=== PATIENT | male | born 1990 | race Caucasian/White ===

== ENCOUNTER 2022-02-13 19:49 | Inpatient (IN) | payer OTHER ==
[2022-02-13] MEDS ORDERED: SODIUM CHLORIDE 0.9% 1,000 ML IV STA ×3 (21:47→23:45)
--- NOTE | 2022-02-13 22:16 | ED ---
General Adult HPI <Lamin Hogue - Last Filed: 02/13/22 23:53> - General Source: patient, RN notes reviewed Mode of arrival: wheelchair Limitations: no limitations <Melinda Jeffries - Last Filed: 02/14/22 05:54> - General Chief complaint: Skin/Abscess/Foreign Body Stated complaint: Pain and redness in leg,Diabetic Time Seen by Provider: 02/13/22 20:28 - History of Present Illness Initial comments: 31-year-old male presents to emergency department for evaluation of wound drainage from a diabetic foot ulcer and pressure ulcers on the buttocks. Patient has redness extending from the right foot up the right leg beyond the knee. Was hospitalized recently for DKA and foot wound and has been on an oral antibiotic at home (had two doses of Doxycycline, the remainder of the medication was mispl aced). Family reports bed sores developed during his hospital stay. Patient reports minimal discomfort. Family expresses concern with worsening drainage. Denies fever, chills, headache, chest pain, shortness of breath, abdominal pain, nausea, vomiting, diarrhea, or dysuria. (Melinda Jeffries) - Related Data Allergies Allergy/AdvReac Type Severity Reaction Status Date / Time No Known Allergies Allergy Verified 02/13/22 20:02 Review of Systems ROS Other: All systems not noted in ROS Statement are negative. <Lamin Hogue - Last Filed: 02/13/22 23:53> ROS Other: All systems not noted in ROS Statement are negative. <Melinda Jeffries - Last Filed: 02/14/22 05:54> ROS Statement: Those systems with pertinent positive or pertinent negative responses have been documented in the HPI. Past Medical History Past Medical History: Diabetes Mellitus Additional Past Medical History / Comment(s): club foot, spinal fibida, hydrocephalus, incontinent History of Any Multi-Drug Resistant Organisms: MRSA Date of last positivie culture/infection: 2016 MDRO Source:: buttocks Past Surgical History: Back Surgery, Joint Replacement Additional Past Surgical History / Comment(s): shunt , left hip, colostomy Past Psychological History: No Psychological Hx Reported Smoking Status: Vaper Past Alcohol Use History: None Reported Past Drug Use History: Marijuana <Melinda Jeffries - Last Filed: 02/14/22 05:54> General Exam Limitations: physical limitation (Wheelchair dependent; history of spina bifida) General appearance: alert (This is a pleasant well-nourished male in no acute distress. Initial temperature 99.7, pulse 133, respirations 18, blood pressure 121/74, pulse ox 98% on room air.), in no apparent distress ENT exam: Present: normal exam, normal oropharynx, mucous membranes moist Respiratory exam: Present: normal lung sounds bilaterally. Absent: respiratory distress, wheezes, rales, rhonchi, stridor, chest wall tenderness Cardiovascular Exam: Present: tachycardia, normal heart sounds GI/Abdominal exam: Present: soft, normal bowel sounds, other (Open stoma from which patient is stooling. Is unable to fit an ostomy pouch therefore uses a depends to contain excrement.). Absent: distended, tenderness, guarding, bouchra ound, rigid Right Lower Leg exam: Present: tenderness, swelling, erythema (erythema extends diffusely from foot to lower leg; skin warm to touch; taut appearance to skin) Foot/Toe exam: Absent: normal inspection (healing wound distal aspect first digit. Open wound on heel draining.) Neurovascular tendon exam: Present: no vascular compromise Neurological exam: Present: alert, oriented X3 Psychiatric exam: Present: normal affect, normal mood Skin exam: Present: other (open wound on left buttock with tunneling appearance and thick foul smelling drainage.) <Melinda Jeffries - Last Filed: 02/14/22 05:54> Course <Melinda Jeffries - Last Filed: 02/14/22 05:54> Vital Signs 02/13/22 02/14/22 20:02 00:50 Temperature 99.7 F H 102 F H Pulse Rate 133 H 108 H Respiratory 18 18 Rate Blood Pressure 121/74 134/74 O2 Sat by Pulse 98 94 L Oximetry - Reevaluation(s) Reevaluation #1: 02/13/22 23:00 Upon reevaluation, patient continues to rest comfortably with no complaints of pain. He is receiving IV fluid bolus per sepsis protocol at ideal body weight. Antibiotic treatment is initiated. Heart rate is improving from 130s to 110s. PE: Alert and oriented 4, answers questions appropriately. Lung sounds are clear to auscultation. Heart rate regular. Abdomen soft and nontender. Right lower extremity remains erythematous and edematous. Wound cultures were collected prior to antibiotic initiation. 02/14/22 00:[address] Cardona who agrees to accept this patient. (Melinda Jeffries) Medical Decision Making - Lab Data Result diagrams: 02/13/22 21:55 02/13/22 21:55 <Lamin Hogue - Last Filed: 02/13/22 23:53> - Lab Data Result diagrams: 02/13/22 21:55 02/13/22 21:55 - EKG Data EKG shows normal: sinus rhythm Rate: normal <Melinda Jeffries - Last Filed: 02/14/22 05:54> - Medical Decision Making This is a pleasant 31-year-old male with a history of spina bifida, hydrocephalus, diabetes, and recurrent wounds who presents to the emergency department for evaluation of poorly healing wound on the right foot and open wound on the buttocks. Upon exam, patient reports feeling well and in no acute distress. His initial temperature is mildly elevated, though he was tachycardic. Given his obvious source of infection, there was concern for sepsis. Initial IV fluids were ordered per ideal body weight. Antibiotic treatment with vancomycin was initiated. Patient declined pain medicine. Laboratory studies were obtained showing leukocytosis and mild hypokalemia. Potassium was supplemented orally. Patient was given Tylenol for fever. Heart rate did improve with IV fluids. Patient will be admitted to the hospital for further evaluation and treatment. Attending: Lennie. (Melinda Jeffries) - Lab Data Lab Results 02/13/22 02/13/22 02/13/22 Range/Units 21:55 21:55 21:55 WBC 20.1 H (3.8-10.6) k/uL RBC 3.12 L (4.30-5.90) m/uL Hgb 8.9 L (13.0-17.5) gm/dL Hct 26.8 L (39.0-53.0) % MCV 86.0 (80.0-100.0) fL MCH 28.7 (25.0-35.0) pg MCHC 33.4 (31.0-37.0) g/dL RDW 13.0 (11.5-15.5) % Plt Count 319 (150-450) k/uL MPV 8.6 Neutrophils % 83 % Lymphocytes % 11 % Monocytes % 4 % Eosinophils % 0 % Basophils % 0 % Neutrophils # 16.6 H (1.3-7.7) k/uL Lymphocytes # 2.2 (1.0-4.8) k/uL Monocytes # 0.8 (0-1.0) k/uL Eosinophils # 0.1 (0-0.7) k/uL Basophils # 0.0 (0-0.2) k/uL PT 11.8 (9.0-12.0) sec INR 1.1 (<1.2) APTT 28.3 (22.0-30.0) sec Sodium 135 L (137-145) mmol/L Potassium 3.1 L (3.5-5.1) mmol/L Chloride 97 L (98-107) mmol/L Carbon Dioxide 25 (22-30) mmol/L Anion Gap 13 mmol/L BUN 17 (9-20) mg/dL Creatinine 0.71 (0.66-1.25) mg/dL Est GFR (CKD-EPI)AfAm >90 (>60 ml/min/1.73 sqM) Est GFR (CKD-EPI)NonAf >90 (>60 ml/min/1.73 sqM) Glucose 116 H (74-99) mg/dL Plasma Lactic Acid Moises (0.7-2.0) mmol/L Calcium 8.5 (8.4-10.2) mg/dL Total Bilirubin 1.3 (0.2-1.3) mg/dL AST 24 (17-59) U/L ALT 25 (4-49) U/L Alkaline Phosphatase 91 (38-126) U/L Total Protein 7.8 (6.3-8.2) g/dL Albumin 3.7 (3.5-5.0) g/dL 02/13/22 Range/Units 21:55 WBC (3.8-10.6) k/uL RBC (4.30-5.90) m/uL Hgb (13.0-17.5) gm/dL Hct (39.0-53.0) % MCV (80.0-100.0) fL MCH (25.0-35.0) pg MCHC (31.0-37.0) g/dL RDW (11.5-15.5) % Plt Count (150-450) k/uL MPV Neutrophils % % Lymphocytes % % Monocytes % % Eosinophils % % Basophils % % Neutrophils # (1.3-7.7) k/uL Lymphocytes # (1.0-4.8) k/uL Monocytes # (0-1.0) k/uL Eosinophils # (0-0.7) k/uL Basophils # (0-0.2) k/uL PT (9.0-12.0) sec INR (<1.2) APTT (22.0-30.0) sec Sodium (137-145) mmol/L Potassium (3.5-5.1) mmol/L Chloride (98-107) mmol/L Carbon Dioxide (22-30) mmol/L Anion Gap mmol/L BUN (9-20) mg/dL Creatinine (0.66-1.25) mg/dL Est GFR (CKD-EPI)AfAm (>60 ml/min/1.73 sqM) Est GFR (CKD-EPI)NonAf (>60 ml/min/1.73 sqM) Glucose (74-99) mg/dL Plasma Lactic Acid Moises 1.8 (0.7-2.0) mmol/L Calcium (8.4-10.2) mg/dL Total Bilirubin (0.2-1.3) mg/dL AST (17-59) U/L ALT (4-49) U/L Alkaline Phosphatase (38-126) U/L Total Protein (6.3-8.2) g/dL Albumin (3.5-5.0) g/dL - EKG Data EKG Comments: EKG obtained at 343 shows sinus rhythm with right bundle branch block. Ventricular rate 94, ME interval 138, QRS duration 124, QT/QTC 370/421. Interpretation abnormal ECG. (Melinda Jeffries) Disposition Is patient prescribed a controlled substance at d/c from ED?: No <Lamin Hogue - Last Filed: 02/13/22 23:53> Is patient prescribed a controlled substance at d/c from ED?: No Decision Date: 02/13/22 Decision Time: 23:53 <Melinda Jeffries - Last Filed: 02/14/22 05:54> Clinical Impression: Cellulitis of right lower extremity, Diabetic foot infection, Wound, open, buttock, Sepsis, Tachycardia, Weakness, Leukocytosis Disposition: ADMITTED IP TO THIS HOSP Condition: Fair
[2022-02-13 22:27] LABS: Basophils % (A) 0 %; Eosinophils # (A) 0.1 k/uL (0-0.7); Eosinophils % (A) 0 %; HCT 26.8 % (39.0-53.0); HGB 8.9 gm/dL (13.0-17.5); Lymphocytes # (A) 2.2 k/uL (1.0-4.8); Lymphocytes % (A) 11 %; MCH 28.7 pg (25.0-35.0); MCHC 33.4 g/dL (31.0-37.0); Mean Platelet Volume 8.6; Monocytes # (A) 0.8 k/uL (0-1.0); Monocytes % (A) 4 %; Neutrophils # (A) 16.6 k/uL (1.3-7.7); Neutrophils % (A) 83 %; Platelet Count 319 k/uL (150-450); RBC 3.12 m/uL (4.30-5.90); WBC 20.1 k/uL (3.8-10.6)
[2022-02-13 22:35] LABS: INR 1.1 (<1.2); Partial Thromboplastin Time 28.3 sec (22.0-30.0); Prothrombin Time 11.8 sec (9.0-12.0)
[2022-02-13 22:42] LABS: ALT 25 U/L (4-49); AST 24 U/L (17-59); African American GFR (CKD) >90 (>60 ml/min/1.73 sqM); Albumin 3.7 g/dL (3.5-5.0); Alkaline Phosphatase 91 U/L (38-126); Anion Gap 13 mmol/L; Blood Urea Nitrogen 17 mg/dL (9-20); Calcium 8.5 mg/dL (8.4-10.2); Carbon Dioxide 25 mmol/L (22-30); Chloride 97 mmol/L (98-107); Glucose 116 mg/dL (74-99); Non-African American GFR(CKD) >90 (>60 ml/min/1.73 sqM); Potassium 3.1 mmol/L (3.5-5.1); Sodium 135 mmol/L (137-145); Total Bilirubin 1.3 mg/dL (0.2-1.3); Total Protein 7.8 g/dL (6.3-8.2)
[2022-02-13] MEDS: SODIUM CHLORIDE 0.9% 500 ML 500 ML IV SCH (23:00)
[2022-02-13] MEDS ORDERED: POTASSIUM CHLORIDE ER 20 MEQ TAB.ER PO STA (23:14)
[2022-02-13] MEDS ORDERED: VANCOMYCIN IV PER PHARMACY 1 EACH MISC MISCELLANE PRN (23:19)
[2022-02-13] MEDS ORDERED: ACETAMINOPHEN TAB 500 MG TAB PO STA (23:44)
[2022-02-13] MEDS ORDERED: PIPERACILLIN-TAZOBACTAM 3.375 GM in SODIUM CHLORIDE 0.9% 100 ML IVPB STA (23:51)
[2022-02-13] MEDS ORDERED: ONDANSETRON 4 MG/2 ML VIAL IVP PRN (23:52)
[2022-02-13] MEDS ORDERED: MORPHINE SULFATE 4 MG/ML SYRINGE IV PRN (23:52)
[2022-02-13] MEDS ORDERED: PIPERACILLIN-TAZOBACTAM 3.375 GM in SODIUM CHLORIDE 0.9% 100 ML IVPB ONE (23:54)
[2022-02-14] MEDS ORDERED: VANCOMYCIN 1,500 MG in SODIUM CHLORIDE 0.9% 250 ML IVPB ONE ×2
[2022-02-14] MEDS ORDERED: PIPERACILLIN-TAZOBACTAM 3.375 GM in SODIUM CHLORIDE 0.9% 100 ML IVPB SCH ×2
--- NOTE | 2022-02-14 01:49 | P.HPIM ---
History of Present Illness H&P Date: 02/14/22 Chief Complaint: right heel wound 31 year old male with paraplegia 2/2 spina bifida, DM patient was recently hospitalized at [facility] , where he was treated for DKA, and right heel wound, he was discharged on doxycycline and also found to have a buttock pressure ulcer after this hospital course. family was not happy with that, and now have noticed the wound has gotten worse with foul drainage in the buttock area, along with worsening wound over the right heel, with erythema spreading proximally . he seems to have misplaced his antibiotics. and presents today seeking more help with is wounds. he denies any fever or chills, he does not have any pain (however he has history of paraplegia and has lost sensation in his legs.) denies any changes in his bowel habits ( has a diverting colostomy) no GI bleeding, no urinary changes (incontinent to urine ) denies any chest pain or trouble breathing, however does report some runny nose. in the ED , he was spiking a fever, WBC 20s, anemia , and hypokalemia , lactic acid was normal Review of Systems Pertinent positives as noted in HPI. All other systems were reviewed and are neg ative Past Medical History Past Medical History: Diabetes Mellitus Additional Past Medical History / Comment(s): club foot, spinal bifida, hydrocephalus, incontinent History of Any Multi-Drug Resistant Organisms: MRSA Date of last positivie culture/infection: 2015 MDRO Source:: buttocks Past Surgical History: Back Surgery, Joint Replacement Additional Past Surgical History / Comment(s): shunt , left hip, colostomy Past Psychological History: No Psychological Hx Reported Smoking Status: Vaper Past Alcohol Use History: None Reported Past Drug Use History: Marijuana - Past Family History family Additional Family Medical History / Comment(s): no report of CAD Medications and Allergies Allergies Allergy/AdvReac Type Severity Reaction Status Date / Time No Known Allergies Allergy Verified 02/13/22 20:02 Physical Exam Vitals: Vital Signs Temp Pulse Resp BP Pulse Ox 02/14/22 00:50 102 F H 108 H 18 134/74 94 L 02/13/22 20:02 99.7 F H 133 H 18 121/74 98 Intake and Output 02/13/22 02/13/22 02/14/22 14:59 22:59 06:59 Other: Weight 99.79 kg Constitutional: No acute distress, conversant, pleasant Eyes: Anicteric sclerae, moist conjunctiva, Pupils equal round reactive to light ENMT: NC/AT Oropharynx clear, no erythema, or exudates Neck: Supple, FROM, no masses, or JVD No carotid bruits No thyromegaly Lungs: Clear to auscultation Clear to percussion Normal respiratory effort, no accessory muscle use Cardiovascular: Heart regular in rate and rhythm, No murmurs, gallops, or rubs No peripheral edema Abdominal: Soft Nontender, no guarding, rebound or rigidity Abdomen moving with respiration Normoactive bowel sounds abdominal wall hernia noted functioning diverting colostomy Skin: large ulcer over the right heel, with dark necrotic tissue bed, surrounded by erythema, warm to the touch, draining foul smelling, erythema extending to the knee. also reported (not examined) left buttock ulcer with deep tunneling and foul smelling drainage. Extremities: clubbing bilateral feet. Pedal pulses intact and symmetrical Radial pulses intact and symmetrical No calf tenderness Psychiatric: Alert and oriented to person, place and time Appropriate affect fair judgement Neuro Muscles Strength 5/5 in bilateral upper extremities, lower extremities with paraplegia no sensation from the waste down Cranial nerves II-XII grossly intact Lymphatics: no palpable cervical or supraclavicular , lymph nodes Results CBC & Chem 7: 02/13/22 21:55 02/13/22 21:55 Labs: Abnormal Lab Results - Last 24 Hours (Table) 02/13/22 02/13/22 Range/Units 21:55 21:55 WBC 20.1 H (3.8-10.6) k/uL RBC 3.12 L (4.30-5.90) m/uL Hgb 8.9 L (13.0-17.5) gm/dL Hct 26.8 L (39.0-53.0) % Neutrophils # 16.6 H (1.3-7.7) k/uL Sodium 135 L (137-145) mmol/L Potassium 3.1 L (3.5-5.1) mmol/L Chloride 97 L (98-107) mmol/L Glucose 116 H (74-99) mg/dL Assessment and Plan Assessment: sepsis secondary to foot ulcer with cellulitis DM paraplegia with historyof spina bifida hypokalemia anemia , denies GI bleeding plan follow up cultures inititaed on vanco and zosyn tylenol for fever IVF hydration with normal saline Gen surg consult for wound debridement pain control with morphine if needed monitor hgb , denies GI bleeding insulin sliding scale for DM replace K , and follow up levels Full code DVT PPX heparin sc tid
[2022-02-14] MEDS: SODIUM CHLORIDE 0.9% 1,000 ML IV SCH ×2 (02:09→07:35)
[2022-02-14] MEDS ORDERED: ACETAMINOPHEN TAB 325 MG TAB PO PRN (07:33)
[2022-02-14 08:34] LABS: Glucose,Whole Blood 109 mg/dL (70-110)
[2022-02-14] MEDS: INSULIN ASPART (NovoLOG) 100 UNIT/ML VIAL SQ SCH ×4 (08:58→20:29)
[2022-02-14 09:32] LABS: African American GFR (CKD) 147.8 (60.0-200.0); Anion Gap 10.1 mmol/L (10.00-18.00); Blood Urea Nitrogen 11.9 mg/dL (9.0-27.0); Calcium 7.9 mg/dL (8.7-10.3); Carbon Dioxide 23.9 mmol/L (20.0-27.5); Non-African American GFR(CKD) 127.5 (60.0-200.0); Potassium 3.3 mmol/L (3.5-5.5)
--- NOTE | 2022-02-14 09:54 | P.PN ---
Progress Note - Text Progress Note Date: 02/14/22 Hospitalist Interval Note Patient seen and examined at bedside. Vital signs reviewed General: non toxic, no distress, appears at stated age, obese Derm: warm, dry Head: atraumatic, normocephalic, symmetric Eyes: EOMI, no lid lag, anicteric sclera Mouth: no lip lesion, mucus membranes moist Cardiovascular: S1S2 reg, no murmur Lungs: CTA bilateral, no rhonchi, no rales , no accessory muscle use Abdominal: soft, nontender to palpation, no guarding, no appreciable organomegaly, ostomy site appears clean Ext: Right foot cellulitis, lower extremity paralysis Neuro: CN II-XI grossly intact, no focal neuro deficits Psych: Alert, oriented, appropriate affect Assessment/Plan: Sepsis Right foot Ulcer with cellulitis Left buttock ulcer Hyperkalemia Paraplegia with history of spina bifida Anemia -Wound care -IV antibiotics -Surgery consult, ID consult This is an update note for patient , for full note on 02/14/22 at 1:07. There is no charge associated with this note.
[2022-02-14] MEDS: HEPARIN SODIUM,PORCINE/PF 5,000 UNIT/0.5 ML SYRINGE SQ SCH ×2 (11:42→17:51)
[2022-02-14] MEDS: VANCOMYCIN 1,500 MG in SODIUM CHLORIDE 0.9% 250 ML IVPB SCH ×2 (11:51→18:26)
[2022-02-14] MEDS: PIPERACILLIN-TAZOBACTAM 3.375 GM in SODIUM CHLORIDE 0.9% 100 ML IVPB SCH ×2 (12:42→19:22)
[2022-02-14] MEDS ORDERED: VANCOMYCIN 1,500 MG in SODIUM CHLORIDE 0.9% 250 ML IVPB SCH (13:00)
--- NOTE | 2022-02-14 14:40 | P.GSHP ---
History of Present Illness 31-year-old gentleman history of paraplegia patient came in with history of wound on the right heel history of diabetes mellitus history of sacral wound patient has been recently received induction Ash has been discharged consulted for wound debridement and deep culture Medical history history of diabetes mellitus history of paraplegia history of hypertension Personal history ALLERGY to penicillin Neck examination neck is supple no bruit appreciated Chest is clear good and both lungs Abdomen is soft nontender Femorals are 1+ bilateral patient Has a wound on the right heel with some debridement tissue Plan is debridement and deep culture we will arrange today Past Medical History Past Medical History: Diabetes Mellitus Additional Past Medical History / Comment(s): club foot, spinal fibida, hydrocephalus, kidney stones, right heel wound History of Any Multi-Drug Resistant Organisms: MRSA Date of last positivie culture/infection: 2015 MDRO Source:: buttocks Past Surgical History: Back Surgery, Joint Replacement Additional Past Surgical History / Comment(s): shunt , left hip, colostomy Past Anesthesia/Blood Transfusion Reactions: No Reported Reaction Past Psychological History: No Psychological Hx Reported Smoking Status: Vaper Past Alcohol Use History: None Reported Past Drug Use History: Marijuana Additional Drug Use History / Comment(s): Uses marijuana regularly - Past Family History Mother Family Medical History: Blood Disorder Additional Family Medical History / Comment(s): Mother is living and currently age 42. States receives blood transfusions Father History Unknown: Yes Additional Family Medical History / Comment(s): Father at age 50 from unknown cause family Additional Family Medical History / Comment(s): no report of CAD Medications and Allergies Home Medications Medication Instructions Recorded Confirmed Type Atorvastatin [Lipitor] 40 mg PO DAILY 02/14/22 02/14/22 History Doxycycline Hyclate 100 mg PO DAILY 02/14/22 02/14/22 History Ergocalciferol [Vitamin D2 (1250 1,250 mcg PO Q7D 02/14/22 02/14/22 History Mcg = 12933 Iu)] Ferrous Sulfate [Feosol] 325 mg PO DAILY 02/14/22 02/14/22 History Glimepiride [Amaryl] 2 mg PO DAILY 02/14/22 02/14/22 History Insulin Degludec [Tresiba 10 units SQ DAILY 02/14/22 02/14/22 History Flextouch U-100 Pen] Metoprolol Succinate (ER) [Toprol 25 mg PO DAILY 02/14/22 02/14/22 History Xl] Semaglutide [Rybelsus] 3 mg PO DAILY 02/14/22 02/14/22 History lisinopriL [Zestril] 20 mg PO DAILY 02/14/22 02/14/22 History metFORMIN HCL [Glucophage] 1,000 mg PO BID 02/14/22 02/14/22 History Allergies Allergy/AdvReac Type Severity Reaction Status Date / Time No Known Allergies Allergy Verified 02/14/22 10:11 Surgical - Exam Vital Signs Temp Pulse Resp BP Pulse Ox 99.7 F H 133 H 18 121/74 98 02/13/22 20:02 02/13/22 20:02 02/13/22 20:02 02/13/22 20:02 02/13/22 20:02 Results - Labs 02/13/22 21:55 02/14/22 04:41 Abnormal Lab Results - Last 24 Hours (Table) 02/13/22 02/13/22 02/14/22 Range/Units 21:55 21:55 04:41 WBC 20.1 H (3.8-10.6) k/uL RBC 3.12 L (4.30-5.90) m/uL Hgb 8.9 L (13.0-17.5) gm/dL Hct 26.8 L (39.0-53.0) % Neutrophils # 16.6 H (1.3-7.7) k/uL Sodium 135 L 131 L (137-145) mmol/L Potassium 3.1 L 3.3 L (3.5-5.1) mmol/L Chloride 97 L (98-107) mmol/L Glucose 116 H 111 H (74-99) mg/dL Calcium 7.9 L (8.7-10.3) mg/dL Microbiology - Last 24 Hours (Table) 02/14/22 00:40 Wound Culture - Preliminary Buttock 02/14/22 00:40 Wound Culture - Preliminary Foot - Right Diabetes panel 02/13/22 02/14/22 Range/Units 21:55 04:41 Sodium 135 L 131 L (137-145) mmol/L Potassium 3.1 L 3.3 L (3.5-5.1) mmol/L Chloride 97 L 97 (98-107) mmol/L Carbon Dioxide 25 23.9 (22-30) mmol/L BUN 17 11.9 (9-20) mg/dL Creatinine 0.71 0.7 (0.66-1.25) mg/dL Glucose 116 H 111 H (74-99) mg/dL Calcium 8.5 7.9 L (8.4-10.2) mg/dL AST 24 (17-59) U/L ALT 25 (4-49) U/L Alkaline Phosphatase 91 (38-126) U/L Total Protein 7.8 (6.3-8.2) g/dL Albumin 3.7 (3.5-5.0) g/dL Calcium panel 02/13/22 02/14/22 Range/Units 21:55 04:41 Calcium 8.5 7.9 L (8.4-10.2) mg/dL Albumin 3.7 (3.5-5.0) g/dL Pituitary panel 02/13/22 02/14/22 Range/Units 21:55 04:41 Sodium 135 L 131 L (137-145) mmol/L Potassium 3.1 L 3.3 L (3.5-5.1) mmol/L Chloride 97 L 97 (98-107) mmol/L Carbon Dioxide 25 23.9 (22-30) mmol/L BUN 17 11.9 (9-20) mg/dL Creatinine 0.71 0.7 (0.66-1.25) mg/dL Glucose 116 H 111 H (74-99) mg/dL Calcium 8.5 7.9 L (8.4-10.2) mg/dL Adrenal panel 02/13/22 02/14/22 Range/Units 21:55 04:41 Sodium 135 L 131 L (137-145) mmol/L Potassium 3.1 L 3.3 L (3.5-5.1) mmol/L Chloride 97 L 97 (98-107) mmol/L Carbon Dioxide 25 23.9 (22-30) mmol/L BUN 17 11.9 (9-20) mg/dL Creatinine 0.71 0.7 (0.66-1.25) mg/dL Glucose 116 H 111 H (74-99) mg/dL Calcium 8.5 7.9 L (8.4-10.2) mg/dL Total Bilirubin 1.3 (0.2-1.3) mg/dL AST 24 (17-59) U/L ALT 25 (4-49) U/L Alkaline Phosphatase 91 (38-126) U/L Total Protein 7.8 (6.3-8.2) g/dL Albumin 3.7 (3.5-5.0) g/dL
[2022-02-14] MEDS ORDERED: POTASSIUM CHLORIDE ER 20 MEQ TAB.ER PO STA (15:06)
--- NOTE | 2022-02-14 15:08 | P.GSCN ---
History of Present Illness Consult date: 02/14/22 History of present illness: CHIEF COMPLAINT: Drainage and order noted from right heel ulcer and buttocks ulcer HISTORY OF PRESENT ILLNESS: This is a 31-year-old male with a known history of spina bifida and is wheelchair dependent and mostly bedbound. Patient reports that he was in the hospital at [facility] in December for his foot ulcer and diabetic ketoacidosis. During that hospitalization he developed a pressure ulcer on the coccyx area. Patient reports over the last 2 days there is been increase in drainage and odor. Also has had increased drainage and odor from the right heel wound. He has been having fevers as high as 102. He had tachycardia and leukocytosis. Surgical service consulted for debridement of wounds. Patient does have a history of diabetes. PAST MEDICAL HISTORY: See list. PAST SURGICAL HISTORY: Diverting colostomy in 2014 and appendicostomy 2004 MEDICATIONS: See list. ALLERGIES: See list. SOCIAL HISTORY: No illicit drug use. REVIEW OF SYSTEMS: CONSTITUTIONAL: Denies fever or chills. HEENT: Denies blurred vision, vision changes, or eye pain. Denies hemoptysis CARDIOVASCULAR: Denies chest pain or pressure. RESPIRATORY: No shortness of breath. GASTROINTESTINAL: See HPI for pertinent findings HEMATOLOGIC: Denies bleeding disorders. GENITOURINARY: Denies any blood in urine or increased urinary frequency. SKIN: Denies pruitis. Denies rash. PHYSICAL EXAM: VITAL SIGNS: Reviewed GENERAL: Well-developed in no acute distress. HEENT: No sclera icterus. Extraocular movements grossly intact. Moist buccal mucosa. Head is atraumatic, normocephalic. No nasal drainage. ABDOMEN: Soft. Obese. ostomy on the left of the abdomen That is open. Stoma is recessed. Stool present. Bulge located above the the stoma. Opening right of abdomen with yellowish drainage with history of appendicostomy NEUROLOGIC: Alert and oriented. Cranial nerves II through XII grossly intact. SKIN: Large Coccyx wound with foul odor and drainage. There is dark tissue and yellowish tissue. It does track up between the buttocks Extremities: Right heel medial ulceration dark and unhealthy tissue. Follow odor and drainage. Clubbed right foot LABORATORY DATA: WBC 20.1 HGB 8.9 plt 319 Sodium 131 potassium 3.3 creatinine 0.7 IMAGING: ASSESSMENT: 1. Decubitus ulcer of the coccyx area 2. Right heel ulcer 3. Diabetes mellitus 4. Paraplegic with history of spina bifida 5. Hypokalemia PLAN: -Further recommendations forthcoming per surgeon -Continue local wound care -Antibiotics per ID service -Continue supportive care -Continue to correct potassium Thank you for this consultation Physician Slitter Scorer Cut Off Operator note has been reviewed by physician. Signing provider agrees with the documented findings, assessment, and plan of care. Past Medical History Past Medical History: Diabetes Mellitus Additional Past Medical History / Comment(s): club foot, spinal fibida, hydrocephalus, incontinent History of Any Multi-Drug Resistant Organisms: MRSA Year Discovered:: 2016 MDRO Source:: buttocks Past Surgical History: Back Surgery, Joint Replacement Additional Past Surgical History / Comment(s): shunt , left hip, colostomy Past Psychological History: No Psychological Hx Reported Smoking Status: Vaper Past Alcohol Use History: None Reported Past Drug Use History: Marijuana - Past Family History family Additional Family Medical History / Comment(s): no report of CAD Mother Family Medical History: Blood Disorder Additional Family Medical History / Comment(s): Mother is living and currently age 42. States receives blood transfusions Father History Unknown: Yes Additional Family Medical History / Comment(s): Father at age 50 from unknown cause Medications and Allergies Home Medications Medication Instructions Recorded Confirmed Type Atorvastatin [Lipitor] 40 mg PO DAILY 02/14/22 02/14/22 History Doxycycline Hyclate 100 mg PO DAILY 02/14/22 02/14/22 History Ergocalciferol [Vitamin D2 (1250 1,250 mcg PO Q7D 02/14/22 02/14/22 History Mcg = 79880 Iu)] Ferrous Sulfate [Feosol] 325 mg PO DAILY 02/14/22 02/14/22 History Glimepiride [Amaryl] 2 mg PO DAILY 02/14/22 02/14/22 History Insulin Degludec [Tresiba 10 units SQ DAILY 02/14/22 02/14/22 History Flextouch U-100 Pen] Metoprolol Succinate (ER) [Toprol 25 mg PO DAILY 02/14/22 02/14/22 History Xl] Semaglutide [Rybelsus] 3 mg PO DAILY 02/14/22 02/14/22 History lisinopriL [Zestril] 20 mg PO DAILY 02/14/22 02/14/22 History metFORMIN HCL [Glucophage] 1,000 mg PO BID 02/14/22 02/14/22 History Allergies Allergy/AdvReac Type Severity Reaction Status Date / Time No Known Allergies Allergy Verified 02/14/22 10:11 Surgical - Exam Vital Signs Temp Pulse Resp BP Pulse Ox 99.7 F H 133 H 18 121/74 98 02/13/22 20:02 02/13/22 20:02 02/13/22 20:02 02/13/22 20:02 02/13/22 20:02 Results - Labs 02/13/22 21:55 02/14/22 04:41 Abnormal Lab Results - Last 24 Hours (Table) 02/13/22 02/13/22 02/14/22 Range/Units 21:55 21:55 04:41 WBC 20.1 H (3.8-10.6) k/uL RBC 3.12 L (4.30-5.90) m/uL Hgb 8.9 L (13.0-17.5) gm/dL Hct 26.8 L (39.0-53.0) % Neutrophils # 16.6 H (1.3-7.7) k/uL Sodium 135 L 131 L (137-145) mmol/L Potassium 3.1 L 3.3 L (3.5-5.1) mmol/L Chloride 97 L (98-107) mmol/L Glucose 116 H 111 H (74-99) mg/dL Calcium 7.9 L (8.7-10.3) mg/dL Microbiology - Last 24 Hours (Table) 02/14/22 00:40 Wound Culture - Preliminary Buttock 02/14/22 00:40 Wound Culture - Preliminary Foot - Right Diabetes panel 02/13/22 02/14/22 Range/Units 21:55 04:41 Sodium 135 L 131 L (137-145) mmol/L Potassium 3.1 L 3.3 L (3.5-5.1) mmol/L Chloride 97 L 97 (98-107) mmol/L Carbon Dioxide 25 23.9 (22-30) mmol/L BUN 17 11.9 (9-20) mg/dL Creatinine 0.71 0.7 (0.66-1.25) mg/dL Glucose 116 H 111 H (74-99) mg/dL Calcium 8.5 7.9 L (8.4-10.2) mg/dL AST 24 (17-59) U/L ALT 25 (4-49) U/L Alkaline Phosphatase 91 (38-126) U/L Total Protein 7.8 (6.3-8.2) g/dL Albumin 3.7 (3.5-5.0) g/dL Calcium panel 02/13/22 02/14/22 Range/Units 21:55 04:41 Calcium 8.5 7.9 L (8.4-10.2) mg/dL Albumin 3.7 (3.5-5.0) g/dL Pituitary panel 02/13/22 02/14/22 Range/Units 21:55 04:41 Sodium 135 L 131 L (137-145) mmol/L Potassium 3.1 L 3.3 L (3.5-5.1) mmol/L Chloride 97 L 97 (98-107) mmol/L Carbon Dioxide 25 23.9 (22-30) mmol/L BUN 17 11.9 (9-20) mg/dL Creatinine 0.71 0.7 (0.66-1.25) mg/dL Glucose 116 H 111 H (74-99) mg/dL Calcium 8.5 7.9 L (8.4-10.2) mg/dL Adrenal panel 02/13/22 02/14/22 Range/Units 21:55 04:41 Sodium 135 L 131 L (137-145) mmol/L Potassium 3.1 L 3.3 L (3.5-5.1) mmol/L Chloride 97 L 97 (98-107) mmol/L Carbon Dioxide 25 23.9 (22-30) mmol/L BUN 17 11.9 (9-20) mg/dL Creatinine 0.71 0.7 (0.66-1.25) mg/dL Glucose 116 H 111 H (74-99) mg/dL Calcium 8.5 7.9 L (8.4-10.2) mg/dL Total Bilirubin 1.3 (0.2-1.3) mg/dL AST 24 (17-59) U/L ALT 25 (4-49) U/L Alkaline Phosphatase 91 (38-126) U/L Total Protein 7.8 (6.3-8.2) g/dL Albumin 3.7 (3.5-5.0) g/dL
--- NOTE | 2022-02-14 16:21 | P.PCN ---
Description of Procedure: Preoperative diagnoses is wound left heel measurement is 5 x 4 cm posterior was same measurement is 5 x 4 x 0.5 Left foot was prepped Hurricaine spray applied to the wound we did the selective debridement left heel wound some devitalized tissue was removed rest of the wound is granulating be sent for deep culture X a silver applied to the wound this should be changed every 48 hours
[2022-02-14 16:53] LABS: Glucose,Whole Blood 143 mg/dL (70-110)
[2022-02-14 19:48] LABS: Glucose,Whole Blood 152 mg/dL (70-110)
[2022-02-15] MEDS: PIPERACILLIN-TAZOBACTAM 3.375 GM in SODIUM CHLORIDE 0.9% 100 ML IVPB SCH ×2 (00:33→07:56)
[2022-02-15] MEDS: HEPARIN SODIUM,PORCINE/PF 5,000 UNIT/0.5 ML SYRINGE SQ SCH ×3 (00:33→18:06)
[2022-02-15] MEDS: SODIUM CHLORIDE 0.9% 1,000 ML IV SCH ×4 (00:35→16:05)
[2022-02-15] MEDS: VANCOMYCIN 1,500 MG in SODIUM CHLORIDE 0.9% 250 ML IVPB SCH ×2 (02:26→09:32)
[2022-02-15 07:08] LABS: Glucose,Whole Blood 147 mg/dL (70-110)
[2022-02-15] MEDS: INSULIN ASPART (NovoLOG) 100 UNIT/ML VIAL SQ SCH ×4 (07:26→22:31)
[2022-02-15] MEDS ORDERED: VANCOMYCIN TROUGH DUE 1 EACH MISC MISCELLANE ONE (08:00)
--- NOTE | 2022-02-15 08:12 | P.CONS ---
History of Present Illness - Reason for Consult Consult date: 02/14/22 Sepsis Requesting physician: Lamin Hogue - Chief Complaint Fever and worsening wound x few days - History of Present Illness Patient is a 31-year-old male with a past medical history significant for spina bifida paraplegia secondary to spina bifida diabetes mellitus was recently admitted at [facility] for diabetic ketoacidosis the patient did have a right heel wound and also with the sacral pressure ulcer patient was sent home on oral doxycycline from [facility] patient now presenting to the [facility] ER for worsening wound to the sacral area as well as worsening swelling redness to the right lower extremity and some drainage from the right foot wound area patient has been complaining of some pressure sensation increasing swelling and redness and drainage on admission to the hospital patient did have a fever of 102 F patient did have white count of 20,000 kidney function was normal liver enzymes are normal, patient was started on vancomycin and Zosyn has been admitted to the hospital infectious disease was consulted for further management of antibiotic therapy Review of Systems Positive point has been mentioned in the HPI rest of the systems are negative Past Medical History Past Medical History: Diabetes Mellitus Additional Past Medical History / Comment(s): club foot, spinal fibida, hydrocephalus, incontinent History of Any Multi-Drug Resistant Organisms: MRSA Year Discovered:: 2016 MDRO Source:: buttocks Past Surgical History: Back Surgery, Joint Replacement Additional Past Surgical History / Comment(s): shunt , left hip, colostomy Past Psychological History: No Psychological Hx Reported Smoking Status: Vaper Past Alcohol Use History: None Reported Past Drug Use History: Marijuana - Past Family History family Additional Family Medical History / Comment(s): no report of CAD Mother Family Medical History: Blood Disorder Additional Family Medical History / Comment(s): Mother is living and currently age 42. States receives blood transfusions Father History Unknown: Yes Additional Family Medical History / Comment(s): Father at age 50 from unknown cause Medications and Allergies Home Medications Medication Instructions Recorded Confirmed Type Atorvastatin [Lipitor] 40 mg PO DAILY 02/14/22 02/14/22 History Doxycycline Hyclate 100 mg PO DAILY 02/14/22 02/14/22 History Ergocalciferol [Vitamin D2 (1250 1,250 mcg PO Q7D 02/14/22 02/14/22 History Mcg = 80908 Iu)] Ferrous Sulfate [Feosol] 325 mg PO DAILY 02/14/22 02/14/22 History Glimepiride [Amaryl] 2 mg PO DAILY 02/14/22 02/14/22 History Insulin Degludec [Tresiba 10 units SQ DAILY 02/14/22 02/14/22 History Flextouch U-100 Pen] Metoprolol Succinate (ER) [Toprol 25 mg PO DAILY 02/14/22 02/14/22 History Xl] Semaglutide [Rybelsus] 3 mg PO DAILY 02/14/22 02/14/22 History lisinopriL [Zestril] 20 mg PO DAILY 02/14/22 02/14/22 History metFORMIN HCL [Glucophage] 1,000 mg PO BID 02/14/22 02/14/22 History Allergies Allergy/AdvReac Type Severity Reaction Status Date / Time No Known Allergies Allergy Verified 02/14/22 10:11 Physical Exam Vitals: Vital Signs Temp Pulse Pulse Resp BP BP Pulse Ox 02/14/22 08:00 99.6 F 85 16 102/55 97 02/14/22 07:31 97 F L 64 18 102/57 97 02/14/22 00:50 102 F H 108 H 18 134/74 94 L 02/13/22 20:02 99.7 F H 133 H 18 121/74 98 Intake and Output 02/13/22 02/14/22 02/14/22 22:59 06:59 14:59 Other: Weight 99.79 kg GENERAL DESCRIPTION: Middle-aged male lying in bed, no distress. No tachypnea or accessory muscle of respiration use. HEENT: Shows Pallor , no scleral icterus. Oral mucous membrane is dry. No pharyngeal erythema or thrush NECK: Trachea central, no thyromegaly. LUNGS: Unlabored breathing. Clear to auscultation anteriorly. No wheeze or crackle. HEART: S1, S2, regular rate and rhythm. No loud murmur ABDOMEN: Soft, no tenderness , guarding or rigidity, no organomegaly EXTREMITIES: Right foot pressure ulcer with slough tissue did have a swelling redness of the right lower extremity. SKIN: No rash, no masses palpable. Unstageable sacral pressure ulcer with necrotic tissue no surrounding redness NEUROLOGICAL: The patient is awake, alert, oriented x3, mood and affect normal. Results CBC & Chem 7: 02/16/22 07:38 02/16/22 07:38 Labs: Abnormal Lab Results - Last 24 Hours (Table) 02/13/22 02/13/22 02/14/22 Range/Units 21:55 21:55 04:41 WBC 20.1 H (3.8-10.6) k/uL RBC 3.12 L (4.30-5.90) m/uL Hgb 8.9 L (13.0-17.5) gm/dL Hct 26.8 L (39.0-53.0) % Neutrophils # 16.6 H (1.3-7.7) k/uL Sodium 135 L 131 L (137-145) mmol/L Potassium 3.1 L 3.3 L (3.5-5.1) mmol/L Chloride 97 L (98-107) mmol/L Glucose 116 H 111 H (74-99) mg/dL Calcium 7.9 L (8.7-10.3) mg/dL Microbiology - Last 24 Hours (Table) 02/14/22 00:40 Wound Culture - Preliminary Foot - Right Assessment and Plan (1) Cellulitis of right lower extremity Current Visit: Yes Status: Acute Code(s): L03.115 - CELLULITIS OF RIGHT LOWER LIMB SNOMED Code(s): 922713175 (2) Diabetic foot infection Current Visit: Yes Status: Acute Code(s): E11.628 - TYPE 2 DIABETES MELLITUS WITH OTHER SKIN COMPLICATIONS; L08.9 - LOCAL INFECTION OF THE SKIN AND SUBCUTANEOUS TISSUE, UNSP SNOMED Code(s): 373522860 (3) Sepsis Current Visit: Yes Status: Acute Code(s): A41.9 - SEPSIS, UNSPECIFIED ORGANISM SNOMED Code(s): 21485002 Plan: 1patient presented to hospital with sepsis in this patient with a fever elevated white count source likely right heel infected pressure ulcer with secondary cellulitis and likely from gram-positive skin dimitri failing outpatient oral doxycycline therapy. 2patient also have a unstageable sacral pressure ulcer with some eschar but no significant surrounding inflammatory changes. 3deep culture has been obtained to guide further antibiotic therapy. 4vancomycin pharmacy to dose target trough of 15 while watching kidney function and vancomycin trough closely however switch Zosyn to cefepime to decrease risk of nephrotoxicity We will follow on clinical condition and cultures to further adjust medication if needed Thank you for this consultation will follow this patient along with you Time with Patient: Greater than 30
[2022-02-15 08:25] LABS: African American GFR (CKD) >90 (>60 ml/min/1.73 sqM); Anion Gap 14 mmol/L; Blood Urea Nitrogen 7 mg/dL (9-20); Calcium 8.3 mg/dL (8.4-10.2); Carbon Dioxide 16 mmol/L (22-30); Chloride 108 mmol/L (98-107); Glucose 154 mg/dL (74-99); Non-African American GFR(CKD) >90 (>60 ml/min/1.73 sqM); Sodium 138 mmol/L (137-145)
[2022-02-15 08:29] LABS: Potassium 4.2 mmol/L (3.5-5.1)
[2022-02-15 08:41] LABS: Basophils # (A) 0.1 k/uL (0-0.2); Basophils % (A) 1 %; Eosinophils # (A) 0.1 k/uL (0-0.7); Eosinophils % (A) 1 %; HCT 38.1 % (39.0-53.0); Hypochromasia Moderate; Lymphocytes # (A) 1.4 k/uL (1.0-4.8); Lymphocytes % (A) 12 %; MCH 28.7 pg (25.0-35.0); MCHC 31.6 g/dL (31.0-37.0); MCV 90.8 fL (80.0-100.0); Mean Platelet Volume 8.5; Monocytes # (A) 0.4 k/uL (0-1.0); Monocytes % (A) 4 %; Neutrophils # (A) 9.1 k/uL (1.3-7.7); Neutrophils % (A) 80 %; Platelet Count 271 k/uL (150-450); RBC 4.19 m/uL (4.30-5.90); WBC 11.3 k/uL (3.8-10.6)
[2022-02-15] MEDS ORDERED: VANCOMYCIN 1,250 MG in SODIUM CHLORIDE 0.9% 250 ML IVPB SCH (11:00)
[2022-02-15 11:14] VITALS: BMI 40.2
[2022-02-15 11:20] LABS: Glucose,Whole Blood 150 mg/dL (70-110)
--- NOTE | 2022-02-15 13:09 | P.PN ---
Subjective Progress Note Date: 02/15/22 CHIEF COMPLAINT: Sacral decubitus ulcer and right heel ulcer HISTORY OF PRESENT ILLNESS: Patient is status post debridement of the right heel ulcer with vascular surgical service. Examined patient's sacral decubitus ulcer with a Dr. abbasi. No need for debridement at this time. Patient reports his pain is controlled. He is tolerating diet. Afebrile. WBC is down from 20 2011.3 hemoglobin is 12 platelets 271 sodium 132 potassium 4.2 creatinine 0.46 Patient seen and examined with Dr. abbasi PHYSICAL EXAM: VITAL SIGNS: Reviewed. GENERAL: Well-developed in no acute distress. HEENT: No sclera icterus. Extraocular movements grossly intact. Moist buccal mucosa. Head is atraumatic, normocephalic. ABDOMEN: Soft. Nondistended. Nontender. Patient does have evidence of a parastomal hernia and stomas recessed. There is stool present. He does have a Buddhist me on the right side of the abdomen NEUROLOGIC: Alert and oriented. Cranial nerves II through XII grossly intact. Skin: Large sacral decubitus ulcer. Foul odor. Drainage noted. Dark unhealthy tissue. ASSESSMENT: 1. Sacral decubitus ulcer 2. Right heel ulcer status post debridement by vascular surgical service 3. Parastomal hernia 4. Diabetes mellitus 5. Paraplegic with history of spina bifida PLAN: -No surgical intervention planned for the sacral decubitus ulcer. Consult wound care service for the sacral decubitus ulcer. -Recommend Aquacel silver packing for the decubitus ulcer -Dr. Abbasi did recommended revision of the parastomal hernia. Patient declined revision at this time. -Continue supportive care -Continue antibiotics per ID service Physician Automobile Club Travel Counselor note has been reviewed by physician. Signing provider agrees with the documented findings, assessment, and plan of care. Objective - Vital Signs Vital signs: Vital Signs Temp 97.9 F 02/15/22 07:43 Pulse 93 02/15/22 07:43 Resp 18 02/15/22 07:43 BP 110/73 02/15/22 07:43 Pulse Ox 95 02/15/22 07:43 FiO2 Intake & Output 02/14/22 02/15/22 02/15/22 18:59 06:59 18:59 Intake Total 240 2260 Output Total 400 1350 Balance -160 910 Weight 99.79 kg 99.79 kg Intake: Intake, IV Titration 1910 Amount Piperacillin-Tazobactam 3 100 .375 gm In Sodium Chloride 0.9% 100 ml @ 25 mls/hr IVPB Q8H [facility] Rx#: [id number] Sodium Chloride 0.9% 1, 1560 000 ml @ 130 mls/hr IV . Q7H42M [facility] Rx#:[id number] Vancomycin 1,500 mg In 250 Sodium Chloride 0.9% 250 ml @ 125 mls/hr IVPB Q12H [facility] Rx#:[id number] Oral 240 350 Output: Urine 400 1350 Other: Voiding Method External Catheter External Catheter External Catheter # Voids 3 # Bowel Movements 3 - Labs CBC & Chem 7: 02/15/22 07:24 02/15/22 07:24 Labs: Abnormal Lab Results - Last 24 Hours (Table) 02/14/22 02/14/22 02/15/22 Range/Units 16:52 19:46 07:06 WBC (3.8-10.6) k/uL RBC (4.30-5.90) m/uL Hgb (13.0-17.5) gm/dL Hct (39.0-53.0) % Neutrophils # (1.3-7.7) k/uL Chloride (98-107) mmol/L Carbon Dioxide (22-30) mmol/L BUN (9-20) mg/dL Creatinine (0.66-1.25) mg/dL Glucose (74-99) mg/dL POC Glucose (mg/dL) 143 H 152 H 147 H (70-110) mg/dL Calcium (8.4-10.2) mg/dL 02/15/22 02/15/22 02/15/22 Range/Units 07:24 07:24 11:18 WBC 11.3 H (3.8-10.6) k/uL RBC 4.19 L (4.30-5.90) m/uL Hgb 12.0 L D (13.0-17.5) gm/dL Hct 38.1 L (39.0-53.0) % Neutrophils # 9.1 H (1.3-7.7) k/uL Chloride 108 H (98-107) mmol/L Carbon Dioxide 16 L (22-30) mmol/L BUN 7 L (9-20) mg/dL Creatinine 0.46 L (0.66-1.25) mg/dL Glucose 154 H (74-99) mg/dL POC Glucose (mg/dL) 150 H (70-110) mg/dL Calcium 8.3 L (8.4-10.2) mg/dL Microbiology - Last 24 Hours (Table) 02/14/22 10:40 Gram Stain - Preliminary Foot - Right Wound Culture - Preliminary 02/14/22 00:40 Gram Stain - Preliminary Foot - Right Wound Culture - Preliminary 02/14/22 00:40 Gram Stain - Preliminary Buttock Wound Culture - Preliminary 02/13/22 22:10 Blood Culture - Preliminary Blood No Growth after 24 hours 02/13/22 21:55 Blood Culture - Preliminary Blood No Growth after 24 hours 02/14/22 16:00 Tissue Culture - Preliminary Foot - Right 02/14/22 10:40 Anaerobic Culture - Preliminary Foot - Right
--- NOTE | 2022-02-15 13:18 | P.CONS ---
History of Present Illness - Reason for Consult Consult date: 02/15/22 wound care - History of Present Illness This is a 31-year-old patient with history of nonhealing pressure ulcers to the right calcaneus and the sacrum. Patient also has history of spina bifida. Patient states that he's been following with home care who is been applying products to the site he is unsure of what they are. Patient has a sacral ulceration measuring approximately 3 x 4 x 2 cm with tunneling and undermining. Significant amount of slough is noted the ulceration is odiferous with purulent drainage noted to the site. Patient would benefit from a surgical debridement. Review Of Systems: Constitutional: No fever, no chills, no night sweats. No weight change. No weakness, fatigue or lethargy. No daytime sleepiness. Integumentary:reports wounds, no lesions. No rash or pruritus. No unusual bruising. No change in hair or nails. Physical exam: General Appearance: Alert, cooperative, no distress, appears stated age. Skin: See HPI all other Skin color, texture, tugor normal, no rashes or lesions. Neurologic: Alert oriented x3 Assessment: 1. Stage IV pressure ulcer sacrum 2. Stage III pressure ulcer right calcaneus 4. Spina bifida Plan: 1. Dr. Leung is managing the right pressure ulcer. 2. Sacral ulceration: Apply absorptive silver, saline moistened gauze, dry gauze and secure with border foam. Changed Monday. Patient would benefit from advance wound care. We'll be happy to see him in the wound care center upon discharge. Thank you for the consultation any questions please contact the wound care center DNP note has been reviewed and discussed with Dr. Goode and the impression and plan of care has been directed as dictated. Past Medical History Past Medical History: Diabetes Mellitus Additional Past Medical History / Comment(s): club foot, spinal fibida, hydrocephalus, incontinent History of Any Multi-Drug Resistant Organisms: MRSA Year Discovered:: 2015 MDRO Source:: buttocks Past Surgical History: Back Surgery, Joint Replacement Additional Past Surgical History / Comment(s): shunt , left hip, colostomy Past Anesthesia/Blood Transfusion Reactions: No Reported Reaction Past Psychological History: No Psychological Hx Reported Smoking Status: Vaper Past Alcohol Use History: None Reported Past Drug Use History: Marijuana - Past Family History Mother Family Medical History: Blood Disorder Additional Family Medical History / Comment(s): Mother is living and currently age 42. States receives blood transfusions Father History Unknown: Yes Additional Family Medical History / Comment(s): Father at age 50 from unknown cause family Additional Family Medical History / Comment(s): no report of CAD Medications and Allergies Home Medications Medication Instructions Recorded Confirmed Type Atorvastatin [Lipitor] 40 mg PO DAILY 02/14/22 02/14/22 History Doxycycline Hyclate 100 mg PO DAILY 02/14/22 02/14/22 History Ergocalciferol [Vitamin D2 (1250 1,250 mcg PO Q7D 02/14/22 02/14/22 History Mcg = 07998 Iu)] Ferrous Sulfate [Feosol] 325 mg PO DAILY 02/14/22 02/14/22 History Glimepiride [Amaryl] 2 mg PO DAILY 02/14/22 02/14/22 History Insulin Degludec [Tresiba 10 units SQ DAILY 02/14/22 02/14/22 History Flextouch U-100 Pen] Metoprolol Succinate (ER) [Toprol 25 mg PO DAILY 02/14/22 02/14/22 History Xl] Semaglutide [Rybelsus] 3 mg PO DAILY 02/14/22 02/14/22 History lisinopriL [Zestril] 20 mg PO DAILY 02/14/22 02/14/22 History metFORMIN HCL [Glucophage] 1,000 mg PO BID 02/14/22 02/14/22 History Allergies Allergy/AdvReac Type Severity Reaction Status Date / Time No Known Allergies Allergy Verified 02/14/22 10:11 Physical Exam Vitals: Vital Signs Temp Pulse Resp BP Pulse Ox 02/15/22 07:43 97.9 F 93 18 110/73 95 02/15/22 01:30 98.1 F 83 19 128/78 98 02/14/22 20:05 17 02/14/22 19:57 98.8 F 86 17 123/77 99 02/14/22 14:00 98.1 F 81 16 110/61 97 Intake and Output 02/14/22 02/15/22 02/15/22 22:59 06:59 14:59 Intake Total 240 2260 Output Total 600 1150 Balance -360 1110 Intake: Intake, IV Titration 1910 Amount Piperacillin-Tazobactam 3 100 .375 gm In Sodium Chloride 0.9% 100 ml @ 25 mls/hr IVPB Q8H [facility] Rx#: [id number] Sodium Chloride 0.9% 1, 1560 000 ml @ 130 mls/hr IV . Q7H42M [facility] Rx#:[id number] Vancomycin 1,500 mg In 250 Sodium Chloride 0.9% 250 ml @ 125 mls/hr IVPB Q12H [facility] Rx#:[id number] Oral 240 350 Output: Urine 600 1150 Other: Voiding Method External Catheter External Catheter # Voids 3 # Bowel Movements 3 Weight 99.79 kg Results CBC & Chem 7: 02/15/22 07:24 02/15/22 07:24 Labs: Abnormal Lab Results - Last 24 Hours (Table) 02/14/22 02/14/22 02/15/22 Range/Units 16:52 19:46 07:06 WBC (3.8-10.6) k/uL RBC (4.30-5.90) m/uL Hgb (13.0-17.5) gm/dL Hct (39.0-53.0) % Neutrophils # (1.3-7.7) k/uL Chloride (98-107) mmol/L Carbon Dioxide (22-30) mmol/L BUN (9-20) mg/dL Creatinine (0.66-1.25) mg/dL Glucose (74-99) mg/dL POC Glucose (mg/dL) 143 H 152 H 147 H (70-110) mg/dL Calcium (8.4-10.2) mg/dL 02/15/22 02/15/22 02/15/22 Range/Units 07:24 07:24 11:18 WBC 11.3 H (3.8-10.6) k/uL RBC 4.19 L (4.30-5.90) m/uL Hgb 12.0 L D (13.0-17.5) gm/dL Hct 38.1 L (39.0-53.0) % Neutrophils # 9.1 H (1.3-7.7) k/uL Chloride 108 H (98-107) mmol/L Carbon Dioxide 16 L (22-30) mmol/L BUN 7 L (9-20) mg/dL Creatinine 0.46 L (0.66-1.25) mg/dL Glucose 154 H (74-99) mg/dL POC Glucose (mg/dL) 150 H (70-110) mg/dL Calcium 8.3 L (8.4-10.2) mg/dL Microbiology - Last 24 Hours (Table) 02/14/22 10:40 Gram Stain - Preliminary Foot - Right Wound Culture - Preliminary 02/14/22 00:40 Gram Stain - Preliminary Foot - Right Wound Culture - Preliminary 02/14/22 00:40 Gram Stain - Preliminary Buttock Wound Culture - Preliminary 02/13/22 22:10 Blood Culture - Preliminary Blood No Growth after 24 hours 02/13/22 21:55 Blood Culture - Preliminary Blood No Growth after 24 hours 02/14/22 16:00 Tissue Culture - Preliminary Foot - Right 02/14/22 10:40 Anaerobic Culture - Preliminary Foot - Right Assessment and Plan (1) Stage II pressure ulcer of right heel Current Visit: Yes Status: Acute Code(s): L89.612 - PRESSURE ULCER OF RIGHT HEEL, STAGE 2 SNOMED Code(s): 44858869386803 (2) Pressure ulcer of sacral region, stage 4 Current Visit: Yes Status: Acute Code(s): L89.154 - PRESSURE ULCER OF SACRAL REGION, STAGE 4 SNOMED Code(s): 00036715723351741 (3) Diabetic foot infection Current Visit: Yes Status: Acute Code(s): E11.628 - TYPE 2 DIABETES MELLITUS WITH OTHER SKIN COMPLICATIONS; L08.9 - LOCAL INFECTION OF THE SKIN AND SUBCUTANEOUS TISSUE, UNSP SNOMED Code(s): 220067522
--- NOTE | 2022-02-15 16:20 | P.PN ---
Subjective Patient seen and examined at bedside. Patient denies chest pain shortness of breath nausea vomiting fevers chills. Patient is resting comfortably in bed. Pain is well-controlled. Objective - Vital Signs Vital signs: Vital Signs Temp 98.4 F 02/15/22 14:00 Pulse 89 02/15/22 14:00 Resp 16 02/15/22 14:00 BP 110/76 02/15/22 14:00 Pulse Ox 97 02/15/22 14:00 FiO2 Intake & Output 02/14/22 02/15/22 02/15/22 18:59 06:59 18:59 Intake Total 240 2260 Output Total 400 1350 Balance -160 910 Weight 99.79 kg 99.79 kg Intake: Intake, IV Titration 1910 Amount Piperacillin-Tazobactam 3 100 .375 gm In Sodium Chloride 0.9% 100 ml @ 25 mls/hr IVPB Q8H [facility] Rx#: [id number] Sodium Chloride 0.9% 1, 1560 000 ml @ 130 mls/hr IV . Q7H42M [facility] Rx#:[id number] Vancomycin 1,500 mg In 250 Sodium Chloride 0.9% 250 ml @ 125 mls/hr IVPB Q12H [facility] Rx#:[id number] Oral 240 350 Output: Urine 400 1350 Other: Voiding Method External Catheter External Catheter External Catheter # Voids 3 # Bowel Movements 3 - Exam General: non toxic, no distress, appears at stated age, obese Derm: warm, dry Head: atraumatic, normocephalic, symmetric Eyes: EOMI, no lid lag, anicteric sclera Mouth: no lip lesion, mucus membranes moist Cardiovascular: S1S2 reg, no murmur Lungs: CTA bilateral, no rhonchi, no rales , no accessory muscle use Abdominal: soft, nontender to palpation, no guarding, no appreciable organomegaly, ostomy site appears clean Ext: Right foot cellulitis, lower extremity paralysis Neuro: CN II-XI grossly intact, no focal neuro deficits Psych: Alert, oriented, appropriate affect - Labs CBC & Chem 7: 02/15/22 07:24 02/15/22 07:24 Labs: Abnormal Lab Results - Last 24 Hours (Table) 02/14/22 02/14/22 02/15/22 Range/Units 16:52 19:46 07:06 WBC (3.8-10.6) k/uL RBC (4.30-5.90) m/uL Hgb (13.0-17.5) gm/dL Hct (39.0-53.0) % Neutrophils # (1.3-7.7) k/uL Chloride (98-107) mmol/L Carbon Dioxide (22-30) mmol/L BUN (9-20) mg/dL Creatinine (0.66-1.25) mg/dL Glucose (74-99) mg/dL POC Glucose (mg/dL) 143 H 152 H 147 H (70-110) mg/dL Calcium (8.4-10.2) mg/dL 02/15/22 02/15/22 02/15/22 Range/Units 07:24 07:24 11:18 WBC 11.3 H (3.8-10.6) k/uL RBC 4.19 L (4.30-5.90) m/uL Hgb 12.0 L D (13.0-17.5) gm/dL Hct 38.1 L (39.0-53.0) % Neutrophils # 9.1 H (1.3-7.7) k/uL Chloride 108 H (98-107) mmol/L Carbon Dioxide 16 L (22-30) mmol/L BUN 7 L (9-20) mg/dL Creatinine 0.46 L (0.66-1.25) mg/dL Glucose 154 H (74-99) mg/dL POC Glucose (mg/dL) 150 H (70-110) mg/dL Calcium 8.3 L (8.4-10.2) mg/dL Microbiology - Last 24 Hours (Table) 02/14/22 16:00 Gram Stain - Preliminary Foot - Right Tissue Culture - Preliminary 02/14/22 10:40 Gram Stain - Preliminary Foot - Right Wound Culture - Preliminary 02/14/22 00:40 Gram Stain - Preliminary Foot - Right Wound Culture - Preliminary 02/14/22 00:40 Gram Stain - Preliminary Buttock Wound Culture - Preliminary 02/13/22 22:10 Blood Culture - Preliminary Blood No Growth after 24 hours 02/13/22 21:55 Blood Culture - Preliminary Blood No Growth after 24 hours 02/14/22 10:40 Anaerobic Culture - Preliminary Foot - Right Assessment and Plan Assessment: Assessment sepsis secondary to foot ulcer with cellulitis DM paraplegia with historyof spina bifida hypokalemia anemia , denies GI bleeding plan follow up cultures inititaed on vanco and zosyn tylenol for fever IVF hydration with normal saline Gen surg consult for wound debridement following pain control with morphine if needed monitor hgb , denies GI bleeding insulin sliding scale for DM Full code DVT PPX heparin sc tid A.m. labs
[2022-02-15 16:33] LABS: Glucose,Whole Blood 120 mg/dL (70-110)
[2022-02-15] MEDS: CEFEPIME 2 GM in SODIUM CHLORIDE 0.9% 100 ML IVPB SCH (18:06)
[2022-02-15] MEDS: VANCOMYCIN 1,250 MG in SODIUM CHLORIDE 0.9% 250 ML IVPB SCH (21:37)
[2022-02-15 22:10] LABS: Glucose,Whole Blood 99 mg/dL (70-110)
[2022-02-16] MEDS: HEPARIN SODIUM,PORCINE/PF 5,000 UNIT/0.5 ML SYRINGE SQ SCH ×4 (00:20→23:40)
[2022-02-16] MEDS: CEFEPIME 2 GM in SODIUM CHLORIDE 0.9% 100 ML IVPB SCH ×4 (00:20→23:34)
[2022-02-16] MEDS: SODIUM CHLORIDE 0.9% 1,000 ML IV SCH ×4 (00:20→23:39)
[2022-02-16] MEDS: VANCOMYCIN 1,250 MG in SODIUM CHLORIDE 0.9% 250 ML IVPB SCH ×4 (05:33→20:44)
[2022-02-16 07:05] LABS: Glucose,Whole Blood 104 mg/dL (70-110)
[2022-02-16] MEDS: INSULIN ASPART (NovoLOG) 100 UNIT/ML VIAL SQ SCH ×4 (09:14→22:04)
[2022-02-16 10:40] LABS: Basophils # (A) 0.04 X 10*3/uL (0.00-0.10); Basophils % (A) 0.5 %; Eosinophils # (A) 0.22 X 10*3/uL (0.04-0.35); Eosinophils % (A) 2.8 %; HGB 11.1 g/dL (13.0-17.0); Immature Grans, Automated 0.8 %; Lymphocytes # (A) 2.01 X 10*3/uL (0.90-5.00); Lymphocytes % (A) 25.4 %; MCH 28.3 pg (27.0-32.0); MCHC 32.6 g/dL (32.0-37.0); MCV 86.7 fL (80.0-97.0); Mean Platelet Volume 10.1 fL (9.5-12.2); Monocytes # (A) 0.37 X 10*3/uL (0.20-1.00); Monocytes % (A) 4.7 %; NRBC Per 100 WBC 0 /100 WBCS (0.0-0.0); Neutrophils # (A) 5.22 X 10*3/uL (1.80-7.70); Neutrophils % (A) 65.8 %; Platelet Count 295 X 10*3/uL (140-440); RBC 3.92 X 10*6/uL (4.40-5.60); RDW 13.2 % (11.5-14.5); WBC 7.92 X 10*3/uL (4.50-10.00)
[2022-02-16 11:23] LABS: Glucose,Whole Blood 122 mg/dL (70-110)
[2022-02-16 11:31] LABS: African American GFR (CKD) 157.7 (60.0-200.0); Albumin 2.7 g/dL (3.8-4.9); Albumin/Globulin Ratio 0.69 (1.60-3.17); BUN/Creat Ratio 9.62 Ratio (12.00-20.00); Blood Urea Nitrogen 5.8 mg/dL (9.0-27.0); Calcium 8.3 mg/dL (8.7-10.3); Carbon Dioxide 21.5 mmol/L (20.0-27.5); Non-African American GFR(CKD) 136.1 (60.0-200.0); Potassium 3.8 mmol/L (3.5-5.5); Total Bilirubin 0.3 mg/dL (0.30-1.20); Total Protein 6.7 g/dL (6.2-8.2)
--- NOTE | 2022-02-16 11:33 | P.PN ---
Subjective Progress Note Date: 02/16/22 CHIEF COMPLAINT: Sacral decubitus ulcer and right heel ulcer HISTORY OF PRESENT ILLNESS: Surgical service following in regards to patient's sacral decubitus ulcer. He has been seen by wound care service. Apparently the silver dressing did fall out during the night. Nursing staff will be replacing it. Patient denies any new pain. Patient is status post debridement of the right heel ulcer with vascular surgical service. Patient has a parastomal hernia. He has difficulty with the ostomy application staying intact. He was seen by the ostomy nurse. At home patient keeps the ostomy open with no covering. Afebrile. WBC has normalized at 7.92 Patient seen and examined with Dr. abbasi PHYSICAL EXAM: VITAL SIGNS: Reviewed. GENERAL: Well-developed in no acute distress. HEENT: No sclera icterus. Extraocular movements grossly intact. Moist buccal mucosa. Head is atraumatic, normocephalic. ABDOMEN: Soft. Nondistended. Nontender. Patient does have evidence of a parastomal hernia and stoma is recessed. There is stool present. He does have appendicostomy on the right side of the abdomen NEUROLOGIC: Alert and oriented. Cranial nerves II through XII grossly intact. Skin: Large sacral decubitus ulcer ASSESSMENT: 1. Sacral decubitus ulcer 2. Right heel ulcer status post debridement by vascular surgical service 3. Parastomal hernia 4. Diabetes mellitus 5. Paraplegic with history of spina bifida PLAN: -No surgical intervention planned for the sacral decubitus ulcer. -Continue local wound care -Dr. Abbasi did recommended revision of the parastomal hernia. Patient is refusing surgical repair of the parastomal hernia this time. -Continue supportive care -Continue antibiotics per ID service Physician [employer] Super[employer] note has been reviewed by physician. Signing provider agrees with the documented findings, assessment, and plan of care. Objective - Vital Signs Vital signs: Vital Signs Temp 97.9 F 02/16/22 08:00 Pulse 80 02/16/22 08:00 Resp 18 02/16/22 08:00 BP 163/73 02/16/22 08:00 Pulse Ox 94 L 02/16/22 08:00 FiO2 Intake & Output 02/15/22 02/16/22 02/16/22 18:59 06:59 18:59 Output Total 700 2100 Balance -700 -2100 Weight 99.79 kg Output: Urine 700 2100 Other: Voiding Method External Catheter External Catheter External Catheter # Voids 2 - Labs CBC & Chem 7: 02/16/22 07:38 02/15/22 07:24 Labs: Abnormal Lab Results - Last 24 Hours (Table) 02/15/22 02/16/22 02/16/22 Range/Units 16:32 07:38 11:22 RBC 3.92 L (4.40-5.60) X 10*6/uL Hgb 11.1 L (13.0-17.0) g/dL Hct 34.0 L (39.6-50.0) % Immature Gran # 0.06 H (0.00-0.04) X 10*3/uL POC Glucose (mg/dL) 120 H 122 H (70-110) mg/dL Microbiology - Last 24 Hours (Table) 02/14/22 10:40 Gram Stain - Final Foot - Right Wound Culture - Final 02/14/22 00:40 Gram Stain - Final Buttock Wound Culture - Final Escherichia coli Proteus mirabilis 02/14/22 00:40 Gram Stain - Final Foot - Right Wound Culture - Final Presumptive Staph aureus 02/13/22 22:10 Blood Culture - Preliminary Blood No Growth after 48 hours 02/13/22 21:55 Blood Culture - Preliminary Blood No Growth after 48 hours 02/14/22 16:00 Gram Stain - Preliminary Foot - Right Tissue Culture - Preliminary Gram Neg Bacilli
--- NOTE | 2022-02-16 13:34 | P.PN ---
Subjective Patient seen and examined at bedside. Patient denies chest pain shortness of breath nausea vomiting fevers or chills. Patient is fairly doing well. Objective - Vital Signs Vital signs: Vital Signs Temp 97.9 F 02/16/22 08:00 Pulse 80 02/16/22 08:00 Resp 18 02/16/22 08:00 BP 163/73 02/16/22 08:00 Pulse Ox 94 L 02/16/22 08:00 FiO2 Intake & Output 02/15/22 02/16/22 02/16/22 18:59 06:59 18:59 Output Total 700 2100 Balance -700 -2100 Weight 99.79 kg Output: Urine 700 2100 Other: Voiding Method External Catheter External Catheter External Catheter # Voids 2 - Exam General: non toxic, no distress, appears at stated age, obese Derm: warm, dry Head: atraumatic, normocephalic, symmetric Eyes: EOMI, no lid lag, anicteric sclera Mouth: no lip lesion, mucus membranes moist Cardiovascular: S1S2 reg, no murmur Lungs: CTA bilateral, no rhonchi, no rales , no accessory muscle use Abdominal: soft, nontender to palpation, no guarding, no appreciable organomegaly, ostomy site appears clean Ext: Right foot cellulitis, lower extremity paralysis Neuro: CN II-XI grossly intact, no focal neuro deficits Psych: Alert, oriented, appropriate affect. - Labs CBC & Chem 7: 02/16/22 07:38 02/16/22 07:38 Labs: Abnormal Lab Results - Last 24 Hours (Table) 02/15/22 02/16/22 02/16/22 Range/Units 16:32 07:38 07:38 RBC 3.92 L (4.40-5.60) X 10*6/uL Hgb 11.1 L (13.0-17.0) g/dL Hct 34.0 L (39.6-50.0) % Immature Gran # 0.06 H (0.00-0.04) X 10*3/uL BUN 5.8 L (9.0-27.0) mg/dL BUN/Creatinine Ratio 9.62 L (12.00-20.00) Ratio POC Glucose (mg/dL) 120 H (70-110) mg/dL Calcium 8.3 L (8.7-10.3) mg/dL Albumin 2.7 L (3.8-4.9) g/dL Globulin 4.0 H (1.6-3.3) g/dL Albumin/Globulin Ratio 0.69 L (1.60-3.17) g/dL 02/16/22 Range/Units 11:22 RBC (4.40-5.60) X 10*6/uL Hgb (13.0-17.0) g/dL Hct (39.6-50.0) % Immature Gran # (0.00-0.04) X 10*3/uL BUN (9.0-27.0) mg/dL BUN/Creatinine Ratio (12.00-20.00) Ratio POC Glucose (mg/dL) 122 H (70-110) mg/dL Calcium (8.7-10.3) mg/dL Albumin (3.8-4.9) g/dL Globulin (1.6-3.3) g/dL Albumin/Globulin Ratio (1.60-3.17) g/dL Microbiology - Last 24 Hours (Table) 02/14/22 10:40 Gram Stain - Final Foot - Right Wound Culture - Final 02/14/22 00:40 Gram Stain - Final Buttock Wound Culture - Final Escherichia coli Proteus mirabilis 02/14/22 00:40 Gram Stain - Final Foot - Right Wound Culture - Final Presumptive Staph aureus 02/13/22 22:10 Blood Culture - Preliminary Blood No Growth after 48 hours 02/13/22 21:55 Blood Culture - Preliminary Blood No Growth after 48 hours 02/14/22 16:00 Gram Stain - Preliminary Foot - Right Tissue Culture - Preliminary Gram Neg Bacilli Assessment and Plan Assessment: Assessment sepsis secondary to foot ulcer with cellulitis DM paraplegia with historyof spina bifida hypokalemia anemia , denies GI bleeding plan follow up cultures inititaed on vanco and zosyn tylenol for fever IVF hydration with normal saline Gen surg for wound debridement following pain control with morphine if needed monitor hgb , denies GI bleeding insulin sliding scale for DM Full code DVT PPX heparin sc tid A.m. labs Disposition: Awaiting wound cultures for antibiotic regimen to be transitioned to orals
[2022-02-16 16:50] LABS: Glucose,Whole Blood 108 mg/dL (70-110)
[2022-02-16 21:53] LABS: Glucose,Whole Blood 148 mg/dL (70-110)
--- NOTE | 2022-02-16 23:20 | P.PN ---
Subjective Progress Note Date: 02/15/22 Principal diagnosis: Right leg infected wound and cellulitis Patient is a 31-year-old male with a past medical history significant for spina bifida and paraplegia diabetes mellitus presented to the hospital with sepsis secondary to the right foot infected wound and cellulitis and also have a pressure ulcer to the sacral area. On today's evaluation that is 02/15/2022, the patient denies having any fever or any chills patient is breathing comfortably. Denies having any chest pain shortness of cough no abdominal pain or diarrhea Objective - Vital Signs Vital signs: Vital Signs Temp 97.9 F 02/15/22 07:43 Pulse 93 02/15/22 07:43 Resp 18 02/15/22 07:43 BP 110/73 02/15/22 07:43 Pulse Ox 95 02/15/22 07:43 FiO2 Intake & Output 02/14/22 02/15/22 02/15/22 18:59 06:59 18:59 Intake Total 240 2260 Output Total 400 1350 Balance -160 910 Weight 99.79 kg 99.79 kg Intake: Intake, IV Titration 1910 Amount Piperacillin-Tazobactam 3 100 .375 gm In Sodium Chloride 0.9% 100 ml @ 25 mls/hr IVPB Q8H [facility] Rx#: [id number] Sodium Chloride 0.9% 1, 1560 000 ml @ 130 mls/hr IV . Q7H42M [facility] Rx#:[id number] Vancomycin 1,500 mg In 250 Sodium Chloride 0.9% 250 ml @ 125 mls/hr IVPB Q12H [facility] Rx#:[id number] Oral 240 350 Output: Urine 400 1350 Other: Voiding Method External Catheter External Catheter External Catheter # Voids 3 # Bowel Movements 3 - Exam GENERAL DESCRIPTION: Young male lying in bed in no distress RESPIRATORY SYSTEM: Unlabored breathing , decreased breath sounds at bases HEART: S1 S2 regular rate and rhythm , ABDOMEN: Soft , no tenderness EXTREMITIES: Right foot wound is currently dressed right leg swelling redness has decreased - Labs CBC & Chem 7: 02/16/22 07:38 02/16/22 07:38 Labs: Abnormal Lab Results - Last 24 Hours (Table) 02/14/22 02/14/22 02/15/22 Range/Units 16:52 19:46 07:06 WBC (3.8-10.6) k/uL RBC (4.30-5.90) m/uL Hgb (13.0-17.5) gm/dL Hct (39.0-53.0) % Neutrophils # (1.3-7.7) k/uL Chloride (98-107) mmol/L Carbon Dioxide (22-30) mmol/L BUN (9-20) mg/dL Creatinine (0.66-1.25) mg/dL Glucose (74-99) mg/dL POC Glucose (mg/dL) 143 H 152 H 147 H (70-110) mg/dL Calcium (8.4-10.2) mg/dL 02/15/22 02/15/22 02/15/22 Range/Units 07:24 07:24 11:18 WBC 11.3 H (3.8-10.6) k/uL RBC 4.19 L (4.30-5.90) m/uL Hgb 12.0 L D (13.0-17.5) gm/dL Hct 38.1 L (39.0-53.0) % Neutrophils # 9.1 H (1.3-7.7) k/uL Chloride 108 H (98-107) mmol/L Carbon Dioxide 16 L (22-30) mmol/L BUN 7 L (9-20) mg/dL Creatinine 0.46 L (0.66-1.25) mg/dL Glucose 154 H (74-99) mg/dL POC Glucose (mg/dL) 150 H (70-110) mg/dL Calcium 8.3 L (8.4-10.2) mg/dL Microbiology - Last 24 Hours (Table) 02/14/22 10:40 Gram Stain - Preliminary Foot - Right Wound Culture - Preliminary 02/14/22 00:40 Gram Stain - Preliminary Foot - Right Wound Culture - Preliminary 02/14/22 00:40 Gram Stain - Preliminary Buttock Wound Culture - Preliminary 02/13/22 22:10 Blood Culture - Preliminary Blood No Growth after 24 hours 02/13/22 21:55 Blood Culture - Preliminary Blood No Growth after 24 hours 02/14/22 16:00 Tissue Culture - Preliminary Foot - Right 02/14/22 10:40 Anaerobic Culture - Preliminary Foot - Right Assessment and Plan (1) Cellulitis of right lower extremity Current Visit: Yes Status: Acute Code(s): L03.115 - CELLULITIS OF RIGHT LOWER LIMB SNOMED Code(s): 348154620 (2) Diabetic foot infection Current Visit: Yes Status: Acute Code(s): E11.628 - TYPE 2 DIABETES MELLITUS WITH OTHER SKIN COMPLICATIONS; L08.9 - LOCAL INFECTION OF THE SKIN AND SUBCUTANEOUS TISSUE, UNSP SNOMED Code(s): 227218742 Plan: 1patient presented to hospital with sepsis in this patient with a fever e levated white count source likely right heel infected pressure ulcer with secondary cellulitis and likely from gram-positive skin dimitri failing outpatient oral doxycycline therapy. 2patient also have a unstageable sacral pressure ulcer with some eschar but no significant surrounding inflammatory changes. 3deep culture has been obtained which are currently pending 4patient to continue with vancomycin pharmacy to dose target trough of 15 while watching kidney function and cefepime and monitor clinical course closely
--- NOTE | 2022-02-16 23:22 | P.PN ---
Subjective Progress Note Date: 02/16/22 Principal diagnosis: Right leg infected wound and cellulitis Patient is a 31-year-old male with a past medical history significant for spina bifida and paraplegia diabetes mellitus presented to the hospital with sepsis secondary to the right foot infected wound and cellulitis and also have a pressure ulcer to the sacral area. On today's evaluation that is 02/16/2022, the patient remains to be afebrile, patient is breathing comfortably on room air. Denies having any chest pain shortness of cough no abdominal pain or diarrhea Objective - Vital Signs Vital signs: Vital Signs Temp 97.9 F 02/16/22 08:00 Pulse 80 02/16/22 08:00 Resp 18 02/16/22 08:00 BP 163/73 02/16/22 08:00 Pulse Ox 94 L 02/16/22 08:00 FiO2 Intake & Output 02/15/22 02/16/22 02/16/22 18:59 06:59 18:59 Output Total 700 2100 Balance -700 -2100 Weight 99.79 kg Output: Urine 700 2100 Other: Voiding Method External Catheter External Catheter External Catheter # Voids 2 - Exam GENERAL DESCRIPTION: Young male lying in bed in no distress RESPIRATORY SYSTEM: Unlabored breathing , decreased breath sounds at bases HEART: S1 S2 regular rate and rhythm , ABDOMEN: Soft , no tenderness EXTREMITIES: Right foot wound is currently dressed right leg swelling redness has decreased - Labs CBC & Chem 7: 02/16/22 07:38 02/16/22 07:38 Labs: Abnormal Lab Results - Last 24 Hours (Table) 02/15/22 02/16/22 02/16/22 Range/Units 16:32 07:38 07:38 RBC 3.92 L (4.40-5.60) X 10*6/uL Hgb 11.1 L (13.0-17.0) g/dL Hct 34.0 L (39.6-50.0) % Immature Gran # 0.06 H (0.00-0.04) X 10*3/uL BUN 5.8 L (9.0-27.0) mg/dL BUN/Creatinine Ratio 9.62 L (12.00-20.00) Ratio POC Glucose (mg/dL) 120 H (70-110) mg/dL Calcium 8.3 L (8.7-10.3) mg/dL Albumin 2.7 L (3.8-4.9) g/dL Globulin 4.0 H (1.6-3.3) g/dL Albumin/Globulin Ratio 0.69 L (1.60-3.17) g/dL 02/16/22 Range/Units 11:22 RBC (4.40-5.60) X 10*6/uL Hgb (13.0-17.0) g/dL Hct (39.6-50.0) % Immature Gran # (0.00-0.04) X 10*3/uL BUN (9.0-27.0) mg/dL BUN/Creatinine Ratio (12.00-20.00) Ratio POC Glucose (mg/dL) 122 H (70-110) mg/dL Calcium (8.7-10.3) mg/dL Albumin (3.8-4.9) g/dL Globulin (1.6-3.3) g/dL Albumin/Globulin Ratio (1.60-3.17) g/dL Microbiology - Last 24 Hours (Table) 02/14/22 10:40 Anaerobic Culture - Final Foot - Right 02/14/22 10:40 Gram Stain - Final Foot - Right Wound Culture - Final 02/14/22 00:40 Gram Stain - Final Buttock Wound Culture - Final Escherichia coli Proteus mirabilis 02/14/22 00:40 Gram Stain - Final Foot - Right Wound Culture - Final Presumptive Staph aureus 02/13/22 22:10 Blood Culture - Preliminary Blood No Growth after 48 hours 02/13/22 21:55 Blood Culture - Preliminary Blood No Growth after 48 hours 02/14/22 16:00 Gram Stain - Preliminary Foot - Right Tissue Culture - Preliminary Gram Neg Bacilli Assessment and Plan (1) Cellulitis of right lower extremity Current Visit: Yes Status: Acute Code(s): L03.115 - CELLULITIS OF RIGHT LOWER LIMB SNOMED Code(s): 390828992 (2) Diabetic foot infection Current Visit: Yes Status: Acute Code(s): E11.628 - TYPE 2 DIABETES MELLITUS WITH OTHER SKIN COMPLICATIONS; L08.9 - LOCAL INFECTION OF THE SKIN AND SUBCUTANEOUS TISSUE, UNSP SNOMED Code(s): 110965263 Plan: 1patient presented to hospital with sepsis in this patient with a fever elevated white count source likely right heel infected pressure ulcer with secon nhung cellulitis and likely from gram-positive skin dimitri failing outpatient oral doxycycline therapy. 2 deep culture has been obtained which are currently growing E. coli enterococcus strep and staph aureus with sensitivity pending 3patient seemed Clinical Improvement Fever Resolved and the Patient White Count Has Normalized, Patient to continue with vancomycin pharmacy to dose target trough of 15 while watching kidney function and cefepime while waiting for cultures to finalize to determine his discharge antibiotics
[2022-02-17] MEDS: VANCOMYCIN 1,250 MG in SODIUM CHLORIDE 0.9% 250 ML IVPB SCH ×3 (03:12→21:53)
[2022-02-17] MEDS: SODIUM CHLORIDE 0.9% 1,000 ML IV SCH ×3 (04:46→17:26)
[2022-02-17 07:14] LABS: Glucose,Whole Blood 110 mg/dL (70-110)
[2022-02-17] MEDS: INSULIN ASPART (NovoLOG) 100 UNIT/ML VIAL SQ SCH ×4 (07:42→20:36)
[2022-02-17] MEDS: CEFEPIME 2 GM in SODIUM CHLORIDE 0.9% 100 ML IVPB SCH ×3 (07:53→23:56)
[2022-02-17] MEDS: HEPARIN SODIUM,PORCINE/PF 5,000 UNIT/0.5 ML SYRINGE SQ SCH ×3 (07:53→23:56)
[2022-02-17] MEDS ORDERED: VANCOMYCIN TROUGH DUE 1 EACH MISC MISCELLANE ONE (11:00)
[2022-02-17 11:19] LABS: Glucose,Whole Blood 116 mg/dL (70-110)
[2022-02-17 12:09] LABS: African American GFR (CKD) >90 (>60 ml/min/1.73 sqM); Anion Gap 10 mmol/L; Blood Urea Nitrogen 6 mg/dL (9-20); Calcium 8.4 mg/dL (8.4-10.2); Carbon Dioxide 23 mmol/L (22-30); Chloride 105 mmol/L (98-107); Glucose 115 mg/dL (74-99); Non-African American GFR(CKD) >90 (>60 ml/min/1.73 sqM); Potassium 3.9 mmol/L (3.5-5.1); Sodium 138 mmol/L (137-145)
--- NOTE | 2022-02-17 12:53 | CDI ---
Documentation Clarification Form Date: 02/17/2022 12:42:43 PM From: Katia Del Cid CCS, CCDS Admit Date: 02/13/2022 11:21:00 PM Patient Name: Juan Moffett Visit Number: [id number] Discharge Date: ATTENTION: The Clinical Documentation Specialists (CDI) and [facility] Coding Staff appreciate your assistance in clarifying documentation. Please respond to the clarification below the line at the bottom and electronically sign. The CDI & [facility] Coding staff will review the response and follow-up if needed. Please note: Queries are made part of the Legal Health Record. If you have any questions, please contact the author of this message via ITS. Dr. Obie Nails: Unspecified anemia is documented in the 02/14 H/P and in subsequent Attending Physician Progress Notes 02/14 through 02/16. Additional specificity regarding the Type & Acuity if Anemia is requested. History/Risk Factors per the 02/14 H/P: Paraplegia due to Spina Bifida, Diabetes, Club Foot, Hydrocepalus, Incontinent, MRSA Buttocks 2015. Clinical indicators: Presented to the ED on 02/13 for evaluation of drainage from a diabetic foot ulcer and pressure ulcers on the buttocks with redness extending from the right foot up the right leg beyond the knee, recent admit for DKA & foot wound on oral antibiotics. Hemoglobin: 02/13: 8.9. 02/15: 12.0. 02/16: 11.1. Hematocrit: 02/13: 26.8. 02/15: 38.1. 02/16: 34.0. Treatment 02/13: Daily Wound Care, Blood cultures x2, IV Na Chl 500 mls @ 1000 mls/hr q35M, IV Na Chl 1,000 mls @ 999 mls/hr q1H x2, IV Na Chl 1,000 mls @ 130 mls/hr q7H, po K Dur 40 meq x1, IV Morphine 4 mg q4H/prn, IV Zofran 4 mg q8H/prn, IV Zosyn 100 mls @ 200 mls/hr x1, IV Vancomycin 250 mls @ 125 mls/hr x1. Home meds: Glucophage, Zestril, Rybelsus, Toprol XL, Insulin (Tresiba) sq, Amaryl, Feosol, Vit D2, Doxycycline Hyclate, Lipitor Please clarify the type and acuity of Anemia: [ ] Chronic blood loss anemia [ ] Hemolytic anemia [ ] Drug induced anemia [ ] Nutritional anemia [ x ] Anemia of chronic disease [ ] Unable to determine [ ] Other, please specify (Template Last Revised: June 2020) MTDD
--- NOTE | 2022-02-17 14:50 | P.PN ---
Subjective Progress Note Date: 02/17/22 CHIEF COMPLAINT: Sacral decubitus ulcer and right heel ulcer HISTORY OF PRESENT ILLNESS: Surgical service following in regards to patient's sacral decubitus ulcer. Patient reports his pain is controlled. Culture did grow E. coli and Proteus mirabilis. Afebrile. Patient seen and examined with Dr. abbasi PHYSICAL EXAM: VITAL SIGNS: Reviewed. GENERAL: Well-developed in no acute distress. HEENT: No sclera icterus. Extraocular movements grossly intact. Moist buccal mucosa. Head is atraumatic, normocephalic. ABDOMEN: Soft. Nondistended. Nontender. Patient does have evidence of a parastomal hernia and stoma is recessed. There is stool present. He does have appendicostomy on the right side of the abdomen NEUROLOGIC: Alert and oriented. Cranial nerves II through XII grossly intact. Skin: Large sacral decubitus ulcer ASSESSMENT: 1. Sacral decubitus ulcer 2. Right heel ulcer status post debridement by vascular surgical service 3. Parastomal hernia 4. Diabetes mellitus 5. Paraplegic with history of spina bifida PLAN: -No surgical intervention planned for the sacral decubitus ulcer. -Continue local wound care -Dr. Abbasi did recommended revision of the parastomal hernia. Dr. abbasi did discuss the reasons why the revision would be beneficial and patient continues to refuse surgical repair of the parastomal hernia. -Continue supportive care -Continue antibiotics per ID service Physician Boilermaker Fitter note has been reviewed by physician. Signing provider agrees with the documented findings, assessment, and plan of care. Objective - Vital Signs Vital signs: Vital Signs Temp 98.7 F 02/17/22 08:00 Pulse 79 02/17/22 08:00 Resp 16 02/17/22 08:30 BP 132/85 02/17/22 08:00 Pulse Ox 95 02/17/22 08:00 FiO2 Intake & Output 02/16/22 02/17/22 02/17/22 18:59 06:59 18:59 Intake Total 1080 2490 400 Output Total 2500 700 700 Balance -1420 1790 -300 Intake: Intake, IV Titration 1090 Amount Cefepime 2 gm In Sodium 200 Chloride 0.9% 100 ml @ 25 mls/hr IVPB Q8HR [facility] Rx# :[id number] Sodium Chloride 0.9% 1, 390 000 ml @ 130 mls/hr IV . Q7H42M [facility] Rx#:[id number] Vancomycin 1,250 mg In 500 Sodium Chloride 0.9% 250 ml @ 125 mls/hr IVPB Q8H [facility] Rx#:[id number] Oral 1080 1400 400 Output: Urine 2500 700 700 Other: Voiding Method External Catheter External Catheter - Labs CBC & Chem 7: 02/16/22 07:38 02/17/22 11:19 Labs: Abnormal Lab Results - Last 24 Hours (Table) 02/16/22 02/17/22 02/17/22 Range/Units 21:51 11:18 11:19 BUN 6 L (9-20) mg/dL Creatinine 0.52 L (0.66-1.25) mg/dL Glucose 115 H (74-99) mg/dL POC Glucose (mg/dL) 148 H 116 H (70-110) mg/dL Microbiology - Last 24 Hours (Table) 02/14/22 10:40 Gram Stain - Final Foot - Right Wound Culture - Final 02/13/22 22:10 Blood Culture - Preliminary Blood No Growth after 72 hours 02/13/22 21:55 Blood Culture - Preliminary Blood No Growth after 72 hours 02/14/22 16:00 Gram Stain - Preliminary Foot - Right Tissue Culture - Preliminary Escherichia coli Morganella morganii Group D Enterococcus Strep pyogenes (grp a) 02/14/22 10:40 Anaerobic Culture - Final Foot - Right
--- NOTE | 2022-02-17 17:07 | P.PN ---
Subjective Patient seen and examined at bedside. Patient denied chest pain shortness breath nausea vomiting fevers or chills. Patient's girlfriend was in the room as well as his support pets. Objective - Vital Signs Vital signs: Vital Signs Temp 98.7 F 02/17/22 08:00 Pulse 79 02/17/22 08:00 Resp 16 02/17/22 08:30 BP 132/85 02/17/22 08:00 Pulse Ox 95 02/17/22 08:00 FiO2 Intake & Output 02/16/22 02/17/22 02/17/22 18:59 06:59 18:59 Intake Total 1080 2490 400 Output Total 2500 700 700 Balance -1420 1790 -300 Intake: Intake, IV Titration 1090 Amount Cefepime 2 gm In Sodium 200 Chloride 0.9% 100 ml @ 25 mls/hr IVPB Q8HR [facility] Rx# :[id number] Sodium Chloride 0.9% 1, 390 000 ml @ 130 mls/hr IV . Q7H42M [facility] Rx#:[id number] Vancomycin 1,250 mg In 500 Sodium Chloride 0.9% 250 ml @ 125 mls/hr IVPB Q8H [facility] Rx#:[id number] Oral 1080 1400 400 Output: Urine 2500 700 700 Other: Voiding Method External Catheter External Catheter - Exam General: non toxic, no distress, appears at stated age, obese Derm: warm, dry Head: atraumatic, normocephalic, symmetric Eyes: EOMI, no lid lag, anicteric sclera Mouth: no lip lesion, mucus membranes moist Cardiovascular: S1S2 reg, no murmur Lungs: CTA bilateral, no rhonchi, no rales , no accessory muscle use Abdominal: soft, nontender to palpation, no guarding, no appreciable organomegaly, ostomy site appears clean Ext: Right foot cellulitis, lower extremity paralysis Neuro: CN II-XI grossly intact, no focal neuro deficits Psych: Alert, oriented, appropriate affect. - Labs CBC & Chem 7: 02/16/22 07:38 02/17/22 11:19 Labs: Abnormal Lab Results - Last 24 Hours (Table) 02/16/22 02/17/22 02/17/22 Range/Units 21:51 11:18 11:19 BUN 6 L (9-20) mg/dL Creatinine 0.52 L (0.66-1.25) mg/dL Glucose 115 H (74-99) mg/dL POC Glucose (mg/dL) 148 H 116 H (70-110) mg/dL Microbiology - Last 24 Hours (Table) 02/14/22 10:40 Gram Stain - Final Foot - Right Wound Culture - Final 02/13/22 22:10 Blood Culture - Preliminary Blood No Growth after 72 hours 02/13/22 21:55 Blood Culture - Preliminary Blood No Growth after 72 hours 02/14/22 16:00 Gram Stain - Preliminary Foot - Right Tissue Culture - Preliminary Escherichia coli Morganella morganii Group D Enterococcus Strep pyogenes (grp a) 02/14/22 10:40 Anaerobic Culture - Final Foot - Right Assessment and Plan Assessment: Assessment sepsis secondary to foot ulcer with cellulitis DM paraplegia with historyof spina bifida hypokalemia anemia , denies GI bleeding plan follow up cultures inititaed on vanco and zosyn tylenol for fever IVF hydration with normal saline Gen surg for wound debridement following pain control with morphine if needed monitor hgb , denies GI bleeding insulin sliding scale for DM Full code DVT PPX heparin sc tid A.m. labs Disposition: Awaiting ID recs for antibiotic regimen to be transitioned to orals
[2022-02-17 17:12] LABS: Glucose,Whole Blood 142 mg/dL (70-110)
[2022-02-17 20:34] LABS: Glucose,Whole Blood 146 mg/dL (70-110)
[2022-02-18] MEDS: SODIUM CHLORIDE 0.9% 1,000 ML IV SCH ×2 (03:57→11:26)
[2022-02-18 07:38] LABS: Glucose,Whole Blood 136 mg/dL (70-110)
[2022-02-18 08:15] VITALS: BP 164/89; PULSE 69; RESP 16; TEMP 98.6
[2022-02-18] MEDS: INSULIN ASPART (NovoLOG) 100 UNIT/ML VIAL SQ SCH ×2 (08:43→11:27)
[2022-02-18 08:52] LABS: Basophils # (A) 0.05 X 10*3/uL (0.00-0.10); Basophils % (A) 0.4 %; Eosinophils # (A) 0.24 X 10*3/uL (0.04-0.35); Eosinophils % (A) 1.9 %; HCT 33.3 % (39.6-50.0); HGB 10.5 g/dL (13.0-17.0); Immature Grans, Automated 0.8 %; Lymphocytes % (A) 16.8 %; MCH 28.2 pg (27.0-32.0); MCHC 31.5 g/dL (32.0-37.0); MCV 89.3 fL (80.0-97.0); Mean Platelet Volume 9.8 fL (9.5-12.2); Monocytes # (A) 0.68 X 10*3/uL (0.20-1.00); Monocytes % (A) 5.4 %; NRBC Per 100 WBC 0 /100 WBCS (0.0-0.0); Neutrophils # (A) 9.32 X 10*3/uL (1.80-7.70); Neutrophils % (A) 74.7 %; Platelet Count 326 X 10*3/uL (140-440); RBC 3.73 X 10*6/uL (4.40-5.60); RDW 12.7 % (11.5-14.5); WBC 12.49 X 10*3/uL (4.50-10.00)
[2022-02-18] MEDS: HEPARIN SODIUM,PORCINE/PF 5,000 UNIT/0.5 ML SYRINGE SQ SCH ×2 (09:00→16:06)
[2022-02-18] MEDS: CEFEPIME 2 GM in SODIUM CHLORIDE 0.9% 100 ML IVPB SCH ×2 (09:01→16:06)
[2022-02-18 09:10] LABS: African American GFR (CKD) 157.5 (60.0-200.0); Albumin 2.9 g/dL (3.8-4.9); Albumin/Globulin Ratio 0.71 (1.60-3.17); Anion Gap 9.7 mmol/L (10.00-18.00); BUN/Creat Ratio 12.83 Ratio (12.00-20.00); Blood Urea Nitrogen 7.7 mg/dL (9.0-27.0); Calcium 8.3 mg/dL (8.7-10.3); Carbon Dioxide 25.3 mmol/L (20.0-27.5); Globulin 4.1 g/dL (1.6-3.3); Non-African American GFR(CKD) 135.9 (60.0-200.0); Potassium 3.9 mmol/L (3.5-5.5); Total Bilirubin 0.4 mg/dL (0.30-1.20)
[2022-02-18 11:15] LABS: Glucose,Whole Blood 118 mg/dL (70-110)
[2022-02-18] MEDS: VANCOMYCIN 1,250 MG in SODIUM CHLORIDE 0.9% 250 ML IVPB SCH (12:17)
--- NOTE | 2022-02-18 14:52 | P.PN ---
Subjective Progress Note Date: 02/18/22 CHIEF COMPLAINT: Sacral decubitus ulcer and right heel ulcer HISTORY OF PRESENT ILLNESS: Surgical service following in regards to patient's sacral decubitus ulcer. Patient reports his pain is controlled. Culture did grow E. coli and Proteus mirabilis. Afebrile. WBC is 12.49 Hgb 10.5 platelets 326 sodium is 138 potassium 3.9 creatinine 0.6 Patient seen and examined with Dr. abbasi PHYSICAL EXAM: VITAL SIGNS: Reviewed. GENERAL: Well-developed in no acute distress. HEENT: No sclera icterus. Extraocular movements grossly intact. Moist buccal mucosa. Head is atraumatic, normocephalic. ABDOMEN: Soft. Nondistended. Nontender. Patient does have evidence of a parastomal hernia and stoma is recessed. There is stool present. He does have appendicostomy on the right side of the abdomen NEUROLOGIC: Alert and oriented. Cranial nerves II through XII grossly intact. Skin: Large sacral decubitus ulcer ASSESSMENT: 1. Sacral decubitus ulcer 2. Right heel ulcer status post debridement by vascular surgical service 3. Parastomal hernia 4. Diabetes mellitus 5. Paraplegic with history of spina bifida PLAN: -No surgical intervention planned for the sacral decubitus ulcer. -Continue local wound care -Dr. Abbasi did recommended revision of the parastomal hernia. Dr. abbasi did discuss with the patient that a revision would be beneficial because it would prevent possible bowel obstruction at the hernia site as well as the practicality of better quality of life and better hygiene. Patient continues to decline any surgical intervention on the parastomal hernia. -Continue supportive care -Continue antibiotics per ID service Physician Cardiovascular Surgical Tech note has been reviewed by physician. Signing provider agrees with the documented findings, assessment, and plan of care. Objective - Vital Signs Vital signs: Vital Signs Temp 98.6 F 02/18/22 08:00 Pulse 69 02/18/22 08:00 Resp 16 02/18/22 08:00 BP 164/89 02/18/22 08:00 Pulse Ox 96 02/18/22 08:00 FiO2 Intake & Output 02/17/22 02/18/22 02/18/22 18:59 06:59 18:59 Intake Total 750 2090 Output Total 1600 1750 Balance -850 340 Intake: Intake, IV Titration 650 Amount Cefepime 2 gm In Sodium 100 Chloride 0.9% 100 ml @ 25 mls/hr IVPB Q8HR [facility] Rx# :[id number] Sodium Chloride 0.9% 1, 300 000 ml @ 130 mls/hr IV . Q7H42M [facility] Rx#:[id number] Vancomycin 1,250 mg In 250 Sodium Chloride 0.9% 250 ml @ 125 mls/hr IVPB Q12H [facility] Rx#:[id number] Oral 750 1440 Output: Urine 1600 1600 Stool 150 Other: Voiding Method External Catheter External Catheter External Catheter - Labs CBC & Chem 7: 02/18/22 06:31 02/18/22 06:31 Labs: Abnormal Lab Results - Last 24 Hours (Table) 02/17/22 02/17/22 02/18/22 Range/Units 17:10 20:31 06:31 WBC 12.49 H (4.50-10.00) X 10*3/uL RBC 3.73 L (4.40-5.60) X 10*6/uL Hgb 10.5 L (13.0-17.0) g/dL Hct 33.3 L (39.6-50.0) % MCHC 31.5 L (32.0-37.0) g/dL Immature Gran # 0.10 H (0.00-0.04) X 10*3/uL Neutrophils # 9.32 H (1.80-7.70) X 10*3/uL Anion Gap (10.00-18.00) mmol/L BUN (9.0-27.0) mg/dL Glucose (70-110) mg/dL POC Glucose (mg/dL) 142 H 146 H (70-110) mg/dL Calcium (8.7-10.3) mg/dL Albumin (3.8-4.9) g/dL Globulin (1.6-3.3) g/dL Albumin/Globulin Ratio (1.60-3.17) g/dL 02/18/22 02/18/22 02/18/22 Range/Units 06:31 07:36 11:15 WBC (4.50-10.00) X 10*3/uL RBC (4.40-5.60) X 10*6/uL Hgb (13.0-17.0) g/dL Hct (39.6-50.0) % MCHC (32.0-37.0) g/dL Immature Gran # (0.00-0.04) X 10*3/uL Neutrophils # (1.80-7.70) X 10*3/uL Anion Gap 9.70 L (10.00-18.00) mmol/L BUN 7.7 L (9.0-27.0) mg/dL Glucose 130 H (70-110) mg/dL POC Glucose (mg/dL) 136 H 118 H (70-110) mg/dL Calcium 8.3 L (8.7-10.3) mg/dL Albumin 2.9 L (3.8-4.9) g/dL Globulin 4.1 H (1.6-3.3) g/dL Albumin/Globulin Ratio 0.71 L (1.60-3.17) g/dL Microbiology - Last 24 Hours (Table) 02/14/22 00:40 Gram Stain - Final Foot - Right Wound Culture - Final 02/13/22 22:10 Blood Culture - Preliminary Blood No Growth after 96 hours 02/13/22 21:55 Blood Culture - Preliminary Blood No Growth after 96 hours
--- NOTE | 2022-02-18 15:09 | P.PN ---
Subjective Patient seen and examined at bedside. Patient denies chest pain shortness of breath nausea vomiting fevers or chills. Patient will be discharged today. Objective - Vital Signs Vital signs: Vital Signs Temp 98.6 F 02/18/22 08:00 Pulse 69 02/18/22 08:00 Resp 16 02/18/22 08:00 BP 164/89 02/18/22 08:00 Pulse Ox 96 02/18/22 08:00 FiO2 Intake & Output 02/17/22 02/18/22 02/18/22 18:59 06:59 18:59 Intake Total 750 2090 Output Total 1600 1750 Balance -850 340 Intake: Intake, IV Titration 650 Amount Cefepime 2 gm In Sodium 100 Chloride 0.9% 100 ml @ 25 mls/hr IVPB Q8HR [facility] Rx# :[id number] Sodium Chloride 0.9% 1, 300 000 ml @ 130 mls/hr IV . Q7H42M [facility] Rx#:[id number] Vancomycin 1,250 mg In 250 Sodium Chloride 0.9% 250 ml @ 125 mls/hr IVPB Q12H [facility] Rx#:[id number] Oral 750 1440 Output: Urine 1600 1600 Stool 150 Other: Voiding Method External Catheter External Catheter External Catheter - Exam General: non toxic, no distress, appears at stated age, obese Derm: warm, dry Head: atraumatic, normocephalic, symmetric Eyes: EOMI, no lid lag, anicteric sclera Mouth: no lip lesion, mucus membranes moist Cardiovascular: S1S2 reg, no murmur Lungs: CTA bilateral, no rhonchi, no rales , no accessory muscle use Abdominal: soft, nontender to palpation, no guarding, no appreciable organomegaly, ostomy site appears clean Ext: Right foot cellulitis, lower extremity paralysis Neuro: CN II-XI grossly intact, no focal neuro deficits Psych: Alert, oriented, appropriate affect - Labs CBC & Chem 7: 02/18/22 06:31 02/18/22 06:31 Labs: Abnormal Lab Results - Last 24 Hours (Table) 02/17/22 02/17/22 02/18/22 Range/Units 17:10 20:31 06:31 WBC 12.49 H (4.50-10.00) X 10*3/uL RBC 3.73 L (4.40-5.60) X 10*6/uL Hgb 10.5 L (13.0-17.0) g/dL Hct 33.3 L (39.6-50.0) % MCHC 31.5 L (32.0-37.0) g/dL Immature Gran # 0.10 H (0.00-0.04) X 10*3/uL Neutrophils # 9.32 H (1.80-7.70) X 10*3/uL Anion Gap (10.00-18.00) mmol/L BUN (9.0-27.0) mg/dL Glucose (70-110) mg/dL POC Glucose (mg/dL) 142 H 146 H (70-110) mg/dL Calcium (8.7-10.3) mg/dL Albumin (3.8-4.9) g/dL Globulin (1.6-3.3) g/dL Albumin/Globulin Ratio (1.60-3.17) g/dL 02/18/22 02/18/22 02/18/22 Range/Units 06:31 07:36 11:15 WBC (4.50-10.00) X 10*3/uL RBC (4.40-5.60) X 10*6/uL Hgb (13.0-17.0) g/dL Hct (39.6-50.0) % MCHC (32.0-37.0) g/dL Immature Gran # (0.00-0.04) X 10*3/uL Neutrophils # (1.80-7.70) X 10*3/uL Anion Gap 9.70 L (10.00-18.00) mmol/L BUN 7.7 L (9.0-27.0) mg/dL Glucose 130 H (70-110) mg/dL POC Glucose (mg/dL) 136 H 118 H (70-110) mg/dL Calcium 8.3 L (8.7-10.3) mg/dL Albumin 2.9 L (3.8-4.9) g/dL Globulin 4.1 H (1.6-3.3) g/dL Albumin/Globulin Ratio 0.71 L (1.60-3.17) g/dL Microbiology - Last 24 Hours (Table) 02/14/22 00:40 Gram Stain - Final Foot - Right Wound Culture - Final 02/13/22 22:10 Blood Culture - Preliminary Blood No Growth after 96 hours 02/13/22 21:55 Blood Culture - Preliminary Blood No Growth after 96 hours Assessment and Plan Assessment: Admitting diagnosis: Sepsis due to Heel ulcer Discharge diagnosis: Sepsis resolved Heel ulcer status post debridement Wound culture:E. coli, morganella morganii, group D enterococcus, strep biopsies, E. coli, and Proteus mirabilis Diabetes mellitus Paraplegia Anemia of chronic disease Spina bifida Hospital course: 31 year old male with paraplegia 2/2 spina bifida, DM patient was recently hospitalized at [facility] [place] , where he was treated for DKA, and right heel wound, he was discharged on doxycycline and also found to have a buttock pressure ulcer after this hospital course. family was not happy with that, and now have noticed the wound has gotten worse with foul drainage in the buttock area, along with worsening wound over the right heel, with erythema spreading proximally . he seems to have misplaced his antibiotics. and presents today seeking more help with is wounds. he denies any fever or chills, he does not have any pain (however he has history of paraplegia and has lost sensation in his legs.) denies any changes in his bowel habits ( has a diverting colostomy) no GI bleeding, no urinary changes (incontinent to urine ) denies any chest pain or trouble breathing, however does report some runny nose. in the ED , he was spiking a fever, WBC 20s, anemia , and hypokalemia , lactic acid was normal Physical exam General: non toxic, no distress, appears at stated age, obese Derm: warm, dry Head: atraumatic, normocephalic, symmetric Eyes: EOMI, no lid lag, anicteric sclera Mouth: no lip lesion, mucus membranes moist Cardiovascular: S1S2 reg, no murmur Lungs: CTA bilateral, no rhonchi, no rales , no accessory muscle use Abdominal: soft, nontender to palpation, no guarding, no appreciable organomegaly, ostomy site appears clean Ext: Right foot cellulitis, lower extremity paralysis Neuro: CN II-XI grossly intact, no focal neuro deficits Psych: Alert, oriented, appropriate affect. Assessment: sepsis secondary to foot ulcer with cellulitis DM paraplegia with historyof spina bifida hypokalemia anemia , denies GI bleeding plan: Patient will be sent home on oral Augmentin and ciprofloxacin since surgical cultures grew E. coli, morganella morganii, group D enterococcus, strep biopsies, E. coli, and Proteus mirabilis initiated on vanco and zosyn during hospital stay tylenol for fever IVF hydration with normal saline provided Gen surg for wound debridement followed pain control given insulin sliding scale for DM Disposition home with home care Activity as tolerated Diet diabetic Condition fair Up with PCP within one week Follow-up with wound care in 1-2 days Follow-up with home care in 1-2 days Time with Patient: Greater than 30
--- NOTE | 2022-02-18 16:15 | P.PN ---
Subjective Progress Note Date: 02/17/22 Principal diagnosis: Right leg infected wound and cellulitis Patient is a 31-year-old male with a past medical history significant for spina bifida and paraplegia diabetes mellitus presented to the hospital with sepsis secondary to the right foot infected wound and cellulitis and also have a pressure ulcer to the sacral area. On today's evaluation that is 02/17/2022, the patient continues to be afebrile, patient is breathing comfortably on room air. The patient denies having any chest pain shortness of cough no abdominal pain or diarrhea, the patient right lower extremity swelling redness has improved Objective - Vital Signs Vital signs: Vital Signs Temp 98.7 F 02/17/22 08:00 Pulse 79 02/17/22 08:00 Resp 16 02/17/22 08:30 BP 132/85 02/17/22 08:00 Pulse Ox 95 02/17/22 08:00 FiO2 Intake & Output 02/16/22 02/17/22 02/17/22 18:59 06:59 18:59 Intake Total 1080 2490 Output Total 2500 700 700 Balance -1420 1790 -700 Intake: Intake, IV Titration 1090 Amount Cefepime 2 gm In Sodium 200 Chloride 0.9% 100 ml @ 25 mls/hr IVPB Q8HR [facility] Rx# :[id number] Sodium Chloride 0.9% 1, 390 000 ml @ 130 mls/hr IV . Q7H42M [facility] Rx#:[id number] Vancomycin 1,250 mg In 500 Sodium Chloride 0.9% 250 ml @ 125 mls/hr IVPB Q8H [facility] Rx#:[id number] Oral 1080 1400 Output: Urine 2500 700 700 Other: Voiding Method External Catheter External Catheter - Exam GENERAL DESCRIPTION: Young male lying in bed in no distress RESPIRATORY SYSTEM: Unlabored breathing , decreased breath sounds at bases HEART: S1 S2 regular rate and rhythm , ABDOMEN: Soft , no tenderness EXTREMITIES: Right foot wound is currently dressed right leg swelling redness has decreased - Labs CBC & Chem 7: 02/18/22 06:31 02/18/22 06:31 Labs: Abnormal Lab Results - Last 24 Hours (Table) 02/16/22 02/17/22 02/17/22 Range/Units 21:51 11:18 11:19 BUN 6 L (9-20) mg/dL Creatinine 0.52 L (0.66-1.25) mg/dL Glucose 115 H (74-99) mg/dL POC Glucose (mg/dL) 148 H 116 H (70-110) mg/dL Microbiology - Last 24 Hours (Table) 02/14/22 10:40 Gram Stain - Final Foot - Right Wound Culture - Final 02/13/22 22:10 Blood Culture - Preliminary Blood No Growth after 72 hours 02/13/22 21:55 Blood Culture - Preliminary Blood No Growth after 72 hours 02/14/22 16:00 Gram Stain - Preliminary Foot - Right Tissue Culture - Preliminary Escherichia coli Morganella morganii Group D Enterococcus Strep pyogenes (grp a) 02/14/22 10:40 Anaerobic Culture - Final Foot - Right Assessment and Plan (1) Cellulitis of right lower extremity Status: Acute Code(s): L03.115 - CELLULITIS OF RIGHT LOWER LIMB SNOMED Code(s): 284718957 (2) Diabetic foot infection Status: Acute Code(s): E11.628 - TYPE 2 DIABETES MELLITUS WITH OTHER SKIN COMPLICATIONS; L08.9 - LOCAL INFECTION OF THE SKIN AND SUBCUTANEOUS TISSUE, UNSP SNOMED Code(s): 654155618 Plan: 1patient presented to hospital with sepsis in this patient with a fever elevated white count source likely right heel infected pressure ulcer with secondary cellulitis and likely from gram-positive skin dimitri failing outpatient oral doxycycline therapy. 2 deep culture has been obtained which are currently growing E. coli enterococcus strep and staph aureus with sensitivity pending 3patient seemed Clinical Improvement Fever Resolved and the Patient White Count Has Normalized, Patient to continue with vancomycin pharmacy to dose target trough of 15 while watching kidney function and cefepime, we are still waiting for the sensitivity on the staph aureus to determine his discharge antibiotics aren't to contact the micro-lab Time with Patient: Less than 30
--- NOTE | 2022-02-18 16:17 | P.PN ---
Subjective Progress Note Date: 02/18/22 Principal diagnosis: Right leg infected wound and cellulitis Patient is a 31-year-old male with a past medical history significant for spina bifida and paraplegia diabetes mellitus presented to the hospital with sepsis secondary to the right foot infected wound and cellulitis and also have a pressure ulcer to the sacral area. On today's evaluation that is 02/18/2022, the patient denies any fever or any chills, patient is breathing comfortably on room air. The patient denies having any chest pain shortness of cough no abdominal pain , the patient right lower extremity swelling redness has improved, and is no significant drainage no diarrhea with antibiotic therapy Objective - Vital Signs Vital signs: Vital Signs Temp 98.6 F 02/18/22 08:00 Pulse 69 02/18/22 08:00 Resp 16 02/18/22 08:00 BP 164/89 02/18/22 08:00 Pulse Ox 96 02/18/22 08:00 FiO2 Intake & Output 02/17/22 02/18/22 02/18/22 18:59 06:59 18:59 Intake Total 750 2090 Output Total 1600 1750 Balance -850 340 Intake: Intake, IV Titration 650 Amount Cefepime 2 gm In Sodium 100 Chloride 0.9% 100 ml @ 25 mls/hr IVPB Q8HR [facility] Rx# :[id number] Sodium Chloride 0.9% 1, 300 000 ml @ 130 mls/hr IV . Q7H42M [facility] Rx#:[id number] Vancomycin 1,250 mg In 250 Sodium Chloride 0.9% 250 ml @ 125 mls/hr IVPB Q12H [facility] Rx#:[id number] Oral 750 1440 Output: Urine 1600 1600 Stool 150 Other: Voiding Method External Catheter External Catheter External Catheter - Exam GENERAL DESCRIPTION: Young male lying in bed in no distress RESPIRATORY SYSTEM: Unlabored breathing , decreased breath sounds at bases HEART: S1 S2 regular rate and rhythm , ABDOMEN: Soft , no tenderness EXTREMITIES: Right foot wound is currently dressed right leg swelling redness has decreased, and there is no drainage - Labs CBC & Chem 7: 02/18/22 06:31 02/18/22 06:31 Labs: Abnormal Lab Results - Last 24 Hours (Table) 02/17/22 02/17/22 02/17/22 Range/Units 11:18 11:19 17:10 WBC (4.50-10.00) X 10*3/uL RBC (4.40-5.60) X 10*6/uL Hgb (13.0-17.0) g/dL Hct (39.6-50.0) % MCHC (32.0-37.0) g/dL Immature Gran # (0.00-0.04) X 10*3/uL Neutrophils # (1.80-7.70) X 10*3/uL Anion Gap (10.00-18.00) mmol/L BUN 6 L (9-20) mg/dL Creatinine 0.52 L (0.66-1.25) mg/dL Glucose 115 H (74-99) mg/dL POC Glucose (mg/dL) 116 H 142 H (70-110) mg/dL Calcium (8.7-10.3) mg/dL Albumin (3.8-4.9) g/dL Globulin (1.6-3.3) g/dL Albumin/Globulin Ratio (1.60-3.17) g/dL 02/17/22 02/18/22 02/18/22 Range/Units 20:31 06:31 06:31 WBC 12.49 H (4.50-10.00) X 10*3/uL RBC 3.73 L (4.40-5.60) X 10*6/uL Hgb 10.5 L (13.0-17.0) g/dL Hct 33.3 L (39.6-50.0) % MCHC 31.5 L (32.0-37.0) g/dL Immature Gran # 0.10 H (0.00-0.04) X 10*3/uL Neutrophils # 9.32 H (1.80-7.70) X 10*3/uL Anion Gap 9.70 L (10.00-18.00) mmol/L BUN 7.7 L (9-20) mg/dL Creatinine (0.66-1.25) mg/dL Glucose 130 H (74-99) mg/dL POC Glucose (mg/dL) 146 H (70-110) mg/dL Calcium 8.3 L (8.7-10.3) mg/dL Albumin 2.9 L (3.8-4.9) g/dL Globulin 4.1 H (1.6-3.3) g/dL Albumin/Globulin Ratio 0.71 L (1.60-3.17) g/dL 02/18/22 Range/Units 07:36 WBC (4.50-10.00) X 10*3/uL RBC (4.40-5.60) X 10*6/uL Hgb (13.0-17.0) g/dL Hct (39.6-50.0) % MCHC (32.0-37.0) g/dL Immature Gran # (0.00-0.04) X 10*3/uL Neutrophils # (1.80-7.70) X 10*3/uL Anion Gap (10.00-18.00) mmol/L BUN (9-20) mg/dL Creatinine (0.66-1.25) mg/dL Glucose (74-99) mg/dL POC Glucose (mg/dL) 136 H (70-110) mg/dL Calcium (8.7-10.3) mg/dL Albumin (3.8-4.9) g/dL Globulin (1.6-3.3) g/dL Albumin/Globulin Ratio (1.60-3.17) g/dL Microbiology - Last 24 Hours (Table) 02/13/22 22:10 Blood Culture - Preliminary Blood No Growth after 96 hours 02/13/22 21:55 Blood Culture - Preliminary Blood No Growth after 96 hours 02/14/22 10:40 Gram Stain - Final Foot - Right Wound Culture - Final Assessment and Plan (1) Cellulitis of right lower extremity Status: Acute Code(s): L03.115 - CELLULITIS OF RIGHT LOWER LIMB SNOMED Code(s): 710883922 (2) Diabetic foot infection Status: Acute Code(s): E11.628 - TYPE 2 DIABETES MELLITUS WITH OTHER SKIN COMPLICATIONS; L08.9 - LOCAL INFECTION OF THE SKIN AND SUBCUTANEOUS TISSUE, UNSP SNOMED Code(s): 797031917 Plan: 1patient presented to hospital with sepsis in this patient with a fever elevated white count source likely right heel infected pressure ulcer with secondary cellulitis and likely from gram-positive skin dimitri failing outpatient oral doxycycline therapy. 2 deep culture has been obtained which are currently growing E. coli enterococcus strep and staph aureus with sensitivity pending 3patient seemed Clinical Improvement Fever Resolved and the Patient White Count Has Normalized, unfortunately the staph aureus that was seen in the culture seem to have disappeared from the results now we will plan on sending the patient home on Augmentin and Cipro and advised to follow the wound care center next week prescription was sent to the pharmacy Time with Patient: Less than 30
== END 2022-02-18 16:03 | disposition home health service (06) | DRG 853 ==
LOC: EDBD → EC 19:49 → 4SSUR 23:21
PROVIDERS: ADMIT Internal Medicine; ATTEND Internal Medicine
PROC: 0JBR0ZZ Excision of Left Foot Subcutaneous Tissue and Fascia, Open Approach (ICD-10-PCS; principal; 2022-02-14)
DX: A41.51 Sepsis due to Escherichia coli [E. coli] (principal); L89.154 Pressure ulcer of sacral region, stage 4; L89.613 Pressure ulcer of right heel, stage 3; G82.20 Paraplegia, unspecified; Q05.4 Unspecified spina bifida with hydrocephalus; L03.115 Cellulitis of right lower limb; Z68.41 Body mass index [BMI] 40.0-44.9, adult; E11.621 Type 2 diabetes mellitus with foot ulcer; E11.628 Type 2 diabetes mellitus with other skin complications; D63.8 Anemia in other chronic diseases classified elsewhere; L89.612 Pressure ulcer of right heel, stage 2; E66.9 Obesity, unspecified; I10 Essential (primary) hypertension; L89.309 Pressure ulcer of unspecified buttock, unspecified stage; L97.519 Non-pressure chronic ulcer of other part of right foot with unspecified severity; Q66.89 Other specified congenital deformities of feet; E87.6 Hypokalemia; I45.10 Unspecified right bundle-branch block; B96.4 Proteus (mirabilis) (morganii) as the cause of diseases classified elsewhere; E87.5 Hyperkalemia; K43.5 Parastomal hernia without obstruction or gangrene; B95.2 Enterococcus as the cause of diseases classified elsewhere; Z28.310 Unvaccinated for COVID-19; Z79.899 Other long term (current) drug therapy; Z79.84 Long term (current) use of oral hypoglycemic drugs; Z79.4 Long term (current) use of insulin; Z88.0 Allergy status to penicillin; Z86.14 Personal history of Methicillin resistant Staphylococcus aureus infection; Z93.3 Colostomy status; Z99.3 Dependence on wheelchair
CPT/HCPCS: 36415; 80048; 80053; 80202; 83605; 85025; 85610; 85730; 87040; 87070; 87075; 87077; 87186; 87205; 93005; 96361; 96365; 99284

== ENCOUNTER 2023-01-18 02:48 | Emergency (ER) | payer OTHER ==
[2023-01-18] MEDS ORDERED: PANTOPRAZOLE 40 MG/10 ML VIAL IVP STA (06:11)
[2023-01-18] MEDS ORDERED: ONDANSETRON 4 MG/2 ML VIAL IVP STA (06:11)
[2023-01-18] MEDS ORDERED: HYDROmorphone 1 MG/ML 1 ML SYRINGE IVP STA (06:11)
[2023-01-18] MEDS ORDERED: SODIUM CHLORIDE 0.9% 1,000 ML IV STA ×2 (06:11)
--- NOTE | 2023-01-18 06:14 | ED ---
Abdominal Pain HPI - General Source: family, RN notes reviewed, old records reviewed Mode of arrival: wheelchair Limitations: no limitations - History of Present Illness MD Complaint: abdominal pain, flank pain -: days(s) Location: epigastric, suprapubic, L flank, R flank, bilateral flank Radiation: bilateral flank Migration to: suprapubic Severity: moderate Severity scale (1-10): 7 Quality: cramping, stabbing Consistency: constant Improves With: nothing Worsens With: nothing Associated Symptoms: nausea, vomiting Treatments Prior to Arrival: other (0) <Lamin Hogue - Last Filed: 01/18/23 06:12> <Marquis Whipple - Last Filed: 01/18/23 09:34> - General Chief Complaint: Abdominal Pain Stated Complaint: Abd pain Time Seen by Provider: 01/18/23 05:50 - History of Present Illness Initial Comments: This is a 32-year-old male DF for evaluation today. Patient Dese for evaluation bowel pain severe abdominal pain passed kidney stone 2 days ago and did have fo ot surgery yesterday for laceration. Patient presents today with severe abdominal pain difficulty with urination. All does appear to be moving appropriately. Patient is a long complex medical history evolving from spina bifida (Lamin Hogue) - Related Data Home Medications Medication Instructions Recorded Confirmed Atorvastatin [Lipitor] 40 mg PO DAILY 02/14/22 02/14/22 Ergocalciferol [Vitamin D2 (1250 1,250 mcg PO Q7D 02/14/22 02/14/22 Mcg = 93516 Iu)] Ferrous Sulfate [Iron (65 MG 325 mg PO DAILY 02/14/22 02/14/22 Elemental)] Glimepiride [Amaryl] 2 mg PO DAILY 02/14/22 02/14/22 Insulin Degludec [Tresiba 10 units SQ DAILY 02/14/22 02/14/22 Flextouch U-100 Pen] Metoprolol Succinate (ER) [Toprol 25 mg PO DAILY 02/14/22 02/14/22 XL] Semaglutide [Rybelsus] 3 mg PO DAILY 02/14/22 02/14/22 lisinopriL [Zestril] 20 mg PO DAILY 10/03/22 10/03/22 metFORMIN HCL [Glucophage] 1,000 mg PO BID 02/14/22 02/14/22 Previous Rx's Medication Instructions Recorded Amoxic-Pot Clav 875-125Mg 1 tab PO Q12HR 14 Days #28 tab 02/18/22 [Augmentin 875-125] Ciprofloxacin HCl [Cipro] 500 mg PO Q12HR 14 Days #28 tab 02/18/22 Cephalexin [Keflex] 500 mg PO Q6HR 10 Days #40 cap 01/18/23 Allergies Allergy/AdvReac Type Severity Reaction Status Date / Time No Known Allergies Allergy Verified 01/18/23 02:54 Review of Systems ROS Other: All systems not noted in ROS Statement are negative. <Lamin Hogue - Last Filed: 01/18/23 06:12> ROS Other: All systems not noted in ROS Statement are negative. <Marquis Whipple - Last Filed: 01/18/23 09:34> ROS Statement: Those systems with pertinent positive or pertinent negative responses have been documented in the HPI. Past Medical History Past Medical History: Diabetes Mellitus Additional Past Medical History / Comment(s): club foot, spinal fibida, hydrocephalus, incontinent History of Any Multi-Drug Resistant Organisms: MRSA Date of last positivie culture/infection: 2015 MDRO Source:: buttocks Past Surgical History: Back Surgery, Joint Replacement Additional Past Surgical History / Comment(s): shunt , left hip, colostomy Past Anesthesia/Blood Transfusion Reactions: No Reported Reaction Past Psychological History: No Psychological Hx Reported Smoking Status: Vaper Past Alcohol Use History: None Reported Past Drug Use History: Marijuana - Past Family History Mother Family Medical History: Blood Disorder Additional Family Medical History / Comment(s): Mother is living and currently age 42. States receives blood transfusions Father History Unknown: Yes Additional Family Medical History / Comment(s): Father at age 50 from unknown cause family Additional Family Medical History / Comment(s): no report of CAD <Lamin Hogue - Last Filed: 01/18/23 06:12> General Exam Limitations: no limitations General appearance: alert, in no apparent distress Head exam: Present: atraumatic, normocephalic, normal inspection Eye exam: Present: normal appearance, PERRL, EOMI. Absent: scleral icterus, conjunctival injection, periorbital swelling ENT exam: Present: normal exam, mucous membranes moist Neck exam: Present: normal inspection. Absent: tenderness, meningismus, lymphadenopathy Respiratory exam: Present: normal lung sounds bilaterally. Absent: respiratory distress, wheezes, rales, rhonchi, stridor Cardiovascular Exam: Present: regular rate, normal rhythm, normal heart sounds. Absent: systolic murmur, diastolic murmur, rubs, gallop, clicks GI/Abdominal exam: Present: soft, normal bowel sounds. Absent: distended, tenderness, guarding, rebound, rigid Extremities exam: Present: normal inspection, full ROM, normal capillary refill. Absent: tenderness, pedal edema, joint swelling, calf tenderness Back exam: Present: normal inspection Neurological exam: Present: alert, oriented X3, CN II-XII intact Psychiatric exam: Present: normal affect, normal mood Skin exam: Present: warm, dry, intact, normal color. Absent: rash <Lamin Hogue - Last Filed: 01/18/23 06:12> Course <Lamin Hogue - Last Filed: 01/18/23 06:12> Vital Signs 01/18/23 01/18/23 02:52 06:45 Temperature 97.9 F Pulse Rate 118 H 114 H Respiratory 20 18 Rate Blood Pressure 142/76 127/80 O2 Sat by Pulse 96 94 L Oximetry - Reevaluation(s) Reevaluation #1: 01/18/23 06:14 Medical record is reviewed (Lamin Hogue) Reevaluation #2: 01/18/23 06:14 Patient symptoms are improved (Lamin Hogue) Reevaluation #4: 01/18/23 06:14 Was pt. sent in by a medical professional or institution (, PA, HAZARDOUS WASTE MATERIAL TECHNICIAN, urgent care, hospital, or fpc...) When possible be specific @ -no Did you speak to anyone other than the patient for history (EMS, parent, family, police, friend...)? What history was obtained from this source @ -no Did you review nursing and triage notes (agree or disagree)? Why? @ -agree Are old charts reviewed (outside hosp., previous admission, EMS record, old EKG, old radiological studies, urgent care reports/EKG's, fpc records)? Report findings @ -yes Differential Diagnosis (chest pain, altered mental status, abdominal pain women, abdominal pain men, vaginal bleeding, weakness, fever, dyspnea, syncope, headache, dizziness, GI bleed, back pain, seizure, CVA, palpatations, mental health, musculoskeletal)? @ -prior EKG interpreted by me (3pts min.). @ -yes X-rays interpreted by me (1pt min.). @ -yes CT interpreted by me (1pt min.). @ -no U/S interpreted by me (1pt. min.). @ -no What testing was considered but not performed or refused? (CT, X-rays, U/S, labs)? Why? @ -none What meds were considered but not given or refused? Why? @ -none Did you discuss the management of the patient with other professionals (professionals i.e. , PA, HAZARDOUS WASTE MATERIAL TECHNICIAN, lab, RT, psych nurse, mental health social worker, bottle dealer, teacher, major gifts officer, oil field caser)? Give summary @ -no Was smoking cessation discussed for >3mins.? @ -no Was critical care preformed (if so, how long)? @ -no Were there social determinants of health that impacted care today? How? (Homelessness, low income, unemployed, alcoholism, drug addiction, transportation, low edu. Level, literacy, decrease access to med. care, detention, rehab)? @ -none Was there de-escalation of care discussed even if they declined (Discuss DNR or withdrawal of care, Hospice)? DNR status @ -no What co-morbidities impacted this encounter? (DM, HTN, Smoking, COPD, CAD, Cancer, CVA, ARF, Chemo, Hep., AIDS, mental health diagnosis, sleep apnea, morbid obesity)? @ -none Was patient admitted / discharged? Hospital course, mention meds given and route, prescriptions, significant lab abnormalities, going to OR and other pertinent info. @ - Undiagnosed new problem with uncertain prognosis? @ -no Drug Therapy requiring intensive monitoring for toxicity (Heparin, Nitro, Insulin, Cardizem)? @ -no Were any procedures done? @ -no Diagnosis/symptom? @ - Acute, or Chronic, or Acute on Chronic? @ -Acute Uncomplicated (without systemic symptoms) or Complicated (systemic symptoms)? @ -Complicated Side effects of treatment? @ -no Exacerbation, Progression, or Severe Exacerbation? @ -exacerbation Poses a threat to life or bodily function? How? (Chest pain, USA, CO, pneumonia, PE, COPD, DKA, ARF, appy, cholecystitis, CVA, Diverticulitis, Homicidal, Suicidal, threat to staff... and all critical care pts) @ -yes (Lamin Hogue) Reevaluation #5: 01/18/23 06:14 Differential Abdominal Pain Women: Appendicitis, Cholecystitis, diverticulosis, ischemic bowel, pancreatitis, hepatitis, UTI, gastroenteritis, AAA, incarcerated hernia, bowel obstruction, constipation, inflammatory bowel, hepatitis, peptic ulcer disease, splenic infarction, perforated viscus, vulvitis, ovarian torsion, PID, kidney stone, placenta abruption, this is not meant to be an all-inclusive list (Lamin Rios) Medical Decision Making - Lab Data Result diagrams: 01/18/23 06:40 01/18/23 06:40 <Marquis Whipple - Last Filed: 01/18/23 09:34> - Medical Decision Making Was pt. sent in by a medical professional or institution (, PA, HAZARDOUS WASTE MATERIAL TECHNICIAN, urgent care, hospital, or fpc...) When possible be specific @ -No Did you speak to anyone other than the patient for history (EMS, parent, family, police, friend...)? What history was obtained from this source @ -No Did you review nursing and triage notes (agree or disagree)? Why? @ -I reviewed and agree with nursing and triage notes Were old charts reviewed (outside hosp., previous admission, EMS record, old EKG, old radiological studies, urgent care reports/EKG's, fpc records)? Report findings @ -No old charts were reviewed Differential Diagnosis (chest pain, altered mental status, abdominal pain women, abdominal pain men, vaginal bleeding, weakness, fever, dyspnea, syncope, headache, dizziness, GI bleed, back pain, seizure, CVA, palpatations, mental health, musculoskeletal)? @ -Differential Abdominal Pain Men: Appendicitis, cholecystitis, diverticulosis, ischemic bowel, pancreatitis, hepa titis, UTI, gastroenteritis, AAA, incarcerated hernia, bowel obstruction, constipation, inflammatory bowel, hepatitis, peptic ulcer disease, splenic infarction, perforated viscus, testicular torsion, this is not meant to be an all-inclusive list EKG interpreted by me (3pts min.). @ -As above X-rays interpreted by me (1pt min.). @ -None done CT interpreted by me (1pt min.). @ -None done U/S interpreted by me (1pt. min.). @ -None done What testing was considered but not performed or refused? (CT, X-rays, U/S, labs)? Why? @ -None What meds were considered but not given or refused? Why? @ -None Did you discuss the management of the patient with other professionals (professionals i.e. , PA, HAZARDOUS WASTE MATERIAL TECHNICIAN, lab, RT, psych nurse, mental health social worker, bottle dealer, teacher, major gifts officer, oil field caser)? Give summary @ -No Was smoking cessation discussed for >3mins.? @ -No Was critical care preformed (if so, how long)? @ -No Were there social determinants of health that impacted care today? How? (Homelessness, low income, unemployed, alcoholism, drug addiction, transportation, low edu. Level, literacy, decrease access to med. care, detention, rehab)? @ -No Was there de-escalation of care discussed even if they declined (Discuss DNR or withdrawal of care, Hospice)? DNR status @ -No What co-morbidities impacted this encounter? (DM, HTN, Smoking, COPD, CAD, Cancer, CVA, ARF, Chemo, Hep., AIDS, mental health diagnosis, sleep apnea, morbid obesity)? @ -Spina bifida Was patient admitted / discharged? Hospital course, mention meds given and route, prescriptions, significant lab abnormalities, going to OR and other pertinent info. @ -Patient's care is signed out at shift change awaiting CT imaging. CT does show distention of the urinary bladder with bilateral hydronephrosis and consultation within the bladder. Dai catheter is placed. Patient has a mild leukocytosis, otherwise normal laboratory testing. I did discuss patient's sacral decubitus ulcer which is noted on CT the patient states she's had this for some time and has followed with wound care. I did recommend that he return to wound care for further evaluation and management. Patient also does not have an ostomy supplies but states that none of the ostomy supplies he's used in the past at work and he states that this is not an issue for him. He states he is scheduled for custom wheelchair and states that he believes this will help with his decubitus ulcer. Undiagnosed new problem with uncertain prognosis? @ -No Drug Therapy requiring intensive monitoring for toxicity (Heparin, Nitro, Insulin, Cardizem)? @ -No Were any procedures done? @ -No Diagnosis/symptom? @Abdominal pain Acute, or Chronic, or Acute on Chronic? @ -[Acute Uncomplicated (without systemic symptoms) or Complicated (systemic symptoms)? @ -Complicated Side effects of treatment? @ -No Exacerbation, Progression, or Severe Exacerbation? @ -No Poses a threat to life or bodily function? How? (Chest pain, USA, CO, pneumonia, PE, COPD, DKA, ARF, appy, cholecystitis, CVA, Diverticulitis, Homicidal, Suicidal, threat to staff... and all critical care pts) @ -[Low risk at this time (Marquis Whipple) - Lab Data Lab Results 01/18/23 01/18/23 01/18/23 Range/Units 06:40 06:40 06:40 WBC 13.6 H (3.8-10.6) k/uL RBC 4.78 (4.30-5.90) m/uL Hgb 13.3 (13.0-17.5) gm/dL Hct 40.1 (39.0-53.0) % MCV 83.7 (80.0-100.0) fL MCH 27.8 (25.0-35.0) pg MCHC 33.1 (31.0-37.0) g/dL RDW 13.8 (11.5-15.5) % Plt Count 417 (150-450) k/uL MPV 7.7 Neutrophils % 81 % Lymphocytes % 13 % Monocytes % 4 % Eosinophils % 0 % Basophils % 0 % Neutrophils # 11.0 H (1.3-7.7) k/uL Lymphocytes # 1.8 (1.0-4.8) k/uL Monocytes # 0.6 (0-1.0) k/uL Eosinophils # 0.0 (0-0.7) k/uL Basophils # 0.0 (0-0.2) k/uL Sodium 138 (137-145) mmol/L Potassium 5.3 H (3.5-5.1) mmol/L Chloride 106 (98-107) mmol/L Carbon Dioxide 20 L (22-30) mmol/L Anion Gap 12 mmol/L BUN 17 (9-20) mg/dL Creatinine 0.72 (0.66-1.25) mg/dL Est GFR (CKD-EPI)AfAm >90 (>60 ml/min/1.73 sqM) Est GFR (CKD-EPI)NonAf >90 (>60 ml/min/1.73 sqM) Glucose 178 H (74-99) mg/dL Plasma Lactic Acid Moises 1.6 (0.7-2.0) mmol/L Calcium 9.6 (8.4-10.2) mg/dL Total Bilirubin 0.9 (0.2-1.3) mg/dL AST 48 (17-59) U/L ALT 49 (4-49) U/L Alkaline Phosphatase 61 (38-126) U/L Total Protein 9.1 H (6.3-8.2) g/dL Albumin 4.1 (3.5-5.0) g/dL Amylase 56 (30-110) U/L Lipase 94 (23-300) U/L Urine Color Urine Appearance (Clear) Urine pH (5.0-8.0) Ur Specific [place] (1.001-1.035) Urine Protein (Negative) Urine Glucose (UA) (Negative) Urine Ketones (Negative) Urine Blood (Negative) Urine Nitrite (Negative) Urine Bilirubin (Negative) Urine Urobilinogen (<2.0) mg/dL Ur Leukocyte Esterase (Negative) Urine RBC (0-5) /hpf Urine WBC (0-5) /hpf Urine WBC Clumps (None) /hpf Ur Squamous Epith Cells (0-4) /hpf Urine Mucus (None) /hpf 01/18/23 Range/Units 09:18 WBC (3.8-10.6) k/uL RBC (4.30-5.90) m/uL Hgb (13.0-17.5) gm/dL Hct (39.0-53.0) % MCV (80.0-100.0) fL MCH (25.0-35.0) pg MCHC (31.0-37.0) g/dL RDW (11.5-15.5) % Plt Count (150-450) k/uL MPV Neutrophils % % Lymphocytes % % Monocytes % % Eosinophils % % Basophils % % Neutrophils # (1.3-7.7) k/uL Lymphocytes # (1.0-4.8) k/uL Monocytes # (0-1.0) k/uL Eosinophils # (0-0.7) k/uL Basophils # (0-0.2) k/uL Sodium (137-145) mmol/L Potassium (3.5-5.1) mmol/L Chloride (98-107) mmol/L Carbon Dioxide (22-30) mmol/L Anion Gap mmol/L BUN (9-20) mg/dL Creatinine (0.66-1.25) mg/dL Est GFR (CKD-EPI)AfAm (>60 ml/min/1.73 sqM) Est GFR (CKD-EPI)NonAf (>60 ml/min/1.73 sqM) Glucose (74-99) mg/dL Plasma Lactic Acid Moises (0.7-2.0) mmol/L Calcium (8.4-10.2) mg/dL Total Bilirubin (0.2-1.3) mg/dL AST (17-59) U/L ALT (4-49) U/L Alkaline Phosphatase (38-126) U/L Total Protein (6.3-8.2) g/dL Albumin (3.5-5.0) g/dL Amylase (30-110) U/L Lipase (23-300) U/L Urine Color Yellow Urine Appearance Turbid (Clear) Urine pH 7.5 (5.0-8.0) Ur Specific [place] 1.020 (1.001-1.035) Urine Protein 2+ H (Negative) Urine Glucose (UA) Negative (Negative) Urine Ketones Negative (Negative) Urine Blood Large H (Negative) Urine Nitrite Negative (Negative) Urine Bilirubin Negative (Negative) Urine Urobilinogen <2.0 (<2.0) mg/dL Ur Leukocyte Esterase Large H (Negative) Urine RBC >182 H (0-5) /hpf Urine WBC >182 H (0-5) /hpf Urine WBC Clumps Many H (None) /hpf Ur Squamous Epith Cells 1 (0-4) /hpf Urine Mucus Occasional H (None) /hpf Disposition <Lamin Hogue - Last Filed: 01/18/23 06:12> Is patient prescribed a controlled substance at d/c from ED?: No Time of Disposition: 09:32 <AracelizanaMarquis bobby - Last Filed: 01/18/23 09:34> Clinical Impression: Pressure ulcer of sacral region, stage 4, Abdominal pain Disposition: HOME SELF-CARE Condition: Fair Instructions (If sedation given, give patient instructions): Abdominal Pain (ED), Urinary Tract Infection in Men (ED), Urinary Retention in Men (ED) Prescriptions: Cephalexin [Keflex] 500 mg PO Q6HR 10 Days #40 cap Referrals: Jannette Sam MD [Primary Care Provider] - 1-2 days [facility] [NON-STAFF] - 1-2 days Aman Fields MD [STAFF PHYSICIAN] - 1-2 days
[2023-01-18 06:57] LABS: Basophils % (A) 0 %; Eosinophils % (A) 0 %; HCT 40.1 % (39.0-53.0); HGB 13.3 gm/dL (13.0-17.5); Lymphocytes # (A) 1.8 k/uL (1.0-4.8); Lymphocytes % (A) 13 %; MCH 27.8 pg (25.0-35.0); MCHC 33.1 g/dL (31.0-37.0); MCV 83.7 fL (80.0-100.0); Mean Platelet Volume 7.7; Monocytes # (A) 0.6 k/uL (0-1.0); Monocytes % (A) 4 %; Neutrophils % (A) 81 %; Platelet Count 417 k/uL (150-450); RBC 4.78 m/uL (4.30-5.90); RDW 13.8 % (11.5-15.5); WBC 13.6 k/uL (3.8-10.6)
[2023-01-18 07:19] LABS: ALT 49 U/L (4-49); African American GFR (CKD) >90 (>60 ml/min/1.73 sqM); Albumin 4.1 g/dL (3.5-5.0); Amylase 56 U/L (30-110); Anion Gap 12 mmol/L; Blood Urea Nitrogen 17 mg/dL (9-20); Calcium 9.6 mg/dL (8.4-10.2); Carbon Dioxide 20 mmol/L (22-30); Chloride 106 mmol/L (98-107); Glucose 178 mg/dL (74-99); Lipase 94 U/L (23-300); Non-African American GFR(CKD) >90 (>60 ml/min/1.73 sqM); Sodium 138 mmol/L (137-145); Total Bilirubin 0.9 mg/dL (0.2-1.3); Total Protein 9.1 g/dL (6.3-8.2)
[2023-01-18 07:34] LABS: AST 48 U/L (17-59); Alkaline Phosphatase 61 U/L (38-126); Potassium 5.3 mmol/L (3.5-5.1)
--- NOTE | 2023-01-18 08:04 | CT ---
EXAMINATION TYPE: CT abdomen pelvis wo con CT DLP: 1625.4 mGycm, Automated exposure control for dose reduction was used. DATE OF EXAM: 01/18/2023 7:43 AM COMPARISON: None CLINICAL INDICATION:Male, 32 years old with history of abdominal pain; Abdominal pain TECHNIQUE: Standard CT of the abdomen and pelvis without IV or oral contrast. Lack of IV or oral co ntrast limits evaluation of solid and hollow organ viscera. Coronal and sagittal reformats were perfo rmed. FINDINGS: LOWER CHEST: Unremarkable ABDOMEN LIVER: Diffusely hypoattenuating parenchyma. GALLBLADDER AND BILE DUCTS: Unremarkable noncontrast appearance PANCREAS: Unremarkable noncontrast appearance SPLEEN: Unremarkable noncontrast appearance ADRENAL GLANDS: Unremarkable noncontrast appearance. KIDNEYS AND URETERS: No renal calculus. Mild bilateral hydroureteronephrosis. PELVIS BLADDER: Moderately distended urinary bladder with layering hyperdense material within the ureter betzy dder extending into the prosthetic urethra. REPRODUCTIVE: Unremarkable. ABDOMEN & PELVIS STOMACH AND BOWEL: Stomach and duodenum are unremarkable. No focal bowel wall thickening or surroundi ng inflammatory changes. No evidence of bowel obstruction. PERITONEUM: No evidence of pneumoperitoneum or free fluid. Anterior abdominal wall shunt catheter connor ntified with tip terminating in the gastrohepatic region. No surrounding fluid collection. VASCULATURE: No evidence of aortic aneurysm. MUSCULOSKELETAL: No acute osseous abnormalities. Chronic appearing dislocation of the right hip. Dege nerative changes of both SI joints. Spina bifida demonstrated with meningocele suspected at S1-S3. LYMPH NODES: No gross evidence for lymphadenopathy. SOFT TISSUE/ABDOMINAL WALL: Left lower quadrant large parastomal hernia containing nonobstructive sma ll and large bowel. Fat stranding posterior to the coccyx. Bilateral ischial decubitus ulcers with ad jacent increased sclerosis. IMPRESSION: 1. Moderately distended urinary bladder with bilateral hydroureteronephrosis. Hyperdense material la yering within the urinary bladder extending to the prostatic urethra concerning for calculi. Consider Dai catheter placement. 2. Large left abdominal parastomal hernia containing nonobstructive large and small bowel. 3. Chronic appearing dislocation of the right hip. 4. Spina bifida with suspected meningocele at S1-S3. 5. Bilateral ischial decubitus ulcers with increased osseous sclerosis concerning for chronic osteom yelitis. 6. Hepatic steatosis.
[2023-01-18 09:28] LABS: Appearance,Urine Turbid (Clear); Bilirubin,Urine Negative (Negative); Blood,Urine Large (Negative); Color,Urine Yellow; Glucose,Urine (UA) Negative (Negative); Ketones,Urine Negative (Negative); Leukocyte Esterase,Urine Large (Negative); Mucus,Urine Occasional /hpf; Nitrite,Urine Negative (Negative); PH, Urine 7.5 (5.0-8.0); Protein,Urine 2+ (Negative); RBC,Urine >182 /hpf (0-5); Squamous Epithelial Cell,Urine 1 /hpf (0-4); Urobilinogen,Urine <2.0 mg/dL (<2.0); WBC,Urine >182 /hpf (0-5)
[2023-01-18 12:06] VITALS: BP 161/84; PULSE 100; RESP 16; TEMP 98.2
== END 2023-01-18 12:06 | disposition home or self-care (01) ==
LOC: EC 02:48
DX: L89.154 Pressure ulcer of sacral region, stage 4 (principal); R10.13 Epigastric pain; E11.9 Type 2 diabetes mellitus without complications; F17.290 Nicotine dependence, other tobacco product, uncomplicated; F12.90 Cannabis use, unspecified, uncomplicated; Z79.4 Long term (current) use of insulin; Z79.84 Long term (current) use of oral hypoglycemic drugs
CPT/HCPCS: 36415; 80053; 82150; 83605; 83690; 85025; 81001; 74176; 99284; 96374; 96375 ×2; 96361 ×5; J2405; J1170; C9113

== ENCOUNTER 2023-01-26 04:15 | Emergency (ER) | payer OTHER ==
--- NOTE | 2023-01-26 04:50 | ED ---
General Adult HPI - General Chief complaint: Urogenital Stated complaint: Urine Retention Time Seen by Provider: 01/26/23 04:25 Source: patient Mode of arrival: wheelchair Limitations: no limitations - History of Present Illness Initial comments: Dictation was produced using [email or web address] dictation software. please excuse any grammatical, word or spelling errors. Chief Complaint: 32-year-old male presents with urinary retention History of Present Illness: 32-year-old male who presents with urinary retention. He recently had a Dai catheter that was removed by his significant other after the drainage tubing got caught on his leg. Significant other has ruled Dai catheters in the past. She dropped alone and slit the catheter out. Patient has not urinated several hours. The ROS documented in this emergency department record has been reviewed and confirmed by me. Those systems with pertinent positive or negative responses h ave been documented in the HPI. All other systems are other negative and/or noncontributory. - Related Data Home Medications Medication Instructions Recorded Confirmed Atorvastatin [Lipitor] 40 mg PO DAILY 02/14/22 02/14/22 Ergocalciferol [Vitamin D2 (1250 1,250 mcg PO Q7D 02/14/22 02/14/22 Mcg = 54408 Iu)] Ferrous Sulfate [Iron (65 MG 325 mg PO DAILY 02/14/22 02/14/22 Elemental)] Glimepiride [Amaryl] 2 mg PO DAILY 02/14/22 02/14/22 Insulin Degludec [Tresiba 10 units SQ DAILY 02/14/22 02/14/22 Flextouch U-100 Pen] Metoprolol Succinate (ER) [Toprol 25 mg PO DAILY 02/14/22 02/14/22 XL] Semaglutide [Rybelsus] 3 mg PO DAILY 02/14/22 02/14/22 lisinopriL [Zestril] 20 mg PO DAILY 02/14/22 02/14/22 metFORMIN HCL [Glucophage] 1,000 mg PO BID 02/14/22 02/14/22 Previous Rx's Medication Instructions Recorded Amoxic-Pot Clav 875-125Mg 1 tab PO Q12HR 14 Days #28 tab 02/18/22 [Augmentin 875-125] Ciprofloxacin HCl [Cipro] 500 mg PO Q12HR 14 Days #28 tab 02/18/22 Cephalexin [Keflex] 500 mg PO Q6HR 10 Days #40 cap 01/18/23 Cefpodoxime Proxetil [Vantin] 200 mg PO Q12HR 10 Days #20 tab 01/26/23 Allergies Allergy/AdvReac Type Severity Reaction Status Date / Time No Known Allergies Allergy Verified 01/26/23 04:16 Review of Systems ROS Statement: Those systems with pertinent positive or pertinent negative responses have been documented in the HPI. ROS Other: All systems not noted in ROS Statement are negative. Past Medical History Past Medical History: Diabetes Mellitus Additional Past Medical History / Comment(s): club foot, spinal fibida, hydrocephalus, incontinent History of Any Multi-Drug Resistant Organisms: MRSA Date of last positivie culture/infection: 2015 MDRO Source:: buttocks Past Surgical History: Back Surgery, Joint Replacement Additional Past Surgical History / Comment(s): shunt , left hip, colostomy Past Anesthesia/Blood Transfusion Reactions: No Reported Reaction Past Psychological History: No Psychological Hx Reported Smoking Status: Vaper Past Alcohol Use History: None Reported Past Drug Use History: Marijuana - Past Family History Mother Family Medical History: Blood Disorder Additional Family Medical History / Comment(s): Mother is living and currently age 42. States receives blood transfusions Father History Unknown: Yes Additional Family Medical History / Comment(s): Father at age 50 from unknown cause family Additional Family Medical History / Comment(s): no report of CAD General Exam - General Exam Comments Initial Comments: PHYSICAL EXAM: General Impression: Alert and oriented x3, not in acute distress HEENT: Normocephalic atraumatic, extra-ocular movements intact, pupils equal and reactive to light bilaterally, mucous membranes moist. Cardiovascular: Heart regular rate and rhythm Chest: Able to complete full sentences, no retractions, no tachypnea Motor: no focal deficits noted Neurological: CN II-XII grossly intact, no focal motor or sensory deficits noted Skin: Intact with no visualized rashes Psych: Normal affect and mood Limitations: no limitations Course Vital Signs 01/26/23 04:16 Temperature 98.2 F Pulse Rate 112 H Respiratory 18 Rate Blood Pressure 132/88 O2 Sat by Pulse 98 Oximetry Medical Decision Making - Medical Decision Making Was pt. sent in by a medical professional or institution (, PA, GROUNDS CARETAKER, urgent care, hospital, or custodial...) When possible be specific @ -No Did you speak to anyone other than the patient for history (EMS, parent, family, police, friend...)? What history was obtained from this source @ -No Did you review nursing and triage notes (agree or disagree)? Why? @ -I reviewed and agree with nursing and triage notes Were old charts reviewed (outside hosp., previous admission, EMS record, old EKG, old radiological studies, urgent care reports/EKG's, custodial records)? Report findings @ -No old charts were reviewed Differential Diagnosis (chest pain, altered mental status, abdominal pain women, abdominal pain men, vaginal bleeding, musculoskeletal, weakness, fever, dyspnea, syncope, headache, dizziness, GI bleed, back pain, seizure, CVA, palpatations, mental health)? @ -not applicable EKG interpreted by me (3pts min.). @ -None done X-rays interpreted by me (1pt min.). @ -None done CT interpreted by me (1pt min.). @ -[None done] U/S interpreted by me (1pt. min.). @ -[None done] What testing was considered but not performed or refused? (CT, X-rays, U/S, labs)? Why? @ -[None] What meds were considered but not given or refused? Why? @ -[None] Did you discuss the management of the patient with other professionals (professionals i.e. , PA, GROUNDS CARETAKER, lab, RT, psych nurse, criminal justice social worker, land acquisition manager, teacher, financial administration officer, case fitter)? Give summary @ -[No] Was smoking cessation discussed for >3mins.? @ -[No] Was critical care preformed (if so, how long)? @ -[No] Were there social determinants of health that impacted care today? How? (Homelessness, low income, unemployed, alcoholism, drug addiction, transportation, low edu. Level, literacy, decrease access to med. care, half-way, rehab)? @ -[No] Was there de-escalation of care discussed even if they declined (Discuss DNR or withdrawal of care, Hospice)? DNR status @ -[No] What co-morbidities impacted this encounter? (DM, HTN, Smoking, COPD, CAD, C ancer, CVA, ARF, Chemo, Hep., AIDS, mental health diagnosis, sleep apnea, morbid obesity)? @ -[None] Was patient admitted / discharged? Hospital course, mention meds given and route, prescriptions, significant lab abnormalities, going to OR and other pertinent info. @ -32-year-old male presents with urinary retention. He had his Dai catheter removed without the advice of a urologist or specialiist. .Has not urinated several hours. Dai catheter was replaced. Urinalysis was sent for urine given that it was cloudy. Urinalysis suggests urinary tract infection. Patient prescription for antibiotics Patient discharged told that he should follow-up with urologist. Undiagnosed new problem with uncertain prognosis? @ -[No] Drug Therapy requiring intensive monitoring for toxicity (Heparin, Nitro, Insulin, Cardizem)? @ -[No] Were any procedures done? @ -[No] Diagnosis/symptom? Acute, or Chronic, or Acute on Chronic? Uncomplicated (without systemic symptoms) or Complicated (systemic symptoms)? @ -Urinary retention Side effects of treatment? @ -[No] Exacerbation, Progression, or Severe Exacerbation? @ -[No] Poses a threat to life or bodily function? How? (Chest pain, [place], [place], pneumonia, PE, COPD, DKA, ARF, appy, cholecystitis, CVA, Diverticulitis, Homicidal, Suicidal, threat to staff... and all critical care pts) @ -yes - Lab Data Lab Results 01/26/23 Range/Units 05:25 Urine Color Colorless Urine Appearance Cloudy (Clear) Urine pH 7.5 (5.0-8.0) Ur Specific [place] 1.019 (1.001-1.035) Urine Protein 1+ H (Negative) Urine Glucose (UA) 4+ H (Negative) Urine Ketones Negative (Negative) Urine Blood Trace H (Negative) Urine Nitrite Negative (Negative) Urine Bilirubin Negative (Negative) Urine Urobilinogen <2.0 (<2.0) mg/dL Ur Leukocyte Esterase Large H (Negative) Urine RBC 21 H (0-5) /hpf Urine WBC >182 H (0-5) /hpf Urine WBC Clumps Few H (None) /hpf Urine Bacteria Occasional H (None) /hpf Urine Mucus Rare H (None) /hpf Disposition Clinical Impression: Urinary retention, UTI (urinary tract infection) Disposition: HOME SELF-CARE Condition: Fair Instructions (If sedation given, give patient instructions): Dai Catheter Placement and Care (ED), Urinary Tract Infection in Men (ED) Prescriptions: Cefpodoxime Proxetil [Vantin] 200 mg PO Q12HR 10 Days #20 tab Is patient prescribed a controlled substance at d/c from ED?: No Referrals: Arik Vega MD [STAFF PHYSICIAN] - 1-2 days Time of Disposition: 04:50
[2023-01-26 06:28] LABS: Appearance,Urine Cloudy (Clear); Bacteria,Urine Occasional /hpf; Bilirubin,Urine Negative (Negative); Blood,Urine Trace (Negative); Color,Urine Colorless; Glucose,Urine (UA) 4+ (Negative); Ketones,Urine Negative (Negative); Leukocyte Esterase,Urine Large (Negative); Mucus,Urine Rare /hpf; Nitrite,Urine Negative (Negative); PH, Urine 7.5 (5.0-8.0); Protein,Urine 1+ (Negative); RBC,Urine 21 /hpf (0-5); Specific Gravity,Urine 1.019 (1.001-1.035); Urobilinogen,Urine <2.0 mg/dL (<2.0); WBC,Urine >182 /hpf (0-5)
[2023-01-26] MEDS ORDERED: ACET/COD 300 MG/30 MG STARTER PACK 6 TAB BTL PO STA (06:36)
[2023-01-26 15:54] VITALS: BP 132/88; PULSE 112; RESP 18; TEMP 98.2
== END 2023-01-26 06:55 | disposition home or self-care (01) ==
LOC: EC 04:15
DX: N39.0 Urinary tract infection, site not specified (principal); R33.9 Retention of urine, unspecified; E11.9 Type 2 diabetes mellitus without complications; F17.290 Nicotine dependence, other tobacco product, uncomplicated; F12.90 Cannabis use, unspecified, uncomplicated; Z79.4 Long term (current) use of insulin; Z79.84 Long term (current) use of oral hypoglycemic drugs
CPT/HCPCS: 51702; 81001; 87086; 99283

== ENCOUNTER 2023-02-01 11:44 | Emergency (ER) | payer OTHER ==
[2023-02-01 12:51] LABS: Amorphous Sediment,Urine Rare /hpf; Appearance,Urine Turbid (Clear); Bacteria,Urine Moderate /hpf; Bilirubin,Urine Negative (Negative); Blood,Urine Moderate (Negative); Color,Urine Yellow; Glucose,Urine (UA) Negative (Negative); Ketones,Urine Negative (Negative); Leukocyte Esterase,Urine Large (Negative); Nitrite,Urine Negative (Negative); PH, Urine 8.5 (5.0-8.0); Protein,Urine 3+ (Negative); RBC,Urine >182 /hpf (0-5); Specific Gravity,Urine 1.017 (1.001-1.035); Urobilinogen,Urine <2.0 mg/dL (<2.0); WBC,Urine >182 /hpf (0-5)
--- NOTE | 2023-02-01 13:09 | ED ---
General Adult HPI - General Chief complaint: Urogenital Stated complaint: Catheter issue Time Seen by Provider: 02/01/23 12:07 Source: patient Mode of arrival: wheelchair Limitations: no limitations - History of Present Illness Initial comments: Patient is a 32-year-old male who presents to the emergency department Dai catheter issue. Patient states the catheter has been clogged since yesterday. Family is concerned with smell and thickness of urine. Patient was recently evaluated in our emergency department on 01/26 for similar concern. Dai ca theter was changed patient was diagnosed with urinary tract infection. Patient states pharmacy did not have his antibiotic therefore he has not taken any. He denies fever, chills, abdominal pain, nausea, vomiting. - Related Data Home Medications Medication Instructions Recorded Confirmed Atorvastatin [Lipitor] 40 mg PO DAILY 02/14/22 02/14/22 Ergocalciferol [Vitamin D2 (1250 1,250 mcg PO Q7D 02/14/22 02/14/22 Mcg = 60750 Iu)] Ferrous Sulfate [Iron (65 MG 325 mg PO DAILY 02/14/22 02/14/22 Elemental)] Glimepiride [Amaryl] 2 mg PO DAILY 02/14/22 02/14/22 Insulin Degludec [Tresiba 10 units SQ DAILY 02/14/22 02/14/22 Flextouch U-100 Pen] Metoprolol Succinate (ER) [Toprol 25 mg PO DAILY 02/14/22 02/14/22 XL] Semaglutide [Rybelsus] 3 mg PO DAILY 02/14/22 02/14/22 lisinopriL [Zestril] 20 mg PO DAILY 02/14/22 02/14/22 metFORMIN HCL [Glucophage] 1,000 mg PO BID 02/14/22 02/14/22 Previous Rx's Medication Instructions Recorded Amoxic-Pot Clav 875-125Mg 1 tab PO Q12HR 14 Days #28 tab 02/18/22 [Augmentin 875-125] Ciprofloxacin HCl [Cipro] 500 mg PO Q12HR 14 Days #28 tab 02/18/22 Cephalexin [Keflex] 500 mg PO Q6HR 10 Days #40 cap 01/18/23 Cefpodoxime Proxetil [Vantin] 200 mg PO Q12HR 10 Days #20 tab 01/26/23 Cefpodoxime Proxetil [Vantin] 200 mg PO Q12HR #20 tab 02/01/23 Allergies Allergy/AdvReac Type Severity Reaction Status Date / Time No Known Allergies Allergy Verified 02/01/23 11:56 Review of Systems ROS Statement: Those systems with pertinent positive or pertinent negative responses have been documented in the HPI. ROS Other: All systems not noted in ROS Statement are negative. Past Medical History Past Medical History: Diabetes Mellitus Additional Past Medical History / Comment(s): club foot, spinal fibida, hydrocephalus, incontinent History of Any Multi-Drug Resistant Organisms: MRSA Date of last positivie culture/infection: 2015 MDRO Source:: buttocks Past Surgical History: Back Surgery, Joint Replacement Additional Past Surgical History / Comment(s): shunt , left hip, colostomy Past Anesthesia/Blood Transfusion Reactions: No Reported Reaction Past Psychological History: No Psychological Hx Reported Smoking Status: Vaper Past Alcohol Use History: None Reported Past Drug Use History: Marijuana - Past Family History Mother Family Medical History: Blood Disorder Additional Family Medical History / Comment(s): Mother is living and currently age 42. States receives blood transfusions Father History Unknown: Yes Additional Family Medical History / Comment(s): Father at age 50 from unknown cause family Additional Family Medical History / Comment(s): no report of CAD General Exam Limitations: no limitations General appearance: alert Eye exam: Present: normal appearance, PERRL, EOMI. Absent: scleral icterus, conjunctival injection, periorbital swelling Respiratory exam: Present: normal lung sounds bilaterally. Absent: respiratory distress, wheezes, rales, rhonchi, stridor Cardiovascular Exam: Present: normal rhythm, tachycardia, normal heart sounds. Absent: regular rate, systolic murmur, diastolic murmur, rubs, gallop, clicks GI/Abdominal exam: Present: soft, normal bowel sounds. Absent: distended, tenderness, guarding, rebound, rigid Neurological exam: Present: alert Psychiatric exam: Present: normal affect, normal mood Skin exam: Present: warm, dry, intact, normal color. Absent: rash Course Vital Signs 02/01/23 02/01/23 11:54 11:57 Temperature 98.4 F Pulse Rate 122 H 110 H Respiratory 18 Rate Blood Pressure 132/80 O2 Sat by Pulse 98 Oximetry Medical Decision Making - Medical Decision Making Was pt. sent in by a medical professional or institution (LATRICE Serrato, ELEMENTARY ELL TEACHER, urgent care, hospital, or [facility]...) When possible be specific @ -No Did you speak to anyone other than the patient for history (EMS, parent, family, police, friend...)? What history was obtained from this source @ -No Did you review nursing and triage notes (agree or disagree)? Why? @ -I reviewed and agree with nursing and triage notes Were old charts reviewed (outside hosp., previous admission, EMS record, old EKG, old radiological studies, urgent care reports/EKG's, [facility] records)? Report findings @ -No old charts were reviewed Differential Diagnosis (chest pain, altered mental status, abdominal pain women, abdominal pain men, vaginal bleeding, weakness, fever, dyspnea, syncope, headache, dizziness, GI bleed, back pain, seizure, CVA, palpatations, mental health)? @ Urinary tract infection, kidney infection, pyelonephritis EKG interpreted by me (3pts min.). @ -As above X-rays interpreted by me (1pt min.). @ -None done CT interpreted by me (1pt min.). @ -None done U/S interpreted by me (1pt. min.). @ -None done What testing was considered but not performed or refused? (CT, X-rays, U/S, labs)? Why? @ -None What meds were considered but not given or refused? Why? @ -None Did you discuss the management of the patient with other professionals (professionals i.e. LATRICE Serrato, ELEMENTARY ELL TEACHER, lab, RT, psych nurse, social media marketer, wire strander, teacher, structural engineering drafting officer, case picker)? Give summary @ -No Was smoking cessation discussed for >3mins.? @ -No Was critical care preformed (if so, how long)? @ -No Were there social determinants of health that impacted care today? How? (Homelessness, low income, unemployed, alcoholism, drug addiction, transportation, low edu. Level, literacy, decrease access to med. care, [facility], rehab)? @ -No Was there de-escalation of care discussed even if they declined (Discuss DNR or withdrawal of care, Hospice)? DNR status @ -No What co-morbidities impacted this encounter? (DM, HTN, Smoking, COPD, CAD, Cancer, CVA, ARF, Chemo, Hep., AIDS, mental health diagnosis, sleep apnea, morbid obesity)? @ -None Was patient admitted / discharged? Hospital course, mention meds given and route, prescriptions, significant lab abnormalities, going to OR and other pertinent info. @ -32-year-old male presents with urinary retention. Urinalysis suggests urinary tract infection. Dai catheter was replaced without issue. Patient will be discharged with antibiotic prescription. We discussed the importance of taking antibiotic and return parameters. Patient will follow up with urology and primary care provider. Undiagnosed new problem with uncertain prognosis? @ -No Drug Therapy requiring intensive monitoring for toxicity (Heparin, Nitro, Insulin, Cardizem)? @ -No Were any procedures done? @ -No Diagnosis/symptom? @ -urinary retention, UTI Acute, or Chronic, or Acute on Chronic? @ -acute Uncomplicated (without systemic symptoms) or Complicated (systemic symptoms)? @ -uncomplicated Side effects of treatment? @ -No] Exacerbation, Progression, or Severe Exacerbation? @ -[No] Poses a threat to life or bodily function? How? (Chest pain, [place], [place], pneumonia, PE, COPD, DKA, ARF, appy, cholecystitis, CVA, Diverticulitis, Homicidal, Suicidal, threat to staff... and all critical care pts) @ -[No] Dr. Whipple is my attending - Lab Data Lab Results 02/01/23 Range/Units 12:40 Urine Color Yellow Urine Appearance Turbid (Clear) Urine pH 8.5 H (5.0-8.0) Ur Specific [place] 1.017 (1.001-1.035) Urine Protein 3+ H (Negative) Urine Glucose (UA) Negative (Negative) Urine Ketones Negative (Negative) Urine Blood Moderate H (Negative) Urine Nitrite Negative (Negative) Urine Bilirubin Negative (Negative) Urine Urobilinogen <2.0 (<2.0) mg/dL Ur Leukocyte Esterase Large H (Negative) Urine RBC >182 H (0-5) /hpf Urine WBC >182 H (0-5) /hpf Urine WBC Clumps Many H (None) /hpf Amorphous Sediment Rare H (None) /hpf Urine Bacteria Moderate H (None) /hpf Disposition Clinical Impression: UTI (urinary tract infection) Disposition: HOME SELF-CARE Condition: Good Instructions (If sedation given, give patient instructions): Urinary Tract Infection in Men (ED), Dai Catheter Placement and Care (ED), How to Change a Catheter Drainage Bag (DC) Additional Instructions: It is important to take antibiotic. Follow-up with primary care provider in one to 2 days. Return to the emergency department if you experience new, concerning, or worsening symptoms Prescriptions: Cefpodoxime Proxetil [Vantin] 200 mg PO Q12HR #20 tab Is patient prescribed a controlled substance at d/c from ED?: No Referrals: Jannette Sam MD [Primary Care Provider] - 1-2 days
[2023-02-01] MEDS ORDERED: CEFDINIR 300 MG CAP PO STA (13:11)
[2023-02-01 13:18] VITALS: BP 132/80; PULSE 110; RESP 18; TEMP 98.4
== END 2023-02-01 13:42 | disposition home or self-care (01) ==
LOC: EC 11:44
DX: N39.0 Urinary tract infection, site not specified (principal); E11.9 Type 2 diabetes mellitus without complications; F17.290 Nicotine dependence, other tobacco product, uncomplicated; F12.90 Cannabis use, unspecified, uncomplicated; Z79.4 Long term (current) use of insulin; Z79.84 Long term (current) use of oral hypoglycemic drugs
CPT/HCPCS: 51702; 81001; 87086; 99283

== ENCOUNTER 2023-02-02 00:28 | Emergency (ER) | payer OTHER ==
[2023-02-02 00:35] VITALS: RESP 18; TEMP 98.9
[2023-02-02 02:14] LABS: Basophils % (A) 0 %; Eosinophils # (A) 0.1 k/uL (0-0.7); Eosinophils % (A) 1 %; HCT 38.7 % (39.0-53.0); HGB 12.7 gm/dL (13.0-17.5); Lymphocytes # (A) 1.3 k/uL (1.0-4.8); Lymphocytes % (A) 8 %; MCH 27.7 pg (25.0-35.0); MCHC 32.9 g/dL (31.0-37.0); Mean Platelet Volume 7.6; Monocytes # (A) 0.7 k/uL (0-1.0); Monocytes % (A) 5 %; Neutrophils # (A) 13.2 k/uL (1.3-7.7); Neutrophils % (A) 85 %; Platelet Count 329 k/uL (150-450); RDW 14.4 % (11.5-15.5); WBC 15.5 k/uL (3.8-10.6)
[2023-02-02 02:22] LABS: ALT 57 U/L (4-49); AST 49 U/L (17-59); African American GFR (CKD) >90 (>60 ml/min/1.73 sqM); Albumin 4.1 g/dL (3.5-5.0); Alkaline Phosphatase 72 U/L (38-126); Anion Gap 9 mmol/L; Blood Urea Nitrogen 22 mg/dL (9-20); Calcium 9.2 mg/dL (8.4-10.2); Carbon Dioxide 24 mmol/L (22-30); Chloride 104 mmol/L (98-107); Glucose 174 mg/dL (74-99); Non-African American GFR(CKD) >90 (>60 ml/min/1.73 sqM); Potassium 4.4 mmol/L (3.5-5.1); Sodium 137 mmol/L (137-145); Total Bilirubin 0.8 mg/dL (0.2-1.3); Total Protein 8.5 g/dL (6.3-8.2)
[2023-02-02 03:21] LABS: Appearance,Urine Turbid (Clear); Bacteria,Urine Moderate /hpf; Bilirubin,Urine Negative (Negative); Blood,Urine Small (Negative); Color,Urine Yellow; Glucose,Urine (UA) Negative (Negative); Ketones,Urine Negative (Negative); Leukocyte Esterase,Urine Large (Negative); Mucus,Urine Occasional /hpf; Nitrite,Urine Negative (Negative); PH, Urine 8.5 (5.0-8.0); Protein,Urine 3+ (Negative); RBC,Urine 82 /hpf (0-5); Specific Gravity,Urine 1.012 (1.001-1.035); Squamous Epithelial Cell,Urine 1 /hpf (0-4); Urobilinogen,Urine <2.0 mg/dL (<2.0); WBC,Urine >182 /hpf (0-5)
--- NOTE | 2023-02-02 03:24 | ED ---
General Adult HPI - General Chief complaint: Urogenital Stated complaint: Urine Retention Time Seen by Provider: 02/02/23 00:49 Source: patient, RN notes reviewed Mode of arrival: ambulatory Limitations: no limitations - History of Present Illness Initial comments: 32-year-old male with past medical history significant for indwelling Dai catheter presents the emergency department the chief complaint of urinary retention. Patient reports that he was here yesterday and was given a new prescription of antibiotics. He reports that his Dai has had low output. He believes that it is out of place. He denies any known fevers, flank pain, nausea, vomiting. He reports lower abdominal pain as he has not had any urinary output and a few hours. - Related Data Home Medications Medication Instructions Recorded Confirmed Atorvastatin [Lipitor] 40 mg PO DAILY 02/14/22 02/14/22 Ergocalciferol [Vitamin D2 (1250 1,250 mcg PO Q7D 02/14/22 02/14/22 Mcg = 12123 Iu)] Ferrous Sulfate [Iron (65 MG 325 mg PO DAILY 02/14/22 02/14/22 Elemental)] Glimepiride [Amaryl] 2 mg PO DAILY 02/14/22 02/14/22 Insulin Degludec [Tresiba 10 units SQ DAILY 02/14/22 02/14/22 Flextouch U-100 Pen] Metoprolol Succinate (ER) [Toprol 25 mg PO DAILY 02/14/22 02/14/22 XL] Semaglutide [Rybelsus] 3 mg PO DAILY 02/14/22 02/14/22 lisinopriL [Zestril] 20 mg PO DAILY 02/14/22 02/14/22 metFORMIN HCL [Glucophage] 1,000 mg PO BID 02/14/22 02/14/22 Previous Rx's Medication Instructions Recorded Amoxic-Pot Clav 875-125Mg 1 tab PO Q12HR 14 Days #28 tab 02/18/22 [Augmentin 875-125] Ciprofloxacin HCl [Cipro] 500 mg PO Q12HR 14 Days #28 tab 02/18/22 Cephalexin [Keflex] 500 mg PO Q6HR 10 Days #40 cap 01/18/23 Cefpodoxime Proxetil [Vantin] 200 mg PO Q12HR 10 Days #20 tab 01/26/23 Cefpodoxime Proxetil [Vantin] 200 mg PO Q12HR #20 tab 02/01/23 Allergies Allergy/AdvReac Type Severity Reaction Status Date / Time No Known Allergies Allergy Verified 02/02/23 00:29 Review of Systems ROS Statement: Those systems with pertinent positive or pertinent negative responses have been documented in the HPI. ROS Other: All systems not noted in ROS Statement are negative. Past Medical History Past Medical History: Diabetes Mellitus Additional Past Medical History / Comment(s): club foot, spinal fibida, hydrocephalus, incontinent History of Any Multi-Drug Resistant Organisms: MRSA Date of last positivie culture/infection: 2015 MDRO Source:: buttocks Past Surgical History: Back Surgery, Joint Replacement Additional Past Surgical History / Comment(s): shunt , left hip, colostomy Past Anesthesia/Blood Transfusion Reactions: No Reported Reaction Past Psychological History: No Psychological Hx Reported Smoking Status: Vaper Past Alcohol Use History: None Reported Past Drug Use History: Marijuana - Past Family History Mother Family Medical History: Blood Disorder Additional Family Medical History / Comment(s): Mother is living and currently age 42. States receives blood transfusions Father History Unknown: Yes Additional Family Medical History / Comment(s): Father at age 50 from unknown cause family Additional Family Medical History / Comment(s): no report of CAD General Exam - General Exam Comments Initial Comments: General: Alert, in no acute distress Head: atraumatic normocephalic. Eyes PERRL, EOMI intact, mucous membranes moist Respiratory: Lungs clear to auscultation bilaterally Cardiovascular: Heart rate regular rhythm Abdominal: Soft without guarding or rebound, urinary catheter appears intact. 50 cc of light pink blood in Dai collection bag Extremities: Normal inspection with full range of motion and normal capillary refill, low extremities atrophic Neuroogic: alert and oriented 3, CN II-XII intact, able to ambulate with steady gait Skin: warm dry and intact with normal color Limitations: no limitations Course Vital Signs 02/02/23 02/02/23 00:29 02:41 Temperature 98.9 F Pulse Rate 123 H 113 H Respiratory 18 18 Rate Blood Pressure 157/71 136/67 O2 Sat by Pulse 96 97 Oximetry - Reevaluation(s) Reevaluation #1: 02/02/23 03:29 He shouldn't reevaluated. Patient reports symptomatically status post bladder irrigation. Patient verbalizes that he would likely be discharged home at this time. Medical Decision Making - Medical Decision Making Was pt. sent in by a medical professional or institution (LATRICE Serrato, [facility], urgent care, hospital, or custodial...) When possible be specific @ -[No] Did you speak to anyone other than the patient for history (EMS, parent, family, police, friend...)? What history was obtained from this source @ -[No] Did you review nursing and triage notes (agree or disagree)? Why? @ -[I reviewed and agree with nursing and triage notes] Were old charts reviewed (outside hosp., previous admission, EMS record, old EKG, old radiological studies, urgent care reports/EKG's, custodial records)? Report findings @ -[No old charts were reviewed] Differential Diagnosis (chest pain, altered mental status, abdominal pain women, abdominal pain men, vaginal bleeding, weakness, fever, dyspnea, syncope, headache, dizziness, GI bleed, back pain, seizure, CVA, palpatations, mental health, musculoskeletal)? @ -[not applicable] EKG interpreted by me (3pts min.). @ -[As above] X-rays interpreted by me (1pt min.). @ -[None done] CT interpreted by me (1pt min.). @ -[None done] U/S interpreted by me (1pt. min.). @ -[None done] What testing was considered but not performed or refused? (CT, X-rays, U/S, labs)? Why? @ -[None] What meds were considered but not given or refused? Why? @ -[None] Did you discuss the management of the patient with other professionals (professionals i.e. LATRICE Serrato, CH[employer] T[employer]PER, lab, RT, psych nurse, social work instructor, glue cook, teacher, hotel security officer, case picker)? Give summary @ -[No] Was smoking cessation discussed for >3mins.? @ -[No] Was critical care preformed (if so, how long)? @ -[No] Were there social determinants of health that impacted care today? How? (Homelessness, low income, unemployed, alcoholism, drug addiction, transportation, low edu. Level, literacy, decrease access to med. care, half-way, rehab)? @ -[No] Was there de-escalation of care discussed even if they declined (Discuss DNR or withdrawal of care, Hospice)? DNR status @ -[No] What co-morbidities impacted this encounter? (DM, HTN, Smoking, COPD, CAD, Cancer, CVA, ARF, Chemo, Hep., AIDS, mental health diagnosis, sleep apnea, morbid obesity)? @ -[None] Was patient admitted / discharged? Hospital course, mention meds given and route, prescriptions, significant lab abnormalities, going to OR and other pertinent info. @ -Discharged. This is a pleasant 32-year-old male presents to the emergency department with a chief complaint catheter problem. Patient had a thorough history and physical exam performed. Initial Dai catheter with 50 mL of light red blood. Without clots in Dai collection bag. Patient had laboratory studies performed which revealed WBC 15.5, hemoglobin 12.7 sodium 137, potassium 4.4 BUN 22, creatinine 0.74 Urinalysis reveals large amount of leukocyte esterase, greater than 182 wbc's. Patient reports that he is currently taking antibiotics as prescribed from yesterday. D discuss the results in detail with the patient who verbalized understanding all questions addressed. Patient was reevaluated and reports symptomatically status post evaluation. Patient will be discharged home in stable condition. R eturn precautions were discussed. Case discussed with Dr. Wang [facility] who presents the care Undiagnosed new problem with uncertain prognosis? @ -[No] Drug Therapy requiring intensive monitoring for toxicity (Heparin, Nitro, Insulin, Cardizem)? @ -[No] Were any procedures done? @ -[No] Diagnosis/symptom? @ -Catheter Problem Acute, or Chronic, or Acute on Chronic? @ -Acute Uncomplicated (without systemic symptoms) or Complicated (systemic symptoms)? @ -Uncomplictaed Side effects of treatment? @ -[No] Exacerbation, Progression, or Severe Exacerbation? @ -[No] Poses a threat to life or bodily function? How? (Chest pain, [place], [place], pneumonia, PE, COPD, DKA, ARF, appy, cholecystitis, CVA, Diverticulitis, Homicidal, Suicidal, threat to staff... and all critical care pts) @ -Low likelihood - Lab Data Result diagrams: 02/02/23 01:51 02/02/23 01:51 Lab Results 09/02/02/23 02/02/23 Range/Units 01:51 01:51 02:28 WBC 15.5 H (3.8-10.6) k/uL RBC 4.60 (4.30-5.90) m/uL Hgb 12.7 L (13.0-17.5) gm/dL Hct 38.7 L (39.0-53.0) % MCV 84.0 (80.0-100.0) fL MCH 27.7 (25.0-35.0) pg MCHC 32.9 (31.0-37.0) g/dL RDW 14.4 (11.5-15.5) % Plt Count 329 (150-450) k/uL MPV 7.6 Neutrophils % 85 % Lymphocytes % 8 % Monocytes % 5 % Eosinophils % 1 % Basophils % 0 % Neutrophils # 13.2 H (1.3-7.7) k/uL Lymphocytes # 1.3 (1.0-4.8) k/uL Monocytes # 0.7 (0-1.0) k/uL Eosinophils # 0.1 (0-0.7) k/uL Basophils # 0.0 (0-0.2) k/uL Sodium 137 (137-145) mmol/L Potassium 4.4 (3.5-5.1) mmol/L Chloride 104 (98-107) mmol/L Carbon Dioxide 24 (22-30) mmol/L Anion Gap 9 mmol/L BUN 22 H (9-20) mg/dL Creatinine 0.74 (0.66-1.25) mg/dL Est GFR (CKD-EPI)AfAm >90 (>60 ml/min/1.73 sqM) Est GFR (CKD-EPI)NonAf >90 (>60 ml/min/1.73 sqM) Glucose 174 H (74-99) mg/dL Calcium 9.2 (8.4-10.2) mg/dL Total Bilirubin 0.8 (0.2-1.3) mg/dL AST 49 (17-59) U/L ALT 57 H (4-49) U/L Alkaline Phosphatase 72 (38-126) U/L Total Protein 8.5 H (6.3-8.2) g/dL Albumin 4.1 (3.5-5.0) g/dL Urine Color Yellow Urine Appearance Turbid (Clear) Urine pH 8.5 H (5.0-8.0) Ur Specific [place] 1.012 (1.001-1.035) Urine Protein 3+ H (Negative) Urine Glucose (UA) Negative (Negative) Urine Ketones Negative (Negative) Urine Blood Small H (Negative) Urine Nitrite Negative (Negative) Urine Bilirubin Negative (Negative) Urine Urobilinogen <2.0 (<2.0) mg/dL Ur Leukocyte Esterase Large H (Negative) Urine RBC 82 H (0-5) /hpf Urine WBC >182 H (0-5) /hpf Urine WBC Clumps Few H (None) /hpf Ur Squamous Epith Cells 1 (0-4) /hpf Urine Bacteria Moderate H (None) /hpf Urine Mucus Occasional H (None) /hpf Disposition Clinical Impression: Leukocytosis, UTI (urinary tract infection) Disposition: HOME SELF-CARE Condition: Stable Instructions (If sedation given, give patient instructions): Urinary Tract Infection in Men (ED) Additional Instructions: Please return to the nearest emergency department symptoms worsen or persist Is patient prescribed a controlled substance at d/c from ED?: No Referrals: Jannette Sam MD [Primary Care Provider] - 1-2 days Time of Disposition: 03:24
[2023-02-02 03:48] VITALS: BP 128/53; PULSE 106
== END 2023-02-02 03:44 | disposition home or self-care (01) ==
LOC: EC 00:28
DX: N39.0 Urinary tract infection, site not specified (principal); T83.091A Other mechanical complication of indwelling urethral catheter, initial encounter; D72.829 Elevated white blood cell count, unspecified; E11.9 Type 2 diabetes mellitus without complications; F17.290 Nicotine dependence, other tobacco product, uncomplicated; F12.90 Cannabis use, unspecified, uncomplicated; Z79.4 Long term (current) use of insulin; Z79.84 Long term (current) use of oral hypoglycemic drugs
CPT/HCPCS: 36415; 51798; 80053; 81001; 85025; 99284

== ENCOUNTER 2023-04-07 22:03 | Emergency (ER) | payer OTHER ==
[2023-04-07 22:52] VITALS: TEMP 98
[2023-04-08] MEDS ORDERED: LIDOCAINE 2% URO-JET JELLY 5 ML KIT URETHRAL ONE ×2 (00:41→01:27)
[2023-04-08 00:53] VITALS: RESP 20
[2023-04-08 01:56] LABS: Appearance,Urine Turbid (Clear); Bacteria,Urine Many /hpf; Bilirubin,Urine Negative (Negative); Blood,Urine Large (Negative); Color,Urine Red; Glucose,Urine (UA) Negative (Negative); Ketones,Urine Negative (Negative); Leukocyte Esterase,Urine Large (Negative); Mucus,Urine Rare /hpf; Nitrite,Urine Negative (Negative); Protein,Urine 3+ (Negative); RBC,Urine >182 /hpf (0-5); Specific Gravity,Urine 1.018 (1.001-1.035); Urobilinogen,Urine <2.0 mg/dL (<2.0); WBC,Urine >182 /hpf (0-5)
--- NOTE | 2023-04-08 02:42 | US ---
EXAM: US Scrotum CLINICAL HISTORY: ITS.REASON US Reason: testicular induration TECHNIQUE: Real-time ultrasound of the scrotum with color Doppler and image documentation. COMPARISON: No previous studies. FINDINGS: Right testicle: The right testicle measures 3.2 x 1.2 x 1.9 cm. Flow to both testicles noted. No torsion. Left testicle: The left testicle measures 3.0 x 1.6 x 2.1 cm. Epididymides: The right epididymis measures 0.6 cm. The left epididymis measures 0.7 cm. A 0.4 cm left epididymal cyst versus spermatocele is noted. Scrotum: Unremarkable. No hydroceles. IMPRESSION: 1. No intrinsic testicular abnormalities. 2. Flow to both testicles noted. 3. Left epididymal cyst versus spermatocele.
--- NOTE | 2023-04-08 02:52 | ED ---
Male Urogenital HPI <PeggyWilliam - Last Filed: 04/08/23 02:56> - General Source: patient Mode of arrival: ambulatory Limitations: no limitations <Alisson Ram - Last Filed: 04/08/23 04:07> - General Chief complaint: Urogenital Stated complaint: unable to urinate Time Seen by Provider: 04/07/23 22:55 - History of Present Illness Initial comments: 32-year-old male with history of urinary retention presenting with chief complaint of urinary retention since today at 3 AM. Patient states that he was unable to follow up with urology after his last visit in which a Dai catheter was initiated. They removed the catheter because it had been in for a month and patient has not been able to urinate since. He is beginning to have pressure over the bladder. Patient states he also noticed that there was a firm area between the testicles today. No testicular pain or swelling. No fevers or chills. No nausea or vomiting. No flank pain. (Alisson Ram) - Related Data Home Medications Medication Instructions Recorded Confirmed Atorvastatin [Lipitor] 40 mg PO DAILY 02/14/22 02/14/22 Ergocalciferol [Vitamin D2 (1250 1,250 mcg PO Q7D 02/14/22 02/14/22 Mcg = 89581 Iu)] Ferrous Sulfate [Iron (65 MG 325 mg PO DAILY 02/14/22 02/14/22 Elemental)] Glimepiride [Amaryl] 2 mg PO DAILY 02/14/22 02/14/22 Insulin Degludec [Tresiba 10 units SQ DAILY 02/14/22 02/14/22 Flextouch U-100 Pen] Metoprolol Succinate (ER) [Toprol 25 mg PO DAILY 02/14/22 02/14/22 XL] Semaglutide [Rybelsus] 3 mg PO DAILY 02/14/22 02/14/22 lisinopriL [Zestril] 20 mg PO DAILY 02/14/22 02/14/22 metFORMIN HCL [Glucophage] 1,000 mg PO BID 02/14/22 02/14/22 Previous Rx's Medication Instructions Recorded Amoxic-Pot Clav 875-125Mg 1 tab PO Q12HR 14 Days #28 tab 02/18/22 [Augmentin 875-125] Ciprofloxacin HCl [Cipro] 500 mg PO Q12HR 14 Days #28 tab 02/18/22 Cephalexin [Keflex] 500 mg PO Q6HR 10 Days #40 cap 01/18/23 Cefpodoxime Proxetil [Vantin] 200 mg PO Q12HR 10 Days #20 tab 01/26/23 Cefpodoxime Proxetil [Vantin] 200 mg PO Q12HR #20 tab 02/01/23 Sulfamethox-Tmp 800-160Mg [Bactrim 1 tab PO Q12HR 7 Days #14 tab 04/08/23 DS 800-160 mg] Allergies Allergy/AdvReac Type Severity Reaction Status Date / Time No Known Allergies Allergy Verified 04/07/23 22:48 Review of Systems ROS Other: All systems not noted in ROS Statement are negative. <William Woods - Last Filed: 04/08/23 02:56> ROS Other: All systems not noted in ROS Statement are negative. <Alisson Ram - Last Filed: 04/08/23 04:07> ROS Statement: Those systems with pertinent positive or pertinent negative responses have been documented in the HPI. Past Medical History Past Medical History: Diabetes Mellitus Additional Past Medical History / Comment(s): club foot, spinal fibida, hydr ocephalus, incontinent History of Any Multi-Drug Resistant Organisms: MRSA Date of last positivie culture/infection: 2015 MDRO Source:: buttocks Past Surgical History: Back Surgery, Joint Replacement Additional Past Surgical History / Comment(s): shunt , left hip, colostomy Past Anesthesia/Blood Transfusion Reactions: No Reported Reaction Past Psychological History: No Psychological Hx Reported Smoking Status: Vaper Past Alcohol Use History: None Reported Past Drug Use History: Marijuana - Past Family History Mother Family Medical History: Blood Disorder Additional Family Medical History / Comment(s): Mother is living and currently age 42. States receives blood transfusions Father History Unknown: Yes Additional Family Medical History / Comment(s): Father at age 50 from unknown cause family Additional Family Medical History / Comment(s): no report of CAD <Alisson Ram - Last Filed: 04/08/23 04:07> General Exam Limitations: no limitations General appearance: alert, in no apparent distress Head exam: Present: atraumatic, normocephalic, normal inspection Eye exam: Present: normal appearance, EOMI Neck exam: Present: normal inspection Respiratory exam: Absent: respiratory distress GI/Abdominal exam: Present: soft. Absent: distended, tenderness, guarding, rebound, rigid Neurological exam: Present: alert, oriented X3 Psychiatric exam: Present: normal affect, normal mood Skin exam: Present: warm, dry, intact, normal color. Absent: rash <Alisson Ram - Last Filed: 04/08/23 04:07> Course Vital Signs 04/07/23 04/08/23 04/08/23 22:45 00:48 03:44 Temperature 98.0 F Pulse Rate 150 H 133 H 112 H Respiratory 17 20 20 Rate Blood Pressure 125/71 127/90 132/83 O2 Sat by Pulse 98 96 97 Oximetry Procedures - Catheter Insertion (Urinary) Indications: to alleviate urinary retention Preparation: Povidone-Iodine Type of Catheter Inserted: Dai Catheter Balloon Size (mLs): 10 Topical Anesthesia Used: Yes Results: successfully catheterized-immediate flow, urine sent for UA/ C&S Patient Tolerated Procedure: well, no complications Complications: none <William Woods - Last Filed: 04/08/23 02:56> Medical Decision Making <Alisson Ram - Last Filed: 04/08/23 04:07> - Medical Decision Making Was pt. sent in by a medical professional or institution (LATRICE Serrato, [employer] PAYABLE BOOKKEEPER, urgent care, hospital, or snf...) When possible be specific @ -No Did you speak to anyone other than the patient for history (EMS, parent, family, police, friend...)? What history was obtained from this source @ -No Did you review nursing and triage notes (agree or disagree)? Why? @ -I reviewed and agree with nursing and triage notes Were old charts reviewed (outside hosp., previous admission, EMS record, old EKG, old radiological studies, urgent care reports/EKG's, snf records)? Report findings @ -No old charts were reviewed Differential Diagnosis (chest pain, altered mental status, abdominal pain women, abdominal pain men, vaginal bleeding, weakness, fever, dyspnea, syncope, headache, dizziness, GI bleed, back pain, seizure, CVA, palpatations, mental health, musculoskeletal)? @ -Differential includes kidney stone, prostate enlargement, malignancy, this is not an all inclusive list EKG interpreted by me (3pts min.). @ -As above X-rays interpreted by me (1pt min.). @ -None done CT interpreted by me (1pt min.). @ -None done U/S interpreted by me (1pt. min.). @ -Scrotal ultrasound shows no intrinsic testicular abnormalities. Flow to both testicles is noted. Left epididymal cyst versus spermatocele. What testing was considered but not performed or refused? (CT, X-rays, U/S, labs)? Why? @ -None What meds were considered but not given or refused? Why? @ -None Did you discuss the management of the patient with other professionals (professionals i.e. , PA, ACCOUNTS PAYABLE BOOKKEEPER, lab, RT, psych nurse, social work instructor, draw frame operator, teacher, photographic intelligence officer, caser)? Give summary @ -No Was smoking cessation discussed for >3mins.? @ -No Was critical care preformed (if so, how long)? @ -No Were there social determinants of health that impacted care today? How? (Homelessness, low income, unemployed, alcoholism, drug addiction, transportation, low edu. Level, literacy, decrease access to med. care, snf, rehab)? @ -No Was there de-escalation of care discussed even if they declined (Discuss DNR or withdrawal of care, Hospice)? DNR status @ -No What co-morbidities impacted this encounter? (DM, HTN, Smoking, COPD, CAD, Cancer, CVA, ARF, Chemo, Hep., AIDS, mental health diagnosis, sleep apnea, morbid obesity)? @ -None Was patient admitted / discharged? Hospital course, mention meds given and route, prescriptions, significant lab abnormalities, going to OR and other pertinent info. @ -32-year-old male presenting with chief complaint of urinary retention. This started after the family removed his Dai catheter today. History and physical exam are conducted. New Dai catheter was initiated. Urine shows signs of infection, it was grossly turbid upon draining scrotal ultrasound is negative. Patient is started on Bactrim and urine culture is sent home. Follow-up with urology. Follow-up with PCP. Report back to ER with any new or worsening symptoms. Discussed return parameters and answered all questions. Patient conveyed verbal understanding and agreed to the plan. I discussed this case in detail with my attending Dr. Woods Undiagnosed new problem with uncertain prognosis? @ -No Drug Therapy requiring intensive monitoring for toxicity (Heparin, Nitro, Insulin, Cardizem)? @ -No Were any procedures done? @ -No Diagnosis/symptom? @ -Urinary retention, UTI Acute, or Chronic, or Acute on Chronic? @ -Acute Uncomplicated (without systemic symptoms) or Complicated (systemic symptoms)? @ -Uncomplicated Side effects of treatment? @ -No Exacerbation, Progression, or Severe Exacerbation? @ -No Poses a threat to life or bodily function? How? (Chest pain, [place], [place], pneumonia, PE, COPD, DKA, ARF, appy, cholecystitis, CVA, Diverticulitis, Homicidal, Suicidal, threat to staff... and all critical care pts) @ -No (Alisson Ram) - Lab Data Lab Results 04/08/23 Range/Units 01:44 Urine Color Red Urine Appearance Turbid (Clear) Urine pH 8.0 (5.0-8.0) Ur Specific [place] 1.018 (1.001-1.035) Urine Protein 3+ H (Negative) Urine Glucose (UA) Negative (Negative) Urine Ketones Negative (Negative) Urine Blood Large H (Negative) Urine Nitrite Negative (Negative) Urine Bilirubin Negative (Negative) Urine Urobilinogen <2.0 (<2.0) mg/dL Ur Leukocyte Esterase Large H (Negative) Urine RBC >182 H (0-5) /hpf Urine WBC >182 H (0-5) /hpf Urine WBC Clumps Many H (None) /hpf Urine Bacteria Many H (None) /hpf Urine Mucus Rare H (None) /hpf Disposition <William Woods - Last Filed: 04/08/23 02:56> Is patient prescribed a controlled substance at d/c from ED?: No Time of Disposition: 02:50 <Alisson Ram - Last Filed: 04/08/23 04:07> Clinical Impression: UTI (urinary tract infection), Urinary retention Disposition: HOME SELF-CARE Condition: Good Instructions (If sedation given, give patient instructions): Urinary Retention in Men (ED), Urinary Tract Infection in Men (ED) Additional Instructions: Follow-up with PCP and urology. Report back to ER with any new or worsening symptoms. Prescriptions: Sulfamethox-Tmp 800-160Mg [Bactrim DS 800-160 mg] 1 tab PO Q12HR 7 Days #14 tab Referrals: Jannette Sam MD [Primary Care Provider] - 1-2 days
[2023-04-08 04:04] VITALS: BP 132/83; PULSE 112
== END 2023-04-08 03:45 | disposition home or self-care (01) ==
LOC: EC 22:03
DX: N39.0 Urinary tract infection, site not specified (principal); E11.9 Type 2 diabetes mellitus without complications; F17.290 Nicotine dependence, other tobacco product, uncomplicated; F12.90 Cannabis use, unspecified, uncomplicated; Z79.84 Long term (current) use of oral hypoglycemic drugs; Z79.4 Long term (current) use of insulin
CPT/HCPCS: 51702; 51798; 76870; 81001; 87086; 93975; 99284

== ENCOUNTER 2023-04-12 00:01 | Emergency (ER) | payer OTHER ==
[2023-04-12] MEDS ORDERED: LIDOCAINE 2% URO-JET JELLY 5 ML KIT URETHRAL ONE (02:52)
--- NOTE | 2023-04-12 03:06 | ED ---
General Adult HPI - General Chief complaint: Urogenital Stated complaint: Catheter Malfunction,Urine Retention,Kidney Stones Time Seen by Provider: 04/12/23 02:40 Source: patient, RN notes reviewed, old records reviewed Mode of arrival: wheelchair Limitations: no limitations - History of Present Illness Initial comments: Patient is a 32-year-old male with past medical history remarkable for recurrent kidney stones with chronic indwelling Cooney catheter, diabetes. Presents emergency department after his Cooney catheter fell out. States somehow the b alloon malfunctioned and Cooney catheter came out on its own today. Has not spontaneously urinated since. This has been an issue in the past. Presents for further evaluation. Last had Cooney catheter replaced on 04/07/2023 due to similar complaints. Patient has no other acute complaints at this time other than feeling like he needs to urinate. Has been unable to follow up with urology but states "we are working on it." Presents for further evaluation at this time. - Related Data Home Medications Medication Instructions Recorded Confirmed Atorvastatin [Lipitor] 40 mg PO DAILY 02/14/22 02/14/22 Ergocalciferol [Vitamin D2 (1250 1,250 mcg PO Q7D 02/14/22 02/14/22 Mcg = 95198 Iu)] Ferrous Sulfate [Iron (65 MG 325 mg PO DAILY 02/14/22 02/14/22 Elemental)] Glimepiride [Amaryl] 2 mg PO DAILY 02/14/22 02/14/22 Insulin Degludec [Tresiba 10 units SQ DAILY 02/14/22 02/14/22 Flextouch U-100 Pen] Metoprolol Succinate (ER) [Toprol 25 mg PO DAILY 02/14/22 02/14/22 XL] Semaglutide [Rybelsus] 3 mg PO DAILY 02/14/22 02/14/22 lisinopriL [Zestril] 20 mg PO DAILY 02/14/22 02/14/22 metFORMIN HCL [Glucophage] 1,000 mg PO BID 02/14/22 02/14/22 Previous Rx's Medication Instructions Recorded Amoxic-Pot Clav 875-125Mg 1 tab PO Q12HR 14 Days #28 tab 02/18/22 [Augmentin 875-125] Ciprofloxacin HCl [Cipro] 500 mg PO Q12HR 14 Days #28 tab 02/18/22 Cephalexin [Keflex] 500 mg PO Q6HR 10 Days #40 cap 01/18/23 Cefpodoxime Proxetil [Vantin] 200 mg PO Q12HR 10 Days #20 tab 01/26/23 Cefpodoxime Proxetil [Vantin] 200 mg PO Q12HR #20 tab 02/01/23 Sulfamethox-Tmp 800-160Mg [Bactrim 1 tab PO Q12HR 7 Days #14 tab 04/08/23 DS 800-160 mg] Ciprofloxacin HCl [Cipro] 500 mg PO Q12HR 7 Days #14 tab 04/12/23 Allergies Allergy/AdvReac Type Severity Reaction Status Date / Time No Known Allergies Allergy Verified 04/07/23 22:48 Review of Systems ROS Statement: Those systems with pertinent positive or pertinent negative responses have been documented in the HPI. Review of Systems: CONST: Denies fever EYES: Denies blurry vision ENT: Denies nasal congestion C/V: Denies Chest pain RESP: Denies shortness of breath GI: Denies abdominal pain : Endorses fully catheter accidental removal, bladder distention SKIN: Denies rash. MSK: Denies joint pain. NEURO: Denies headache ROS Other: All systems not noted in ROS Statement are negative. Past Medical History Past Medical History: Diabetes Mellitus Additional Past Medical History / Comment(s): club foot, spinal fibida, hydrocephalus, incontinent History of Any Multi-Drug Resistant Organisms: MRSA Date of last positivie culture/infection: 2015 MDRO Source:: buttocks Past Surgical History: Back Surgery, Joint Replacement Additional Past Surgical History / Comment(s): shunt , left hip, colostomy Past Anesthesia/Blood Transfusion Reactions: No Reported Reaction Past Psychological History: No Psychological Hx Reported Smoking Status: Vaper Past Alcohol Use History: None Reported Past Drug Use History: Marijuana - Past Family History Mother Family Medical History: Blood Disorder Additional Family Medical History / Comment(s): Mother is living and currently age 42. States receives blood transfusions Father History Unknown: Yes Additional Family Medical History / Comment(s): Father at age 50 from unknown cause family Additional Family Medical History / Comment(s): no report of CAD General Exam - General Exam Comments Initial Comments: General: Appears in mild to moderate distress secondary to Cooney catheter malfunction and bladder distention. HEAD: Normal with no signs of head trauma. EYES: PERRLA, EOMI, conjunctiva normal, no discharge. ENT: Hearing grossly intact, normal oropharynx. RESPIRATORY: Clear breath sounds bilaterally. No wheezes, rales, or rhonchi. C/V: Regular rate and rhythm. S1 and S2 auscultated, peripheral pulses 2+ and intact throughout ABD: Abdomen is soft, with mild suprapubic distention likely secondary to urinary retention secondary to Cooney catheter accidental removal. No guarding. No rebound tenderness. No peritoneal signs.Penile head is findings consistent with chronic Cooney catheter. No colostomy bag present is patient states that he was "in a bedoya." Patient just has padding covering it. EXT: Normal range of motion, no obvious deformity SKIN: No rashes or lesions observed on exposed skin. NEURO: Alert and oriented 4. Limitations: no limitations Course Vital Signs 04/12/23 04/12/23 00:03 02:32 Pulse Rate 147 H 111 H Respiratory 22 20 Rate Blood Pressure 149/78 168/78 O2 Sat by Pulse 96 100 Oximetry Medical Decision Making - Medical Decision Making Was pt. sent in by a medical professional or institution (, PA, POLICY AND PLANNING MANAGER, urgent care, hospital, or detention...) When possible be specific @ -No Did you speak to anyone other than the patient for history (EMS, parent, family, police, friend...)? What history was obtained from this source @ -No Did you review nursing and triage notes (agree or disagree)? Why? @ -I reviewed and agree with nursing and triage notes Were old charts reviewed (outside hosp., previous admission, EMS record, old EKG, old radiological studies, urgent care reports/EKG's, detention records)? Report findings @ -Old charts reviewed Differential Diagnosis (chest pain, altered mental status, abdominal pain women, abdominal pain men, vaginal bleeding, weakness, fever, dyspnea, syncope, headache, dizziness, GI bleed, back pain, seizure, CVA, palpatations, mental health, musculoskeletal)? @ -Urinary retention, Cooney catheter malfunction, UTI. This list is not always inclusive. EKG interpreted by me (3pts min.). @ -None done X-rays interpreted by me (1pt min.). @ -None done CT interpreted by me (1pt min.). @ -None done U/S interpreted by me (1pt. min.). @ -None done What testing was considered but not performed or refused? (CT, X-rays, U/S, labs)? Why? @ -None What meds were considered but not given or refused? Why? @ -None Did you discuss the management of the patient with other professionals (professionals i.e. , PA, POLICY AND PLANNING MANAGER, lab, RT, psych nurse, social work assistant, roof truss machine tender, teacher, correctional officer sergeant, transplant case manager)? Give summary @ -No Was smoking cessation discussed for >3mins.? @ -No Was critical care preformed (if so, how long)? @ -No Were there social determinants of health that impacted care today? How? (Homelessness, low income, unemployed, alcoholism, drug addiction, transportation, low edu. Level, literacy, decrease access to med. care, senior living, rehab)? @ -No Was there de-escalation of care discussed even if they declined (Discuss DNR or withdrawal of care, Hospice)? DNR status @ -No What co-morbidities impacted this encounter? (DM, HTN, Smoking, COPD, CAD, Cancer, CVA, ARF, Chemo, Hep., AIDS, mental health diagnosis, sleep apnea, morbid obesity)? @ -None Was patient admitted / discharged? Hospital course, mention meds given and route, prescriptions, significant lab abnormalities, going to OR and other pertinent info. @ -Based on the patient's presentation and physical exam, I'm concerned for urinary retention secondary to accidental remarkable cooney catheter. States there is no traumatic removal but the baloon seems to have broke and therefore cooney catheter fell out. Bladder scan shows patient has retaining 700 mL of urine. We will obtain a urinalysis once a Cooney catheter is placed. Patient in agreement this plan. Patient is tachycardic but I do suspect this is all sec ondary to retained urine and Cooney catheter malfunction. After some difficulty, nursing staff was eventually able to place Cooney catheter. Patient had relief with urine output. Urine returned positive for UTI, which is expected considering his history. Patient was prescribed Bactrim his hip one day of taking this medication. Has a history of polymicrobial infections including pseudomonas and therefore patient also started on ciprofloxacin here in the department. Recommended he complete the Bactrim course as well. He was in agreement this plan. He would like to go home at thi s time. Recommended follow-up with urology. He was in agreement this plan. Strict return precautions discussed. I will provide the patient with a prescription for ciprofloxacin. I instructed the patient to follow up with their PCP in the next 1-3 days. I provided contact information for follow up with urology. I explained that the patient should return to the emergency department if they experience any worsening symptoms. Strict return precautions were discussed with the patient. The patient expressed understanding of these instructions. I answered all questions that the patient had. The patient was discharged home in good condition with their prescriptions and follow up information. Undiagnosed new problem with uncertain prognosis? @ -No Drug Therapy requiring intensive monitoring for toxicity (Heparin, Nitro, Insulin, Cardizem)? @ -No Were any procedures done? @ -No Diagnosis/symptom? @ -Cooney catheter complication, UTI Acute, or Chronic, or Acute on Chronic? @ -Acute Uncomplicated (without systemic symptoms) or Complicated (systemic symptoms)? @ -complicated Side effects of treatment? @ -No Exacerbation, Progression, or Severe Exacerbation? @ -No Poses a threat to life or bodily function? How? (Chest pain, USA, MD, pneumonia, PE, COPD, DKA, ARF, appy, cholecystitis, CVA, Diverticulitis, Homicidal, Suicidal, threat to staff... and all critical care pts) @ -Unlikely - Lab Data Lab Results 04/12/23 Range/Units 03:40 Urine Color Dark Yellow Urine Appearance Turbid (Clear) Urine pH 8.5 H (5.0-8.0) Ur Specific [place] 1.025 (1.001-1.035) Urine Protein 3+ H (Negative) Urine Glucose (UA) Negative (Negative) Urine Ketones Negative (Negative) Urine Blood Large H (Negative) Urine Nitrite Negative (Negative) Urine Bilirubin Negative (Negative) Urine Urobilinogen 0.2 (<2.0) mg/dL Ur Leukocyte Esterase Large H (Negative) Urine RBC >182 H (0-5) /hpf Urine WBC >182 H (0-5) /hpf Ur Squamous Epith Cells 3 (0-4) /hpf Triple Phos Crystals Few H (None) /hpf Amorphous Sediment Rare H (None) /hpf Urine Bacteria Many H (None) /hpf Hyaline Casts 99 H (0-2) /lpf Disposition Clinical Impression: Cooney catheter problem, UTI (urinary tract infection) Disposition: HOME SELF-CARE Condition: Good Instructions (If sedation given, give patient instructions): Urinary Tract Infection in Men (ED), Cooney Catheter Placement and Care (ED) Prescriptions: Ciprofloxacin HCl [Cipro] 500 mg PO Q12HR 7 Days #14 tab Is patient prescribed a controlled substance at d/c from ED?: No Referrals: Jannette Sam MD [Primary Care Provider] - 1-2 days Aman Fields MD [STAFF PHYSICIAN] - 1-2 days Time of Disposition: 04:38
[2023-04-12] MEDS ORDERED: ONDANSETRON ODT 4 MG TAB PO STA (04:26)
[2023-04-12 04:33] LABS: Amorphous Sediment,Urine Rare /hpf; Bacteria,Urine Many /hpf; Hyaline Casts,Urine 99 /lpf (0-2); RBC,Urine >182 /hpf (0-5); Squamous Epithelial Cell,Urine 3 /hpf (0-4); Triple Phosphate Crystal,Urine Few /hpf; WBC,Urine >182 /hpf (0-5)
[2023-04-12] MEDS ORDERED: CIPROFLOXACIN HCL 500 MG TAB PO STA (04:45)
[2023-04-12 04:46] LABS: Appearance,Urine Turbid (Clear); Color,Urine Dark Yellow; PH, Urine 8.5 (5.0-8.0); Protein,Urine 3+ (Negative); Specific Gravity,Urine 1.025 (1.001-1.035)
[2023-04-12 04:47] LABS: Bilirubin,Urine Negative (Negative); Blood,Urine Large (Negative); Glucose,Urine (UA) Negative (Negative); Ketones,Urine Negative (Negative); Leukocyte Esterase,Urine Large (Negative); Nitrite,Urine Negative (Negative); Urobilinogen,Urine 0.2 mg/dL (<2.0)
[2023-04-12 05:11] VITALS: BP 144/74; PULSE 95; RESP 18; TEMP 98.7
== END 2023-04-12 05:16 | disposition home or self-care (01) ==
LOC: EC 00:01
DX: T83.098A Other mechanical complication of other urinary catheter, initial encounter (principal); E11.9 Type 2 diabetes mellitus without complications; F17.290 Nicotine dependence, other tobacco product, uncomplicated; F12.90 Cannabis use, unspecified, uncomplicated; Z79.4 Long term (current) use of insulin; Z79.84 Long term (current) use of oral hypoglycemic drugs
CPT/HCPCS: 51702; 51798; 81001; 87086; 99284

== ENCOUNTER 2023-09-07 16:48 | Emergency (ER) | payer OTHER ==
--- NOTE | 2023-09-07 17:26 | ED ---
Male Urogenital HPI - General Source: patient, RN notes reviewed Mode of arrival: wheelchair Limitations: no limitations <Debbie Maki - Last Filed: 09/07/23 17:25> <William Woods - Last Filed: 09/08/23 00:27> - General Source: patient, RN notes reviewed, old records reviewed <Fazal Wang - Last Filed: 09/10/23 20:51> - General Chief complaint: Urogenital Stated complaint: urinating blood Time Seen by Provider: 09/07/23 17:05 - History of Present Illness Initial comments: Quick notethis is a 32-year-old male with a history of spina bifida presents the emergency department chief complaint of hematuria, a foul odor in the urine and increased frequency and urgency. Patient states that his symptoms started today and has not noticed any passage of clots from his urine. He denies back pain, flank pain, abdominal pain, nausea, vomiting. Patient states that he is incontinent. History of nephrolithiasis. (Debbie Maki) Patient is a 32-year-old male who presents emergency department complaining of of dysuria and hematuria. Has a history of spina bifida and paraplegia. Has noticed blood in his urine as well as foul-smelling for a few days. No obvious abdominal pain. Does have a colostomy but does not use the bags. Has no other acute complaints at this time. Has a history of kidney stones. Presents for further evaluation at this time. Patient originally seen as a quick note. Does have a history of UTIs. (Fazal Wang) - Related Data Home Medications Medication Instructions Recorded Confirmed Atorvastatin [Lipitor] 40 mg PO DAILY 02/14/22 02/14/22 Ergocalciferol [Vitamin D2 (1250 1,250 mcg PO Q7D 02/14/22 02/14/22 Mcg = 09950 Iu)] Ferrous Sulfate [Iron (65 MG 325 mg PO DAILY 02/14/22 02/14/22 Elemental)] Glimepiride [Amaryl] 2 mg PO DAILY 02/14/22 02/14/22 Insulin Degludec [Tresiba 10 units SQ DAILY 02/14/22 02/14/22 Flextouch U-100 Pen] Metoprolol Succinate (ER) [Toprol 25 mg PO DAILY 02/14/22 02/14/22 XL] Semaglutide [Rybelsus] 3 mg PO DAILY 02/14/22 02/14/22 lisinopriL [Zestril] 20 mg PO DAILY 02/14/22 02/14/22 metFORMIN HCL [Glucophage] 1,000 mg PO BID 02/14/22 02/14/22 Previous Rx's Medication Instructions Recorded Amoxic-Pot Clav 875-125Mg 1 tab PO Q12HR 14 Days #28 tab 02/18/22 [Augmentin 875-125] Ciprofloxacin HCl [Cipro] 500 mg PO Q12HR 14 Days #28 tab 02/18/22 Cephalexin [Keflex] 500 mg PO Q6HR 10 Days #40 cap 01/18/23 Cefpodoxime Proxetil [Vantin] 200 mg PO Q12HR 10 Days #20 tab 01/26/23 Cefpodoxime Proxetil [Vantin] 200 mg PO Q12HR #20 tab 02/01/23 Sulfamethox-Tmp 800-160Mg [Bactrim 1 tab PO Q12HR 7 Days #14 tab 04/08/23 DS 800-160 mg] Ciprofloxacin HCl [Cipro] 500 mg PO Q12HR 7 Days #14 tab 04/12/23 Ciprofloxacin HCl [Cipro] 500 mg PO Q12HR 7 Days #14 tab 09/07/23 Allergies Allergy/AdvReac Type Severity Reaction Status Date / Time No Known Allergies Allergy Verified 09/07/23 17:13 Review of Systems ROS Other: All systems not noted in ROS Statement are negative. <Debbie Maki - Last Filed: 09/07/23 17:25> ROS Other: All systems not noted in ROS Statement are negative. <William Woods - Last Filed: 09/08/23 00:27> ROS Other: All systems not noted in ROS Statement are negative. <Fazal Wang - Last Filed: 09/10/23 20:51> ROS Statement: Those systems with pertinent positive or pertinent negative responses have been documented in the HPI. Review of Systems: CONST: Denies fever EYES: Denies blurry vision ENT: Denies nasal congestion C/V: Denies Chest pain RESP: Denies shortness of breath GI: Denies abdominal pain : Endorses increased urinary frequency, hematuria SKIN: Denies rash. MSK: Denies joint pain. NEURO: Denies headache (Fazal Wang) Past Medical History Past Medical History: Diabetes Mellitus Additional Past Medical History / Comment(s): club foot, spinal fibida, hydrocephalus, incontinent History of Any Multi-Drug Resistant Organisms: MRSA Date of last positivie culture/infection: 2015 MDRO Source:: buttocks Past Surgical History: Back Surgery, Joint Replacement Additional Past Surgical History / Comment(s): shunt , left hip, colostomy Past Anesthesia/Blood Transfusion Reactions: No Reported Reaction Past Psychological History: No Psychological Hx Reported Smoking Status: Vaper Past Alcohol Use History: None Reported Past Drug Use History: Marijuana - Past Family History Mother Family Medical History: Blood Disorder Additional Family Medical History / Comment(s): Mother is living and currently age 42. States receives blood transfusions Father History Unknown: Yes Additional Family Medical History / Comment(s): Father at age 50 from unknown cause family Additional Family Medical History / Comment(s): no report of CAD <Debbie Maki - Last Filed: 09/07/23 17:25> General Exam Limitations: no limitations <Debbie Maki - Last Filed: 09/07/23 17:25> <Fazal Wang - Last Filed: 09/10/23 20:51> - General Exam Comments Initial Comments: Visual Physical Exam Vital signs reviewed General: Well-appearing, nontoxic, no acute distress. Head: Normocephalic, atraumatic Eyes: PERRLA, EOMI ENT: Airway patent Chest: Nonlabored breathing Skin: No visual rash, normal skin tone Neuro: Alert and oriented 3 Musculoskeletal: No gross abnormalities (Debbie Maki) General: Appears in no acute distress. HEAD: Normal with no signs of head trauma. EYES: PERRLA, EOMI, conjunctiva normal, no discharge. ENT: Hearing grossly intact, normal oropharynx. RESPIRATORY: Clear breath sounds bilaterally. No wheezes, rales, or rhonchi. C/V: Regular rate and rhythm. S1 and S2 auscultated, ABD: Abd is soft, nontender, nondistended. Patient does have ostomy site in the left abdomen which appears within acceptable limits. EXT: Normal range of motion, no obvious deformity SKIN: No rashes or lesions observed on exposed skin. NEURO: Alert and oriented x 4. At baseline. (Fazal Wang) Course Vital Signs 09/07/23 09/07/23 09/08/23 17:11 21:00 00:45 Temperature 98.5 F 98.2 F Pulse Rate 72 112 H 124 H Respiratory 18 16 18 Rate Blood Pressure 165/122 146/77 125/64 O2 Sat by Pulse 97 97 95 Oximetry Medical Decision Making <Debbie Maki - Last Filed: 09/07/23 17:25> - Lab Data Result diagrams: 09/07/23 19:11 09/07/23 19:11 <William Woods - Last Filed: 09/08/23 00:27> - Lab Data Result diagrams: 09/07/23 19:11 09/07/23 19:11 <Fazal Wang - Last Filed: 09/10/23 20:51> - Medical Decision Making I completed the quick note portion of this chart signed Debbie Maki PA-C (Debbie Maki) Was patient admitted / discharged? Hospital course, mention meds given and route, prescriptions, significant lab abnormalities, going to OR and other pertinent info. @ -[This patient was signed out pending results of the CT scan for consideration of possible kidney stone. Nursing staff approached me and stated that the patient was wanting to leave. He had been waiting a number of hours for results. Dr. Wang had reviewed the CT but radiology had not. I discussed this with the patient he still wanted to go. He had been prescribed antibiotics and had received his first dose here. We discussed the appropriate further care and follow-up as well as return parameters and he still elected to go rather than wait for CT results. Undiagnosed new problem with uncertain prognosis? @ -[No] Drug Therapy requiring intensive monitoring for toxicity (Heparin, Nitro, Insulin, Cardizem)? @ -[No] Were any procedures done? @ -[No] Diagnosis/symptom? @ -[Acute urinary tract infection Acute, or Chronic, or Acute on Chronic? @ -[Acute Uncomplicated (without systemic symptoms) or Complicated (systemic symptoms)? @ -[Uncomplicated Side effects of treatment? @ -[No] Exacerbation, Progression, or Severe Exacerbation? @ -[No] Poses a threat to life or bodily function? How? (Chest pain, [place], [place], pneumonia, PE, COPD, DKA, ARF, appy, cholecystitis, CVA, Diverticulitis, Homicidal, Suicidal, threat to staff... and all critical care pts) @ -[There is low threat but requires further follow-up (William Woods) Was pt. sent in by a medical professional or institution (LATRICE Serrato, [employer], urgent care, hospital, or jail...) When possible be specific @ -No Did you speak to anyone other than the patient for history (EMS, parent, family, police, friend...)? What history was obtained from this source @ -No Did you review nursing and triage notes (agree or disagree)? Why? @ -I reviewed and agree with nursing and triage notes Were old charts reviewed (outside hosp., previous admission, EMS record, old EKG, old radiological studies, urgent care reports/EKG's, jail records)? Report findings @ -Old charts reviewed Differential Diagnosis (chest pain, altered mental status, abdominal pain women, abdominal pain men, vaginal bleeding, weakness, fever, dyspnea, syncope, headache, dizziness, GI bleed, back pain, seizure, CVA, palpatations, mental health, musculoskeletal)? @ -UTI, kidney stone, pyelonephritis, dehydration. This list is not all inclusive. EKG interpreted by me (3pts min.). @ -None done X-rays interpreted by me (1pt min.). @ -None done CT interpreted by me (1pt min.). @ -CT abdomen pelvis eventually returned and was unremarkable for any obvious acute intra-abdominal process. U/S interpreted by me (1pt. min.). @ -None done What testing was considered but not performed or refused? (CT, X-rays, U/S, labs)? Why? @ -None What meds were considered but not given or refused? Why? @ -None Did you discuss the management of the patient with other professionals (professionals i.e. LATRICE Serrato, [employer] W[employer]ST[employer]ER, lab, RT, psych nurse, social media specialist, perch mender, teacher, chemical instrumentation officer, caser in)? Give summary @ -No Was smoking cessation discussed for >3mins.? @ -No Was critical care preformed (if so, how long)? @ -No Were there social determinants of health that impacted care today? How? (Homelessness, low income, unemployed, alcoholism, drug addiction, transportation, low edu. Level, literacy, decrease access to med. care, group home, rehab)? @ -No Was there de-escalation of care discussed even if they declined (Discuss DNR or withdrawal of care, Hospice)? DNR status @ -No What co-morbidities impacted this encounter? (DM, HTN, Smoking, COPD, CAD, Cancer, CVA, ARF, Chemo, Hep., AIDS, mental health diagnosis, sleep apnea, morbid obesity)? @ -None Was patient admitted / discharged? Hospital course, mention meds given and route, prescriptions, significant lab abnormalities, going to OR and other p ertinent info. @ -Patient is a 32-year-old male who presents emergency department for over concern for UTI versus kidney stone versus pyelonephritis. Is a paraplegia. We will obtain basic labs and urine studies and obtain CT without contrast of the abdomen pelvis. Patient was in agreement this plan. Vital signs within acceptable limits. Laboratory studies remarkable for slight leukocytosis of 13. Kidney function within normal limits. Urinalysis remarkable for hematuria as well as infection. Culture sent.Patient given a dose of Rocephin. CT imaging still pending at this time. Patient signed out to Dr. Woods pending results of imaging. CT imaging eventually returned negative for any evidence of stone or other acute process. Was discharged home at that time by Dr. Woods. Undiagnosed new problem with uncertain prognosis? @ -No Drug Therapy requiring intensive monitoring for toxicity (Heparin, Nitro, Insulin, Cardizem)? @ -No Were any procedures done? @ -No Diagnosis/symptom? @ -UTI, hematuria Acute, or Chronic, or Acute on Chronic? @ -Acute Uncomplicated (without systemic symptoms) or Complicated (systemic symptoms)? @ -uncomplicated Side effects of treatment? @ -None Exacerbation, Progression, or Severe Exacerbation] @ -No Poses a threat to life or bodily function? @ -Unlikely (Fazal Wang) - Lab Data Lab Results 09/07/23 09/07/23 09/07/23 Range/Units 19:00 19:11 19:11 WBC 13.6 H (3.8-10.6) k/uL RBC 5.15 (4.30-5.90) m/uL Hgb 13.8 (13.0-17.5) gm/dL Hct 42.6 (39.0-53.0) % MCV 82.7 (80.0-100.0) fL MCH 26.8 (25.0-35.0) pg MCHC 32.4 (31.0-37.0) g/dL RDW 14.2 (11.5-15.5) % Plt Count 293 (150-450) k/uL MPV 7.6 Neutrophils % 75 % Lymphocytes % 17 % Monocytes % 5 % Eosinophils % 1 % Basophils % 1 % Neutrophils # 10.3 H (1.3-7.7) k/uL Lymphocytes # 2.3 (1.0-4.8) k/uL Monocytes # 0.7 (0-1.0) k/uL Eosinophils # 0.2 (0-0.7) k/uL Basophils # 0.1 (0-0.2) k/uL Sodium 137 (137-145) mmol/L Potassium 4.9 (3.5-5.1) mmol/L Chloride 103 (98-107) mmol/L Carbon Dioxide 29 (22-30) mmol/L Anion Gap 5 mmol/L BUN 21 H (9-20) mg/dL Creatinine 0.45 L (0.66-1.25) mg/dL Est GFR (CKD-EPI)AfAm >90 (>60 ml/min/1.73 sqM) Est GFR (CKD-EPI)NonAf >90 (>60 ml/min/1.73 sqM) Glucose 127 H (74-99) mg/dL Calcium 8.9 (8.4-10.2) mg/dL Total Bilirubin 0.7 (0.2-1.3) mg/dL AST 55 (17-59) U/L ALT 62 H (4-49) U/L Alkaline Phosphatase 69 (38-126) U/L Total Protein 8.3 H (6.3-8.2) g/dL Albumin 4.2 (3.5-5.0) g/dL Urine Color Light Yellow Urine Appearance Cloudy (Clear) Urine pH 6.5 (5.0-8.0) Ur Specific Wright 1.027 (1.001-1.035) Urine Protein 1+ H (Negative) Urine Glucose (UA) Negative (Negative) Urine Ketones Negative (Negative) Urine Blood Large H (Negative) Urine Nitrite Negative (Negative) Urine Bilirubin Negative (Negative) Urine Urobilinogen <2.0 (<2.0) mg/dL Ur Leukocyte Esterase Large H (Negative) Urine RBC >182 H (0-5) /hpf Urine WBC 116 H (0-5) /hpf Ur Squamous Epith Cells 2 (0-4) /hpf Urine Bacteria Occasional H (None) /hpf Urine Mucus Rare H (None) /hpf Disposition <Debbie Maki - Last Filed: 09/07/23 17:25> Is patient prescribed a controlled substance at d/c from ED?: No <William Woods - Last Filed: 09/08/23 00:27> <Fazal Wang - Last Filed: 09/10/23 20:51> Clinical Impression: Hematuria, UTI (urinary tract infection) Disposition: HOME SELF-CARE Condition: Good Instructions (If sedation given, give patient instructions): Urinary Tract Infection in Men (ED) Prescriptions: Ciprofloxacin HCl [Cipro] 500 mg PO Q12HR 7 Days #14 tab Referrals: Jannette Sam MD [Primary Care Provider] - 1-2 days
[2023-09-07 19:24] LABS: Basophils # (A) 0.1 k/uL (0-0.2); Basophils % (A) 1 %; Eosinophils # (A) 0.2 k/uL (0-0.7); Eosinophils % (A) 1 %; HCT 42.6 % (39.0-53.0); HGB 13.8 gm/dL (13.0-17.5); Lymphocytes # (A) 2.3 k/uL (1.0-4.8); Lymphocytes % (A) 17 %; MCH 26.8 pg (25.0-35.0); MCHC 32.4 g/dL (31.0-37.0); MCV 82.7 fL (80.0-100.0); Mean Platelet Volume 7.6; Monocytes # (A) 0.7 k/uL (0-1.0); Monocytes % (A) 5 %; Neutrophils # (A) 10.3 k/uL (1.3-7.7); Neutrophils % (A) 75 %; Platelet Count 293 k/uL (150-450); RBC 5.15 m/uL (4.30-5.90); RDW 14.2 % (11.5-15.5); WBC 13.6 k/uL (3.8-10.6)
[2023-09-07 19:27] LABS: Appearance,Urine Cloudy (Clear); Bacteria,Urine Occasional /hpf; Bilirubin,Urine Negative (Negative); Blood,Urine Large (Negative); Color,Urine Light Yellow; Glucose,Urine (UA) Negative (Negative); Ketones,Urine Negative (Negative); Leukocyte Esterase,Urine Large (Negative); Mucus,Urine Rare /hpf; Nitrite,Urine Negative (Negative); PH, Urine 6.5 (5.0-8.0); Protein,Urine 1+ (Negative); RBC,Urine >182 /hpf (0-5); Specific Gravity,Urine 1.027 (1.001-1.035); Squamous Epithelial Cell,Urine 2 /hpf (0-4); Urobilinogen,Urine <2.0 mg/dL (<2.0); WBC,Urine 116 /hpf (0-5)
[2023-09-07 19:34] LABS: ALT 62 U/L (4-49); African American GFR (CKD) >90 (>60 ml/min/1.73 sqM); Anion Gap 5 mmol/L; Blood Urea Nitrogen 21 mg/dL (9-20); Calcium 8.9 mg/dL (8.4-10.2); Carbon Dioxide 29 mmol/L (22-30); Chloride 103 mmol/L (98-107); Glucose 127 mg/dL (74-99); Non-African American GFR(CKD) >90 (>60 ml/min/1.73 sqM); Sodium 137 mmol/L (137-145); Total Bilirubin 0.7 mg/dL (0.2-1.3)
[2023-09-07 19:57] LABS: AST 55 U/L (17-59); Albumin 4.2 g/dL (3.5-5.0); Alkaline Phosphatase 69 U/L (38-126); Potassium 4.9 mmol/L (3.5-5.1); Total Protein 8.3 g/dL (6.3-8.2)
[2023-09-07] MEDS: cefTRIAXone IN SWFI 1,000 MG/10 ML SYRINGE IVP STA (23:44)
[2023-09-08 00:58] VITALS: BP 125/64; PULSE 124; RESP 18; TEMP 98.2
--- NOTE | 2023-09-08 01:22 | CT ---
EXAMINATION TYPE: CT abdomen pelvis wo con CT DLP: 1477.4 mGycm, Automated exposure control for dose reduction was used. DATE OF EXAM: 09/07/2023 8:49 PM COMPARISON: None. CLINICAL INDICATION:Male, 32 years old with history of abd pain; abd pain TECHNIQUE: Axial CT of the abdomen and pelvis. Sagittal and coronal reformats were created on a [employer] workstation. Contrast used: mL of , (none if empty) Oral contrast used: without Oral Contrast (none if empty) FINDINGS: LOWER CHEST: Mild linear atelectasis right lung base. Normal heart size. ABDOMEN LIVER: Mild steatosis. GALLBLADDER AND BILE DUCTS: Unremarkable gallbladder. No biliary ductal dilatation. PANCREAS: Unremarkable. SPLEEN: Unremarkable. ADRENAL GLANDS: Unremarkable. KIDNEYS AND URETERS: Kidneys show no evidence of hydronephrosis or visible renal calculus. The ureter s are unremarkable. PELVIS BLADDER: What appears to be the bladder is abnormally elongated anterior to posterior. REPRODUCTIVE: Prostate appears unremarkable. Severe chronic deformity of the pelvis is present with distortion of the normal anatomy. There is a large left lower quadrant hernia extending through the muscular wall, with a broad neck 5. 5 cm diameter, and into which protrudes fat, multiple small bowel loops, and a portion of colon from the distal transverse to distal descending segment, without evidence of obstruction. No inflammatory changes. ABDOMEN & PELVIS STOMACH AND BOWEL: Stomach and bowel are nondistended, there is no evidence of obstruction. Appendix not clearly seen. There is moderate stool in the right and proximal transverse colon, with relatively less continuing distally. PERITONEUM/RETROPERITONEUM: No evidence of pneumoperitoneum or free fluid. Catheter extends from ab ove in the anterior chest wall, enters through the anterior upper abdominal wall just right of midlin e before coursing around the stomach and eventually terminating adjacent to the left hepatic lobe; th is suggests a RETURNED MAT[employer]S INSPECTOR shunt most likely. VASCULATURE: Aorta and major branches are grossly unremarkable. No AAA. LYMPH NODES: No enlarged nodes by CT size criteria. SOFT TISSUE/ABDOMINAL WALL: No clearly acute abnormality is seen. There are bilateral irregular bandl víctor opacities extending from the skin surface deep to the ischial tuberosities, which could be chroni c sequela of decubitus ulcers. MUSCULOSKELETAL: Deformity and irregularity of the bony pelvis, could be sequela of previous traumati c injury or infection. Some may be developmental. There is an abnormal appearance of the bilateral hi ps, joints appear relatively shallow especially on the right and there is a flattened shape appearanc e of the femoral heads, most progressed on the right. No acute fracture is seen. IMPRESSION: 1. No evidence of urinary tract calculi or obstructive uropathy. 2. No evidence of bowel obstruction or free air. 3. Large body wall hernia in the left lower quadrant anteriorly, containing fat and loops of small vida wel and colon. No evidence of obstruction. 4. A multiplicity of additional chronic appearing findings in the abdomen and pelvis, as above.
== END 2023-09-08 00:49 | disposition home or self-care (01) ==
LOC: EC 16:48
DX: N39.0 Urinary tract infection, site not specified (principal); F17.290 Nicotine dependence, other tobacco product, uncomplicated; F12.90 Cannabis use, unspecified, uncomplicated
CPT/HCPCS: 99284; 96374; 36415; 80053; 85025; 81001; 87086; 87077; 87186; 74176; J0696

== ENCOUNTER 2023-10-27 14:31 | Inpatient (IN) | payer OTHER ==
[2023-10-27 14:50] LABS: Glucose,Whole Blood 398 mg/dL (70-110)
--- NOTE | 2023-10-27 16:34 | ED ---
Recheck HPI - General Chief Complaint: Recheck/Abnormal Lab/Rx Stated Complaint: high blood sugar, sent from PCP, type 2 diabetic Time Seen by Provider: 10/27/23 15:18 Source: patient, RN notes reviewed, old records reviewed Mode of arrival: wheelchair Limitations: no limitations - History of Present Illness Initial Comments: This is a 32-year-old male to the ER for abnormal lab values. Patient has known type 2 diabetes on insulin and presents today for evaluation of elevated blood sugar during outpatient laboratory testing. Patient was sent in for elevated blood sugar and he does admit to not taking care of his blood sugar recently. No recent infections cough congestion shortness of breath nausea vomiting or diarrhea, states has been noncompliant with medications MD Complaint: abnormal lab (Elevated blood sugar) -: days(s) Returns Today for: Called Because of Abnormal Lab/Test Symptoms Since Prior Visit: no new symptoms Context: called for abnormal lab result Associated Symptoms: none Treatments Prior to Arrival: other (0) - Related Data Home Medications Medication Instructions Recorded Confirmed Omeprazole 40 mg PO DIRECTED 10/27/23 10/27/23 Previous Rx's Medication Instructions Recorded Blood Sugar Diagnostic [Test 1 strip MISCELLANE AC-TID #90 strip 10/29/23 Strips] Insulin Aspart [NovoLOG Flexpen] 10 units SQ AC-TID #1 each 10/29/23 Insulin Glargine,Hum.rec.anlog 30 units SQ DAILY #1 each 10/29/23 [Lantus Solostar Pen] Allergies Allergy/AdvReac Type Severity Reaction Status Date / Time No Known Allergies Allergy Verified 10/27/23 17:14 Review of Systems ROS Statement: Those systems with pertinent positive or pertinent negative responses have been documented in the HPI. ROS Other: All systems not noted in ROS Statement are negative. Past Medical History Past Medical History: Diabetes Mellitus Additional Past Medical History / Comment(s): club foot, spinal fibida, hydrocephalus, incontinent History of Any Multi-Drug Resistant Organisms: MRSA Date of last positivie culture/infection: 2015 MDRO Source:: buttocks Past Surgical History: Back Surgery, Joint Replacement Additional Past Surgical History / Comment(s): shunt , left hip, colostomy Past Anesthesia/Blood Transfusion Reactions: No Reported Reaction Past Psychological History: No Psychological Hx Reported Smoking Status: Vaper Past Alcohol Use History: None Reported Past Drug Use History: Marijuana - Past Family History Mother Family Medical History: Blood Disorder Additional Family Medical History / Comment(s): Mother is living and currently age 42. States receives blood transfusions Father History Unknown: Yes Additional Family Medical History / Comment(s): Father at age 50 from unknown cause family Additional Family Medical History / Comment(s): no report of CAD General Exam Limitations: no limitations General appearance: alert, in no apparent distress Head exam: Present: atraumatic, normocephalic, normal inspection Eye exam: Present: normal appearance, PERRL, EOMI. Absent: scleral icterus, conjunctival injection, periorbital swelling ENT exam: Present: normal exam, mucous membranes moist Neck exam: Present: normal inspection. Absent: tenderness, meningismus, lymphadenopathy Respiratory exam: Present: normal lung sounds bilaterally. Absent: respiratory distress, wheezes, rales, rhonchi, stridor Cardiovascular Exam: Present: regular rate, normal rhythm, normal heart sounds. Absent: systolic murmur, diastolic murmur, rubs, gallop, clicks GI/Abdominal exam: Present: soft, normal bowel sounds. Absent: distended, tenderness, guarding, rebound, rigid Extremities exam: Present: normal inspection, full ROM, normal capillary refill. Absent: tenderness, pedal edema, joint swelling, calf tenderness Back exam: Present: normal inspection Neurological exam: Present: alert, oriented X3, CN II-XII intact Psychiatric exam: Present: normal affect, normal mood Skin exam: Present: warm, dry, intact, normal color. Absent: rash Course Vital Signs 10/27/23 10/27/23 10/27/23 14:48 19:05 20:00 Temperature 97.7 F Pulse Rate 107 H 67 79 Pulse Rate [ Real Estate Operations Manager ] Respiratory 20 18 18 Rate Blood Pressure 132/84 124/80 124/80 Blood Pressure [Left Arm] O2 Sat by Pulse 98 100 98 Oximetry 10/27/23 10/28/23 10/28/23 22:00 00:00 03:00 Temperature Pulse Rate 76 93 85 Pulse Rate [ Real Estate Operations Manager ] Respiratory 18 18 18 Rate Blood Pressure 147/87 138/75 125/78 Blood Pressure [Left Arm] O2 Sat by Pulse 97 98 98 Oximetry 10/28/23 10/28/23 10/28/23 06:13 09:00 13:00 Temperature Pulse Rate 98 81 81 Pulse Rate [ Real Estate Operations Manager ] Respiratory 18 18 16 Rate Blood Pressure 120/89 126/80 133/86 Blood Pressure [Left Arm] O2 Sat by Pulse 97 98 97 Oximetry 10/28/23 10/28/23 15:12 19:59 Temperature 98.3 F Pulse Rate 101 H Pulse Rate [ 72 Real Estate Operations Manager ] Respiratory 20 18 Rate Blood Pressure 112/65 Blood Pressure 124/54 [Left Arm] O2 Sat by Pulse 97 97 Oximetry - Reevaluation(s) Reevaluation #1: 10/27/23 17:05 Medical records reviewed Reevaluation #2: 10/27/23 17:05 Patient symptoms improved Reevaluation #3: 10/27/23 17:05 Patient informed of results questions answered Reevaluation #4: Was pt. sent in by a medical professional or institution (, [facility], [facility], urgent care, hospital, or halfway...) When possible be specific @ -no Did you speak to anyone other than the patient for history (EMS, parent, family, police, friend...)? What history was obtained from this source @ -no Did you review nursing and triage notes (agree or disagree)? Why? @ -agree Are old charts reviewed (outside hosp., previous admission, EMS record, old EKG, old radiological studies, urgent care reports/EKG's, halfway records)? Report findings @ -yes Differential Diagnosis (chest pain, altered mental status, abdominal pain women, abdominal pain men, vaginal bleeding, weakness, fever, dyspnea, syncope, headache, dizziness, GI bleed, back pain, seizure, CVA, palpatations, mental health, musculoskeletal)? @ -prior EKG interpreted by me (3pts min.). @ -no X-rays interpreted by me (1pt min.). @ -no CT interpreted by me (1pt min.). @ -no U/S interpreted by me (1pt. min.). @ -no What testing was considered but not performed or refused? (CT, X-rays, U/S, labs)? Why? @ -none What meds were considered but not given or refused? Why? @ -none Did you discuss the management of the patient with other professionals (professionals i.e. , [facility], [facility], lab, RT, psych nurse, criminal justice social worker, at risk paraprofessional, teacher, medical scientific officer, case management director)? Give summary @ -no Was smoking cessation discussed for >3mins.? @ -no Was critical care preformed (if so, how long)? @ -yes31 Were there social determinants of health that impacted care today? How? (Homelessness, low income, unemployed, alcoholism, drug addiction, transportation, low edu. Level, literacy, decrease access to med. care, half-way, rehab)? @ -none Was there de-escalation of care discussed even if they declined (Discuss DNR or withdrawal of care, Hospice)? DNR status @ -no What co-morbidities impacted this encounter? (DM, HTN, Smoking, COPD, CAD, Cancer, CVA, ARF, Chemo, Hep., AIDS, mental health diagnosis, sleep apnea, morbid obesity)? @ -none Was patient admitted / discharged? Hospital course, mention meds given and route, prescriptions, significant lab abnormalities, going to OR and other pertinent info. @ - 32 male to ER for evaluation of elevated blood sugar. Patient has significant blood sugar elevation noted here in the emergency department with symptoms and signs of DKA. Patient admitted for significant IV hydration and blood sugar monitoring and control, Admitted Undiagnosed new problem with uncertain prognosis? @ -no Drug Therapy requiring intensive monitoring for toxicity (Heparin, Nitro, Insulin, Cardizem)? @ -no Were any procedures done? @ -no Diagnosis/symptom? @ -DKA Acute, or Chronic, or Acute on Chronic? @ -Acute Uncomplicated (without systemic symptoms) or Complicated (systemic symptoms)? @ -Complicated Side effects of treatment? @ -no Exacerbation, Progression, or Severe Exacerbation? @ -exacerbation Poses a threat to life or bodily function? How? (Chest pain, USA, MD, pneumonia, PE, COPD, DKA, ARF, appy, cholecystitis, CVA, Diverticulitis, Homicidal, Suicidal, threat to staff... and all critical care pts) @ -yes DKA Reevaluation #5: Differential Weakness: Hypoglycemia, shock, sepsis, hyponatremia, anemia, infection, MD, ETOH, adverse medicine reaction, overdose, stroke, this is not meant to be an all-inclusive list. - Consultations Consultation #1: Spoke with sound who agrees to admit this patient Medical Decision Making - Medical Decision Making 32 male to ER for evaluation of elevated blood sugar. Patient has significant blood sugar elevation noted here in the emergency department with symptoms and signs of DKA. Patient admitted for significant IV hydration and blood sugar monitoring and control, - Lab Data Result diagrams: 10/28/23 12:00 10/29/23 06:19 Lab Results 10/27/23 10/27/23 10/27/23 Range/Units 14:48 17:02 17:02 WBC 6.9 (3.8-10.6) k/uL RBC 5.03 (4.30-5.90) m/uL Hgb 13.3 (13.0-17.5) gm/dL Hct 42.0 (39.0-53.0) % MCV 83.6 (80.0-100.0) fL MCH 26.5 (25.0-35.0) pg MCHC 31.7 (31.0-37.0) g/dL RDW 14.8 (11.5-15.5) % Plt Count 226 (150-450) k/uL MPV 8.6 Neutrophils % 62 % Lymphocytes % 27 % Monocytes % 6 % Eosinophils % 2 % Basophils % 1 % Neutrophils # 4.3 (1.3-7.7) k/uL Lymphocytes # 1.8 (1.0-4.8) k/uL Monocytes # 0.4 (0-1.0) k/uL Eosinophils # 0.1 (0-0.7) k/uL Basophils # 0.1 (0-0.2) k/uL Sodium (137-145) mmol/L Potassium (3.5-5.1) mmol/L Chloride (98-107) mmol/L Carbon Dioxide (22-30) mmol/L Anion Gap mmol/L BUN (9-20) mg/dL Creatinine (0.66-1.25) mg/dL Est GFR (CKD-EPI)AfAm (>60 ml/min/1.73 sqM) Est GFR (CKD-EPI)NonAf (>60 ml/min/1.73 sqM) Glucose (74-99) mg/dL POC Glucose (mg/dL) 398 H (70-110) mg/dL POC Glu Paid Search Marketing Strategist ID Alison, Gabriel Plasma Lactic Acid Moises (0.7-2.0) mmol/L Calcium (8.4-10.2) mg/dL Phosphorus (2.5-4.5) mg/dL Magnesium (1.6-2.3) mg/dL Total Bilirubin (0.2-1.3) mg/dL AST (17-59) U/L ALT (4-49) U/L Alkaline Phosphatase (38-126) U/L Total Protein (6.3-8.2) g/dL Albumin (3.5-5.0) g/dL Urine Color Colorless Urine Appearance Clear (Clear) Urine pH 5.5 (5.0-8.0) Ur Specific [place] 1.033 (1.001-1.035) Urine Protein Trace H (Negative) Urine Glucose (UA) 4+ H (Negative) Urine Ketones 4+ H (Negative) Urine Blood Negative (Negative) Urine Nitrite Negative (Negative) Urine Bilirubin Negative (Negative) Urine Urobilinogen <2.0 (<2.0) mg/dL Ur Leukocyte Esterase Negative (Negative) Acetone, Qual (Negative) 10/27/23 10/27/23 Range/Units 17:02 17:02 WBC (3.8-10.6) k/uL RBC (4.30-5.90) m/uL Hgb (13.0-17.5) gm/dL Hct (39.0-53.0) % MCV (80.0-100.0) fL MCH (25.0-35.0) pg MCHC (31.0-37.0) g/dL RDW (11.5-15.5) % Plt Count (150-450) k/uL MPV Neutrophils % % Lymphocytes % % Monocytes % % Eosinophils % % Basophils % % Neutrophils # (1.3-7.7) k/uL Lymphocytes # (1.0-4.8) k/uL Monocytes # (0-1.0) k/uL Eosinophils # (0-0.7) k/uL Basophils # (0-0.2) k/uL Sodium 136 L (137-145) mmol/L Potassium 4.0 (3.5-5.1) mmol/L Chloride 101 (98-107) mmol/L Carbon Dioxide 19 L (22-30) mmol/L Anion Gap 16 mmol/L BUN 6 L (9-20) mg/dL Creatinine 0.49 L (0.66-1.25) mg/dL Est GFR (CKD-EPI)AfAm >90 (>60 ml/min/1.73 sqM) Est GFR (CKD-EPI)NonAf >90 (>60 ml/min/1.73 sqM) Glucose 356 H (74-99) mg/dL POC Glucose (mg/dL) (70-110) mg/dL POC Glu Paid Search Marketing Strategist ID Plasma Lactic Acid Moises 1.0 (0.7-2.0) mmol/L Calcium 8.6 (8.4-10.2) mg/dL Phosphorus 3.1 (2.5-4.5) mg/dL Magnesium 1.6 (1.6-2.3) mg/dL Total Bilirubin 1.0 (0.2-1.3) mg/dL AST 39 (17-59) U/L ALT 70 H (4-49) U/L Alkaline Phosphatase 86 (38-126) U/L Total Protein 7.8 (6.3-8.2) g/dL Albumin 4.4 (3.5-5.0) g/dL Urine Color Urine Appearance (Clear) Urine pH (5.0-8.0) Ur Specific [place] (1.001-1.035) Urine Protein (Negative) Urine Glucose (UA) (Negative) Urine Ketones (Negative) Urine Blood (Negative) Urine Nitrite (Negative) Urine Bilirubin (Negative) Urine Urobilinogen (<2.0) mg/dL Ur Leukocyte Esterase (Negative) Acetone, Qual Positive (Negative) Critical Care Time Critical Care Time: Yes Total Critical Care Time: 31 Disposition Clinical Impression: Weakness, Hyperglycemia, DKA (diabetic ketoacidosis) Disposition: ADMITTED IP TO THIS [facility] Condition: Serious Is patient prescribed a controlled substance at d/c from ED?: No Time of Disposition: 19:20
[2023-10-27 17:41] LABS: Basophils # (A) 0.1 k/uL (0-0.2); Basophils % (A) 1 %; Eosinophils # (A) 0.1 k/uL (0-0.7); Eosinophils % (A) 2 %; HGB 13.3 gm/dL (13.0-17.5); Lymphocytes # (A) 1.8 k/uL (1.0-4.8); Lymphocytes % (A) 27 %; MCH 26.5 pg (25.0-35.0); MCHC 31.7 g/dL (31.0-37.0); MCV 83.6 fL (80.0-100.0); Mean Platelet Volume 8.6; Monocytes # (A) 0.4 k/uL (0-1.0); Monocytes % (A) 6 %; Neutrophils # (A) 4.3 k/uL (1.3-7.7); Neutrophils % (A) 62 %; Platelet Count 226 k/uL (150-450); RBC 5.03 m/uL (4.30-5.90); RDW 14.8 % (11.5-15.5); WBC 6.9 k/uL (3.8-10.6)
[2023-10-27 17:56] LABS: ALT 70 U/L (4-49); AST 39 U/L (17-59); African American GFR (CKD) >90 (>60 ml/min/1.73 sqM); Albumin 4.4 g/dL (3.5-5.0); Alkaline Phosphatase 86 U/L (38-126); Anion Gap 16 mmol/L; Blood Urea Nitrogen 6 mg/dL (9-20); Calcium 8.6 mg/dL (8.4-10.2); Carbon Dioxide 19 mmol/L (22-30); Chloride 101 mmol/L (98-107); Glucose 356 mg/dL (74-99); Magnesium 1.6 mg/dL (1.6-2.3); Non-African American GFR(CKD) >90 (>60 ml/min/1.73 sqM); Phosphorus 3.1 mg/dL (2.5-4.5); Sodium 136 mmol/L (137-145); Total Protein 7.8 g/dL (6.3-8.2)
[2023-10-27] MEDS: SODIUM CHLORIDE 0.9% 2,000 ML IV STA (18:10)
[2023-10-27 18:30] LABS: Appearance,Urine Clear (Clear); Bilirubin,Urine Negative (Negative); Blood,Urine Negative (Negative); Color,Urine Colorless; Glucose,Urine (UA) 4+ (Negative); Leukocyte Esterase,Urine Negative (Negative); Nitrite,Urine Negative (Negative); PH, Urine 5.5 (5.0-8.0); Protein,Urine Trace (Negative); Specific Gravity,Urine 1.033 (1.001-1.035); Urobilinogen,Urine <2.0 mg/dL (<2.0)
[2023-10-27 18:53] LABS: Ketones,Urine 4+ (Negative)
[2023-10-27] MEDS ORDERED: ONDANSETRON 4 MG/2 ML VIAL IVP PRN (19:18)
[2023-10-27] MEDS ORDERED: NALOXONE 0.4 MG/ML 1 ML VIAL IV PRN (19:18)
[2023-10-27 21:00] LABS: African American GFR (CKD) >90 (>60 ml/min/1.73 sqM); Anion Gap 14 mmol/L; Blood Urea Nitrogen 6 mg/dL (9-20); Carbon Dioxide 18 mmol/L (22-30); Chloride 103 mmol/L (98-107); Glucose 310 mg/dL (74-99); Non-African American GFR(CKD) >90 (>60 ml/min/1.73 sqM); Potassium 3.8 mmol/L (3.5-5.1); Sodium 135 mmol/L (137-145)
[2023-10-27 21:41] LABS: Glucose,Whole Blood 316 mg/dL (70-110)
[2023-10-27] MEDS: SODIUM CHLORIDE 0.9% 1,000 ML IV ONE (22:14)
[2023-10-27] MEDS: SODIUM CHLORIDE 0.9% 1,000 ML IV SCH (22:15)
[2023-10-27] MEDS: INSULIN REGULAR 100 UNIT in SODIUM CHLORIDE 0.9% 100 ML IV SCH (22:55)
[2023-10-27 23:17] LABS: Glucose,Whole Blood 335 mg/dL (70-110)
[2023-10-28 00:14] LABS: Glucose,Whole Blood 282 mg/dL (70-110)
[2023-10-28] MEDS: D5-0.45% NACL WITH KCL 20MEQ/L 1,000 ML IV SCH (00:26)
[2023-10-28 01:12] LABS: Glucose,Whole Blood 226 mg/dL (70-110)
[2023-10-28 01:21] LABS: African American GFR (CKD) >90 (>60 ml/min/1.73 sqM); Anion Gap 13 mmol/L; Blood Urea Nitrogen 5 mg/dL (9-20); Carbon Dioxide 19 mmol/L (22-30); Chloride 103 mmol/L (98-107); Glucose 226 mg/dL (74-99); Non-African American GFR(CKD) >90 (>60 ml/min/1.73 sqM); Potassium 3.1 mmol/L (3.5-5.1); Sodium 135 mmol/L (137-145)
--- NOTE | 2023-10-28 01:28 | P.HPIM ---
History of Present Illness H&P Date: 10/27/23 Chief Complaint: Elevated blood sugar 32-year-old male with history of spina bifida, diabetes mellitus Patient coming in for evaluation due to hyperglycemia and noncompliance with his insulin. He was diagnosed with diabetes about a year ago over the past month he claims that he lost his prescription and was not taking any insulin at home he was sporadically checking his blood sugars but admits that he is not compliant with his diet or medication. He denies any nausea vomiting or abdominal pain denies any changes in his mental status. Today he was at his doctor's office for routine follow-up when they found that he has abnormal labs and elevated blood sugar for which she was sent to the hospital for further evaluation. Patient also admits and reports colostomy bleeding that is been going on for over a month now he does not have a colostomy bag he places an absorbent pad over his belly and claims this is the set up that was most suitable for him because he was allergic to most of the colostomy bags. Patient also has urinary incontinence secondary to history of spina bifida. He was also recently treated for a diabetic foot ulcer over the second toe web of the right foot. Again denies any fevers chills denies any drainage from the wound. He claims that the wound has almost healed compared to how it was couple months ago review of systems Pertinent positives as noted in HPI. All other systems were reviewed and are negative on exam Constitutional: No acute distress, conversant, pleasant Eyes: Anicteric sclerae, moist conjunctiva, Pupils equal round reactive to light ENMT: NC/AT Oropharynx clear, no erythema, or exudates Neck: Supple, no masses, or JVD No carotid bruits No thyromegaly Lungs: Clear to auscultation Clear to percussion Normal respiratory effort, no accessory muscle use Cardiovascular: Heart regular in rate and rhythm, No murmurs, gallops, or rubs No peripheral edema Abdominal: Soft Nontender, no guarding, rebound or rigidity Abdomen moving with respiration Normoactive bowel sounds Abdominal wall hernia Bleeding from left lower quadrant colostomy Extremities: No digital cyanosis Clubfoot bilaterally Pedal pulses intact and symmetrical Radial pulses intact and symmetrical No calf tenderness Psychiatric: Alert and oriented to person, place and time Neuro Muscles Strength 5/5 in bilateral upper extremity, patient with paraplegia Past Medical History Past Medical History: Diabetes Mellitus Additional Past Medical History / Comment(s): club foot, spinal fibida, hydrocephalus, incontinent History of Any Multi-Drug Resistant Organisms: MRSA Date of last positivie culture/infection: 2015 MDRO Source:: buttocks Past Surgical History: Back Surgery, Joint Replacement Additional Past Surgical History / Comment(s): shunt , left hip, colostomy Past Anesthesia/Blood Transfusion Reactions: No Reported Reaction Past Psychological History: No Psychological Hx Reported Smoking Status: Vaper Past Alcohol Use History: None Reported Past Drug Use History: Marijuana - Past Family History Mother Family Medical History: Blood Disorder Additional Family Medical History / Comment(s): Mother is living and currently age 42. States receives blood transfusions Father History Unknown: Yes Additional Family Medical History / Comment(s): Father at age 50 from unknown cause family Additional Family Medical History / Comment(s): no report of CAD Medications and Allergies Home Medications Medication Instructions Recorded Confirmed Type Omeprazole 40 mg PO DIRECTED 10/27/23 10/27/23 History Allergies Allergy/AdvReac Type Severity Reaction Status Date / Time No Known Allergies Allergy Verified 10/27/23 17:14 Physical Exam Vitals: Vital Signs Temp Pulse Resp BP Pulse Ox 10/27/23 19:05 67 18 124/80 100 10/27/23 14:48 97.7 F 107 H 20 132/84 98 Intake and Output 10/27/23 10/27/23 10/28/23 14:59 22:59 06:59 Intake Total 14.363 Balance 14.363 Intake: Intake, IV Titration 14.363 Amount Insulin Regular 100 unit 14.363 In Sodium Chloride 0.9% 100 ml @ 0.05 UNITS/KG/HR 5.727 mls/hr IV .[id number] [facility] Rx#:[id number] Other: Weight 113.398 kg Results CBC & Chem 7: 10/27/23 17:02 10/27/23 20:10 Labs: Abnormal Lab Results - Last 24 Hours (Table) 10/27/23 10/27/23 10/27/23 Range/Units 14:48 17:02 17:02 Sodium 136 L (137-145) mmol/L Carbon Dioxide 19 L (22-30) mmol/L BUN 6 L (9-20) mg/dL Creatinine 0.49 L (0.66-1.25) mg/dL Glucose 356 H (74-99) mg/dL POC Glucose (mg/dL) 398 H (70-110) mg/dL ALT 70 H (4-49) U/L Urine Protein Trace H (Negative) Urine Glucose (UA) 4+ H (Negative) Urine Ketones 4+ H (Negative) 10/27/23 10/27/23 10/27/23 Range/Units 20:10 21:40 23:16 Sodium 135 L (137-145) mmol/L Carbon Dioxide 18 L (22-30) mmol/L BUN 6 L (9-20) mg/dL Creatinine 0.51 L (0.66-1.25) mg/dL Glucose 310 H (74-99) mg/dL POC Glucose (mg/dL) 316 H 335 H (70-110) mg/dL ALT (4-49) U/L Urine Protein (Negative) Urine Glucose (UA) (Negative) Urine Ketones (Negative) 10/28/23 10/28/23 Range/Units 00:12 01:09 Sodium (137-145) mmol/L Carbon Dioxide (22-30) mmol/L BUN (9-20) mg/dL Creatinine (0.66-1.25) mg/dL Glucose (74-99) mg/dL POC Glucose (mg/dL) 282 H 226 H (70-110) mg/dL ALT (4-49) U/L Urine Protein (Negative) Urine Glucose (UA) (Negative) Urine Ketones (Negative) Assessment and Plan Assessment: 32-year-old male with history of spina bifida, diabetes mellitus coming in for hyperglycemia patient admits to noncompliance with his medications and diet I discussed the case with ED doctor and accepted the admission for DKA with anticipated length of stay more than 2 midnights Diabetic ketoacidosis secondary to noncompliance with medications Keep n.p.o. Follow insulin protocol for DKA Currently on insulin drip Continue with IV fluid hydration transition fluids when blood sugar less than 300 transition to D5.9 at 150 cc/h Check electrolytes every 4 hours Check blood sugar every 1 hour Transition to subcu insulin when anion gap closed and bicarb above 19 White count 6.9 hemoglobin 13.3 both unremarkable Platelet 226 unremarkable Initial labs showed anion gap of 16 bicarb of 18 sodium 135 potassium 3.8 BUN 6 creatinine 0.5 Blood sugar was above 300 Positive acetone Colostomy bleeding Protonix p.o. daily General surgery evaluation Hemoglobin unremarkable 13.3 Continue to monitor hemoglobin every 6 hours DVT prophylaxis heparin subcu 3 times daily, discontinue if hemoglobin starts trending down Full code
[2023-10-28 02:19] LABS: Glucose,Whole Blood 198 mg/dL (70-110)
[2023-10-28 03:09] LABS: Glucose,Whole Blood 186 mg/dL (70-110)
[2023-10-28] MEDS ORDERED: Potassium Replacement Protocol 1 EACH MISC MISCELLANE PRN (03:36)
[2023-10-28] MEDS: POTASSIUM CHLORIDE ER 20 MEQ TAB.ER PO SCH (03:46)
[2023-10-28 04:46] LABS: Glucose,Whole Blood 134 mg/dL (70-110)
[2023-10-28 06:17] LABS: Glucose,Whole Blood 134 mg/dL (70-110)
[2023-10-28 07:28] LABS: Glucose,Whole Blood 143 mg/dL (70-110)
[2023-10-28] MEDS: HEPARIN SODIUM,PORCINE 5,000 UNIT/ML 1 ML VIAL SQ SCH (07:33)
[2023-10-28] MEDS: PANTOPRAZOLE 40 MG TABLET PO SCH (07:33)
--- NOTE | 2023-10-28 07:41 | P.CON ---
Consult Note - . Consult date: 10/28/23 Assessment/Plan:: History of Present Illness H&P Date: 10/27/23 Chief Complaint: Elevated blood sugar 32-year-old male with history of spina bifida, diabetes mellitus Patient coming in for evaluation due to hyperglycemia and noncompliance with his insulin. He was diagnosed with diabetes about a year ago over the past month he claims that he lost his prescription and was not taking any insulin at home he was sporadically checking his blood sugars but admits that he is not compliant with his diet or medication. He denies any nausea vomiting or abdominal pain denies any changes in his mental status. Today he was at his doctor's office for routine follow-up when they found that he has abnormal labs and elevated blood sugar for which she was sent to the hospital for further evaluation. Patient also admits and reports colostomy bleeding that is been going on for over a month now he does not have a colostomy bag he places an absorbent pad over his belly and claims this is the set up that was most suitable for him because he was allergic to most of the colostomy bags. Patient also has urinary incontinence secondary to history of spina bifida. He was also recently treated for a diabetic foot ulcer over the second toe web of the right foot. Again denies any fevers chills denies any drainage from the wound. He claims that the wound has almost healed compared to how it was couple months ago review of systems Pertinent positives as noted in HPI. All other systems were reviewed and are negative on exam Constitutional: No acute distress, conversant, pleasant Eyes: Anicteric sclerae, moist conjunctiva, Pupils equal round reactive to light ENMT: NC/AT Oropharynx clear, no erythema, or exudates Neck: Supple, no masses, or JVD No carotid bruits No thyromegaly Lungs: Clear to auscultation Clear to percussion Normal respiratory effort, no accessory muscle use Cardiovascular: Heart regular in rate and rhythm, No murmurs, gallops, or rubs No peripheral edema Abdominal: Soft Nontender, no guarding, rebound or rigidity Abdomen moving with respiration Normoactive bowel sounds Abdominal wall hernia Bleeding from left lower quadrant colostomy Extremities: No digital cyanosis Clubfoot bilaterally Pedal pulses intact and symmetrical Radial pulses intact and symmetrical No calf tenderness Psychiatric: Alert and oriented to person, place and time Neuro Muscles Strength 5/5 in bilateral upper extremity, patient with paraplegia Past Medical History Past Medical History: Diabetes Mellitus Additional Past Medical History / Comment(s): club foot, spinal fibida, hydrocephalus, incontinent History of Any Multi-Drug Resistant Organisms: MRSA Date of last positivie culture/infection: 2015 MDRO Source:: buttocks Past Surgical History: Back Surgery, Joint Replacement Additional Past Surgical History / Comment(s): shunt , left hip, colostomy Past Anesthesia/Blood Transfusion Reactions: No Reported Reaction Past Psychological History: No Psychological Hx Reported Smoking Status: Vaper Past Alcohol Use History: None Reported Past Drug Use History: Marijuana - Past Family History Mother Family Medical History: Blood Disorder Additional Family Medical History / Comment(s): Mother is living and currently age 42. States receives blood transfusions Father History Unknown: Yes Additional Family Medical History / Comment(s): Father at age 50 from unknown cause family Additional Family Medical History / Comment(s): no report of CAD Physical Exam Vitals: VSS General-NAD Abdomen-soft, NTND, Colostomy- no active bleeding Assessment: 32-year-old male with Colostomy bleeding No active bleeding currently-will follow Protonix p.o. daily Hemoglobin stable 13.3 Monitor H/H
[2023-10-28 08:20] LABS: Glucose,Whole Blood 157 mg/dL (70-110)
[2023-10-28 09:21] LABS: Glucose,Whole Blood 237 mg/dL (70-110)
[2023-10-28 09:23] LABS: ALT 60 U/L (4-49); AST 34 U/L (17-59); African American GFR (CKD) >90 (>60 ml/min/1.73 sqM); Albumin 3.6 g/dL (3.5-5.0); Alkaline Phosphatase 74 U/L (38-126); Anion Gap 12 mmol/L; Blood Urea Nitrogen 6 mg/dL (9-20); Calcium 8.3 mg/dL (8.4-10.2); Carbon Dioxide 18 mmol/L (22-30); Chloride 104 mmol/L (98-107); Glucose 217 mg/dL (74-99); Magnesium 1.5 mg/dL (1.6-2.3); Non-African American GFR(CKD) >90 (>60 ml/min/1.73 sqM); Phosphorus 2.8 mg/dL (2.5-4.5); Sodium 134 mmol/L (137-145); Total Protein 6.6 g/dL (6.3-8.2)
[2023-10-28 10:21] LABS: Glucose,Whole Blood 282 mg/dL (70-110)
--- NOTE | 2023-10-28 10:51 | P.PN ---
Subjective Progress Note Date: 10/28/23 No new complaints. Gap is closed, bicarb is 18. Ongoing insulin gtt. Gen: In NAD, non-toxic HEENT: normocephalic, atraumatic, hearing acuity is intant, mucous membranes moist CVS: perfusing all extremities well, no pitting edema, Respiratory: symmetric chest expansion, no accessory muscle use, GI: soft, NTTP, ND, : no suprapubic tenderness, no CVA tenderness MSK/Derm: no rashes, cyanosis Neuro: CN II-XII intact, no motor weakness, Psych: cooperative, euthymic mood, judgment and insight is intact Hospital course: 32-year-old male with history of spina bifida, diabetes mellitus coming in for hyperglycemia patient admits to noncompliance with his medications and diet I discussed the case with ED doctor and accepted the admission for DKA with anticipated length of stay more than 2 midnights White count 6.9 hemoglobin 13.3 both unremarkable Platelet 226 unremarkable Initial labs showed anion gap of 16 bicarb of 18 sodium 135 potassium 3.8 BUN 6 creatinine 0.5 Blood sugar was above 300 Positive acetone Hemoglobin unremarkable 13.3 Assessment/plan: Diabetic ketoacidosis secondary to noncompliance with medications Keep n.p.o. Follow insulin protocol for DKA Currently on insulin drip Continue with IV fluid hydration transition fluids when blood sugar less than 300 transition to D5.9 at 150 cc/h Check electrolytes every 4 hours Check blood sugar every 1 hour Transition to subcu insulin when anion gap closed and bicarb above 19 Colostomy bleeding Protonix p.o. daily General surgery evaluation Continue to monitor hemoglobin every 6 hours DVT prophylaxis heparin subcu 3 times daily, discontinue if hemoglobin starts trending down Full code Objective - Vital Signs Vital signs: Vital Signs Temp 97.7 F 10/27/23 14:48 Pulse 81 10/28/23 09:00 Resp 18 10/28/23 09:00 BP 126/80 10/28/23 09:00 Pulse Ox 98 10/28/23 09:00 FiO2 Intake & Output 10/27/23 10/28/23 10/28/23 18:59 06:59 18:59 Intake Total 43.555 1.937 Balance 43.555 1.937 Weight 113.398 kg Intake: Intake, IV Titration 43.555 1.937 Amount Insulin Regular 100 unit 43.555 1.937 In Sodium Chloride 0.9% 100 ml @ 0.05 UNITS/KG/HR 5.727 mls/hr IV .[id number] [facility] Rx#:[id number] - Labs CBC & Chem 7: 10/27/23 17:02 10/28/23 08:55 Labs: Abnormal Lab Results - Last 24 Hours (Table) 10/27/23 10/27/23 10/27/23 Range/Units 14:48 17:02 17:02 Sodium 136 L (137-145) mmol/L Potassium (3.5-5.1) mmol/L Carbon Dioxide 19 L (22-30) mmol/L BUN 6 L (9-20) mg/dL Creatinine 0.49 L (0.66-1.25) mg/dL Glucose 356 H (74-99) mg/dL POC Glucose (mg/dL) 398 H (70-110) mg/dL Calcium (8.4-10.2) mg/dL Magnesium (1.6-2.3) mg/dL ALT 70 H (4-49) U/L Urine Protein Trace H (Negative) Urine Glucose (UA) 4+ H (Negative) Urine Ketones 4+ H (Negative) 10/27/23 10/27/23 10/27/23 Range/Units 20:10 21:40 23:16 Sodium 135 L (137-145) mmol/L Potassium (3.5-5.1) mmol/L Carbon Dioxide 18 L (22-30) mmol/L BUN 6 L (9-20) mg/dL Creatinine 0.51 L (0.66-1.25) mg/dL Glucose 310 H (74-99) mg/dL POC Glucose (mg/dL) 316 H 335 H (70-110) mg/dL Calcium (8.4-10.2) mg/dL Magnesium (1.6-2.3) mg/dL ALT (4-49) U/L Urine Protein (Negative) Urine Glucose (UA) (Negative) Urine Ketones (Negative) 10/28/23 10/28/23 10/28/23 Range/Units 00:12 00:12 01:09 Sodium 135 L (137-145) mmol/L Potassium 3.1 L (3.5-5.1) mmol/L Carbon Dioxide 19 L (22-30) mmol/L BUN 5 L (9-20) mg/dL Creatinine 0.48 L (0.66-1.25) mg/dL Glucose 226 H (74-99) mg/dL POC Glucose (mg/dL) 282 H 226 H (70-110) mg/dL Calcium (8.4-10.2) mg/dL Magnesium (1.6-2.3) mg/dL ALT (4-49) U/L Urine Protein (Negative) Urine Glucose (UA) (Negative) Urine Ketones (Negative) 10/28/23 10/28/23 10/28/23 Range/Units 02:18 03:08 04:44 Sodium (137-145) mmol/L Potassium (3.5-5.1) mmol/L Carbon Dioxide (22-30) mmol/L BUN (9-20) mg/dL Creatinine (0.66-1.25) mg/dL Glucose (74-99) mg/dL POC Glucose (mg/dL) 198 H 186 H 134 H (70-110) mg/dL Calcium (8.4-10.2) mg/dL Magnesium (1.6-2.3) mg/dL ALT (4-49) U/L Urine Protein (Negative) Urine Glucose (UA) (Negative) Urine Ketones (Negative) 10/28/23 10/28/23 10/28/23 Range/Units 06:14 07:27 08:18 Sodium (137-145) mmol/L Potassium (3.5-5.1) mmol/L Carbon Dioxide (22-30) mmol/L BUN (9-20) mg/dL Creatinine (0.66-1.25) mg/dL Glucose (74-99) mg/dL POC Glucose (mg/dL) 134 H 143 H 157 H (70-110) mg/dL Calcium (8.4-10.2) mg/dL Magnesium (1.6-2.3) mg/dL ALT (4-49) U/L Urine Protein (Negative) Urine Glucose (UA) (Negative) Urine Ketones (Negative) 10/28/23 10/28/23 10/28/23 Range/Units 08:55 09:20 10:19 Sodium 134 L (137-145) mmol/L Potassium (3.5-5.1) mmol/L Carbon Dioxide 18 L (22-30) mmol/L BUN 6 L (9-20) mg/dL Creatinine 0.41 L (0.66-1.25) mg/dL Glucose 217 H (74-99) mg/dL POC Glucose (mg/dL) 237 H 282 H (70-110) mg/dL Calcium 8.3 L (8.4-10.2) mg/dL Magnesium 1.5 L (1.6-2.3) mg/dL ALT 60 H (4-49) U/L Urine Protein (Negative) Urine Glucose (UA) (Negative) Urine Ketones (Negative)
[2023-10-28 11:28] LABS: Glucose,Whole Blood 296 mg/dL (70-110)
[2023-10-28 12:34] LABS: Glucose,Whole Blood 302 mg/dL (70-110)
[2023-10-28 12:36] LABS: Basophils % (A) 0 %; Eosinophils # (A) 0.2 k/uL (0-0.7); Eosinophils % (A) 3 %; Hypochromasia Slight; Lymphocytes # (A) 1.9 k/uL (1.0-4.8); Lymphocytes % (A) 28 %; MCH 26.9 pg (25.0-35.0); MCHC 31.6 g/dL (31.0-37.0); MCV 84.9 fL (80.0-100.0); Mean Platelet Volume 9.7; Monocytes # (A) 0.5 k/uL (0-1.0); Monocytes % (A) 8 %; Neutrophils # (A) 3.9 k/uL (1.3-7.7); Neutrophils % (A) 59 %; Platelet Count 194 k/uL (150-450); RBC 4.48 m/uL (4.30-5.90); RDW 15.1 % (11.5-15.5); WBC 6.7 k/uL (3.8-10.6)
[2023-10-28 13:26] LABS: ALT 63 U/L (4-49); AST 39 U/L (17-59); African American GFR (CKD) >90 (>60 ml/min/1.73 sqM); Albumin 3.6 g/dL (3.5-5.0); Alkaline Phosphatase 75 U/L (38-126); Anion Gap 13 mmol/L; Blood Urea Nitrogen 5 mg/dL (9-20); Calcium 8.4 mg/dL (8.4-10.2); Carbon Dioxide 16 mmol/L (22-30); Chloride 105 mmol/L (98-107); Glucose 262 mg/dL (74-99); Non-African American GFR(CKD) >90 (>60 ml/min/1.73 sqM); Potassium 4.1 mmol/L (3.5-5.1); Sodium 134 mmol/L (137-145); Total Protein 6.7 g/dL (6.3-8.2)
[2023-10-28 13:29] LABS: Glucose,Whole Blood 258 mg/dL (70-110)
[2023-10-28] MEDS: HYDROmorphone 1 MG/ML 1 ML SYRINGE IVP PRN (13:48)
[2023-10-28 15:06] LABS: Glucose,Whole Blood 237 mg/dL (70-110)
[2023-10-28 16:00] LABS: Glucose,Whole Blood 256 mg/dL (70-110)
[2023-10-28] MEDS: MAGNESIUM SULFATE-D5W PMX 1 GM in DEXTROSE/WATER 1 100ML.BAG IVPB SCH (16:07)
[2023-10-28] MEDS: INSULIN DETEMIR (LEVEMIR) 100 UNIT/ML SYR SQ STA (16:26)
[2023-10-28 17:02] LABS: Glucose,Whole Blood 307 mg/dL (70-110)
[2023-10-28] MEDS: INSULIN ASPART (NovoLOG) 100 UNIT/ML VIAL SQ SCH ×3 (17:03→22:38)
[2023-10-28 18:14] LABS: African American GFR (CKD) >90 (>60 ml/min/1.73 sqM); Anion Gap 11 mmol/L; Blood Urea Nitrogen 5 mg/dL (9-20); Calcium 8.3 mg/dL (8.4-10.2); Carbon Dioxide 21 mmol/L (22-30); Chloride 102 mmol/L (98-107); Glucose 325 mg/dL (74-99); Non-African American GFR(CKD) >90 (>60 ml/min/1.73 sqM); Potassium 4.1 mmol/L (3.5-5.1); Sodium 134 mmol/L (137-145)
[2023-10-28 22:02] LABS: Glucose,Whole Blood 361 mg/dL (70-110)
[2023-10-28 23:52] LABS: African American GFR (CKD) >90 (>60 ml/min/1.73 sqM); Anion Gap 10 mmol/L; Blood Urea Nitrogen 5 mg/dL (9-20); Calcium 8.1 mg/dL (8.4-10.2); Carbon Dioxide 20 mmol/L (22-30); Chloride 103 mmol/L (98-107); Glucose 350 mg/dL (74-99); Non-African American GFR(CKD) >90 (>60 ml/min/1.73 sqM); Potassium 3.8 mmol/L (3.5-5.1); Sodium 133 mmol/L (137-145)
[2023-10-29 02:08] LABS: Glucose,Whole Blood 304 mg/dL (70-110)
[2023-10-29 06:06] LABS: Glucose,Whole Blood 322 mg/dL (70-110)
[2023-10-29] MEDS: INSULIN DETEMIR (LEVEMIR) 100 UNIT/ML SYR SQ SCH (06:53)
[2023-10-29 07:28] LABS: African American GFR (CKD) >90 (>60 ml/min/1.73 sqM); Anion Gap 11 mmol/L; Blood Urea Nitrogen 4 mg/dL (9-20); Calcium 8.1 mg/dL (8.4-10.2); Carbon Dioxide 19 mmol/L (22-30); Chloride 102 mmol/L (98-107); Glucose 321 mg/dL (74-99); Non-African American GFR(CKD) >90 (>60 ml/min/1.73 sqM); Sodium 132 mmol/L (137-145)
[2023-10-29 10:57] VITALS: RESP 16; TEMP 98.3
[2023-10-29 11:23] LABS: Glucose,Whole Blood 439 mg/dL (70-110)
--- NOTE | 2023-10-29 11:28 | P.DS ---
Providers Date of admission: 10/27/23 19:21 Expected date of discharge: 10/29/23 Attending physician: Mahi Cardona MD Consults: 10/28/23 01:20 Consult Physician Routine Consulting Provider: Roger Nino Consult Reason/Comments: colostomy bleeding Do you want consulting provider notified?: Yes Primary care physician: Jannette [facility] Course: Diabetic ketoacidosis secondary to noncompliance with medications Colostomy bleeding Gen: In NAD, non-toxic HEENT: normocephalic, atraumatic, hearing acuity is intant, mucous membranes moist CVS: perfusing all extremities well, no pitting edema, Respiratory: symmetric chest expansion, no accessory muscle use, GI: soft, NTTP, ND, : no suprapubic tenderness, no CVA tenderness MSK/Derm: no rashes, cyanosis Neuro: CN II-XII intact, no motor weakness, Psych: cooperative, euthymic mood, judgment and insight is intact Hospital course: 32-year-old male with history of spina bifida, diabetes mellitus coming in for hyperglycemia patient admits to noncompliance with his medications and diet . Initial workup: White count 6.9 hemoglobin 13.3 both unremarkable Platelet 226 unremarkable Initial labs showed anion gap of 16 bicarb of 18 sodium 135 potassium 3.8 BUN 6 creatinine 0.5 Blood sugar was above 300 Positive acetone Hemoglobin unremarkable 13.3 Follow-up: Patient was treated with DKA protocol, his gap was successfully closed with insulin drip, he was tolerating a regular carbohydrate consistent diet, and remained close after transitioning to subcutaneous insulin. Patient was counseled on the importance of using diabetes medications to stay out of DKA, and insulin supplies were sent to his pharmacy. Patient to follow-up with primary care physician. He was also seen by general surgery regarding bleeding at the site of his colostomy, however, patient was adamant about not requiring colostomy supplies due to having allergies to them in the past. Patient should follow-up with general surgery regarding his colostomy as needed. I spent 38 minutes coordinating this discharge Patient Condition at Discharge: Good Plan - Discharge Summary Discharge Rx Participant: Yes New Discharge Prescriptions: New Insulin Glargine,Hum.rec.anlog [Lantus Solostar Pen] 30 units SQ DAILY #1 each Blood Sugar Diagnostic [Test Strips] 1 strip MISCELLANE AC-TID #90 strip Insulin Aspart [NovoLOG Flexpen] 10 units SQ AC-TID #1 each Continue Omeprazole 40 mg PO DIRECTED Discharge Medication List Omeprazole 40 mg PO DIRECTED 10/27/23 [History] Blood Sugar Diagnostic [Test Strips] 1 strip MISCELLANE AC-TID #90 strip 10/29/23 [Rx] Insulin Aspart [NovoLOG Flexpen] 10 units SQ AC-TID #1 each 10/29/23 [Rx] Insulin Glargine,Hum.rec.anlog [Lantus Solostar Pen] 30 units SQ DAILY #1 each 10/29/23 [Rx] Follow up Appointment(s)/Referral(s): Jannette Sam MD [Primary Care Provider] - 1-2 days Ambulatory/Diagnostic Orders: Ambulatory Miscellaneous Order [MISC.AMB] Location: None Selected Patient Instructions/Handouts: Type 2 Diabetes in Adults: New Diagnosis (DC) Discharge Disposition: HOME SELF-CARE
[2023-10-29 14:08] VITALS: BP 119/72; PULSE 90
== END 2023-10-29 15:17 | disposition home or self-care (01) | DRG 420 ==
LOC: EC 14:31 → 3SCARD 19:21
PROVIDERS: ADMIT Internal Medicine; ATTEND Internal Medicine
DX: E11.10 Type 2 diabetes mellitus with ketoacidosis without coma (principal); K94.01 Colostomy hemorrhage; Q66.89 Other specified congenital deformities of feet; N39.498 Other specified urinary incontinence; Q05.9 Spina bifida, unspecified; L97.509 Non-pressure chronic ulcer of other part of unspecified foot with unspecified severity; F17.290 Nicotine dependence, other tobacco product, uncomplicated; E11.621 Type 2 diabetes mellitus with foot ulcer; E11.65 Type 2 diabetes mellitus with hyperglycemia; Z79.899 Other long term (current) drug therapy; Z79.4 Long term (current) use of insulin; Z91.119 Patient's noncompliance with dietary regimen due to unspecified reason; Z91.148 Patient's other noncompliance with medication regimen for other reason; Z98.2 Presence of cerebrospinal fluid drainage device; Z96.642 Presence of left artificial hip joint; Z86.14 Personal history of Methicillin resistant Staphylococcus aureus infection
CPT/HCPCS: 36415; 80048; 80051; 80053; 81003; 82009; 82565; 82947; 83605; 83735; 84100; 84520; 85025; 96361; 96365; 96366; 96367; 96375; 99291